=== PATIENT | female | born 1975 | race Caucasian/White ===

== ENCOUNTER → 2017-10-25 11:07 | Outpatient (CLI) | payer MEDICARE, SELFPAY ==
[2017-10-25 13:30] LABS: Basophils % 0.4 % (0.1-2.0); Eosinophils # 0.3 K/mm3 (0.0-0.4); Eosinophils % 2.8 % (0.1-12.0); Hematocrit 44.6 % (37.0-47.0); Hemoglobin 14.8 g/dL (12.2-16.2); Lymphocytes # 4.4 K/mm3 (0.7-4.5); Lymphocytes % 40.2 K/mm3 (10-50); Mean Corpuscular HGB Conc 33.2 g/dL (31.8-35.4); Mean Corpuscular Volume 93.6 fl (81-99); Mean Platelet Volume 7.6 fl (7.4-10.4); Monocytes # 0.5 K/mm3 (0.1-1.0); Neutrophils # 5.7 K/mm3 (1.8-7.8); Neutrophils % 51.8 % (37.0-80.0); Platelet Count 322 K/mm3 (142-424); Red Blood Count 4.77 M/mm3 (4.20-5.40); Red Cell Distribution Width 13.4 % (11.5-17.5)
== END ==
PROVIDERS: PCP Physician Assistant
DX: H46.8 Other optic neuritis (principal)
CPT/HCPCS: 36415; 85025

== ENCOUNTER 2017-11-04 00:43 | Emergency (ER) | payer MEDICARE, SELFPAY ==
[2017-11-04 00:45] VITALS: BP 142/94; PULSE 100; RESP 20; TEMP 36.3; O2SAT 98; BMI 29.4
--- NOTE | 2017-11-04 00:56 | XR_ITS ---
XR chest portable HISTORY: ITS.REASON: CHEST PAIN ORDERING PHYSICIAN: Eric Riley MD PATIENT AGE: 42 years COMPARISON: 07/18/2016 FINDINGS: The cardiomediastinal silhouette and pulmonary vascularity are within normal limits. The lungs are clear without infiltrates, suspicious nodules, or pleural effusions. Minimal atelectatic change noted in the left lung base. Old Granulomatous disease No acute bony abnormalities. IMPRESSION: Minimal left basilar atelectasis otherwise negative
--- NOTE | 2017-11-04 01:25 | HMH.EDCP ---
ED Disposition Clinical Impression: PSVT (paroxysmal supraventricular tachycardia), Hypokalemia Disposition: Home, Self-Care Condition on Discharge: Good Instructions: Paroxysmal Supraventricular Tachycardia, Hypokalemia Additional Instructions: Please follow up with your fitting room maintenance mechanic within the next 3-5 days. Referrals: Yolanda Christensen PA [Primary Care Provider] - Time of Disposition: 02:29 - Critical Care Critical Care Time: No Attestation: On , the high probability of a clinically significant, sudden or life threatening deterioration of the following system(s) required my full and direct attention, intervention and personal management. The time I documented below is in addition to time spent performing reported procedures but includes the following listed in this critical care notation. Medical Decision Making - Medical Records Medical records reviewed: Yes: I reviewed the patient's medical records. Vital Signs: 11/04/17 00:45 11/04/17 03:37 Temperature 97.4 F L 98.6 F Temperature Source Temporal Artery Scan Pulse Rate 119 H Pulse Rate [Right Brachial] 100 H Respiratory Rate 20 18 Blood Pressure 133/89 Blood Pressure [Right Arm] 142/94 Blood Pressure Mean [Right Arm] 110 Blood Pressure Source Automatic Cuff Blood Pressure Source [Right Arm] Automatic Cuff Blood Pressure Position Supine Blood Pressure Position [Right Arm] Supine 02 Sat by Pulse Oximetry 98 Oxygen Delivery Method Nasal Cannula Room Air Oxygen Flow Rate (LPM) 2 - Lab Data Lab results reviewed: Yes: I reviewed the patient's lab results. Lab Results 11/04/17 01:06: Urine Color Yellow, Urine Appearance Clear, Urine pH 7.0, Ur Specific [place] 1.010, Urine Protein Negative, Urine Glucose (UA) Negative, Urine Ketones Negative, Urine Blood Negative, Urine Nitrate Negative, Urine Bilirubin Negative, Urine Urobilinogen 0.2, Ur Leukocyte Esterase Negative, Urine WBC 3-5, Ur Squamous Epith Cells 3-5, Urine Bacteria 1+ 11/04/17 01:06: WBC 13.3 H, RBC 4.40, Hgb 13.8, Hct 41.2, MCV 93.7, MCH 31.4 H, MCHC 33.5, RDW 14.3, Plt Count 335, MPV 7.3 L, Neut % (Auto) 68.5, Lymph % (Auto) 27.1, Marion % (Auto) 3.1, Eos % (Auto) 1.0, Baso % (Auto) 0.2, Neut # (Auto) 9.1 H, Lymph # (Auto) 3.6, Marion # (Auto) 0.4, Eos # (Auto) 0.1, Baso # (Auto) 0.0 11/04/17 01:06: Urine HCG, Qual Negative 11/04/17 01:06: Sodium 139, Potassium 3.3 L, Chloride 102, Carbon Dioxide 29, Anion Gap 11.3, BUN 13, Creatinine 0.90, Estimated Creat Clear 97, Estimated GFR 69, Est GFR ( Amer) 83, Glucose 93, Calcium 8.3 L, Total Bilirubin 0.3, AST 10 L, ALT 24, Alkaline Phosphatase 77, Total Creatine Kinase 37, CK-MB (CK-2) 0.8, CK-MB (CK-2) Rel Index 2.2, Troponin I < 0.02, Total Protein 6.5, Albumin 3.3 L, Globulin 3.2, Albumin/Globulin Ratio 1.0 L Result diagrams: 11/04/17 01:06 11/04/17 01:06 Orders (Tests/Meds): ED MEDICATIONS Discontinued Medications Generic Name Dose Route Start Last Admin Trade Name Freq PRN Reason Stop Dose Admin Acetaminophen 650 mg 11/04/17 00:57 11/04/17 01:23 Acetaminophen 325mg Tab PO 11/04/17 00:58 650 mg ONCE ONE Administration Potassium Chloride 40 meq 11/04/17 02:29 11/04/17 02:46 Klor-Con 20meq Tablet PO 11/04/17 02:30 40 meq ONCE ONE Administration - Radiology Data #1 Image(s): Chest Image Reviewed: Yes I reviewed the patient's radiology results, Yes I reviewed the patient's radiology image, Yes I discussed the image results w/the radiologist Preliminary Findings: Normal/NAD - ECG Data Tracing #1 I reviewed this ECG and interpreted as documented below: ECG normal with no acute: arrhythmias, ischemia, conduction abnormalities, chamber hypertrophy Normal Sinus Rhythm: Yes - Ezequiel Inquiry Pt receiving controlled substance: No - Reevaluation(s) Time: 02:15 Reevaluation #1: Medically stable, advised to follow up with cardiology per discharge instructions. Chest Maximino
[2017-11-04 01:33] LABS: Urine Pregnancy, HCG Qual. Negative (Negative)
[2017-11-04 01:39] LABS: Basophils % 0.2 % (0.1-2.0); Eosinophils # 0.1 K/mm3 (0.0-0.4); Hematocrit 41.2 % (37.0-47.0); Hemoglobin 13.8 g/dL (12.2-16.2); Lymphocytes # 3.6 K/mm3 (0.7-4.5); Lymphocytes % 27.1 K/mm3 (10-50); Mean Corpuscular HGB Conc 33.5 g/dL (31.8-35.4); Mean Corpuscular Hemoglobin 31.4 pg (27.0-31.2); Mean Corpuscular Volume 93.7 fl (81-99); Mean Platelet Volume 7.3 fl (7.4-10.4); Monocytes # 0.4 K/mm3 (0.1-1.0); Monocytes % 3.1 % (1.7-9.3); Neutrophils # 9.1 K/mm3 (1.8-7.8); Neutrophils % 68.5 % (37.0-80.0); Platelet Count 335 K/mm3 (142-424); Red Cell Distribution Width 14.3 % (11.5-17.5); White Blood Count 13.3 K/mm3 (4.8-10.8)
[2017-11-04 01:59] LABS: Alanine Aminotransferase 24 U/L (12-78); Albumin Level 3.3 gm/dL (3.4-5.0); Alkaline Phosphatase 77 U/L (46-116); Anion Gap 11.3 mEq/L (5-15); Aspartate Amino Transferase 10 U/L (15-37); Bilirubin,Total 0.3 mg/dL (0.2-1.0); Blood Urea Nitrogen 13 mg/dL (7-18); CKMB Relative Index 2.2 U/L (0-4.0); Calcium 8.3 mg/dL (8.5-10.1); Carbon Dioxide 29 mmol/L (21.0-32.0); Chloride 102 mmol/L (98-107); Creatine Kinase 37 U/L (26-192); Creatine Kinase MB 0.8 mg/ml (0.0-3.6); Creatinine Clearance Estimated 97 mL/min (0-300); Estimated Glomerular Filt Rate 69 ml/min (>60); GFR (African American) 83 ML/MIN (>60); Globulin 3.2 gm/dl (1.3-3.2); Glucose 93 mg/dL (74-106); Potassium 3.3 mmoL/L (3.5-5.1); Sodium 139 mmol/L (136-145); Total Protein,Serum 6.5 gm/dL (6.4-8.2); Troponin I < 0.02 ng/ml (0.00-0.06)
[2017-11-04 02:12] LABS: Appearance,Urine CLEAR (Clear); Bilirubin,Urine Negative (Negative); Blood, Urine Negative (Negative); Color,Urine YELLOW (Yellow); Glucose,Urine (UA) Negative (Negative); Ketones,Urine Negative (Negative); Leukocyte Esterase,Urine Negative (Negative); Microscopic, Urine URINE MICROSCOPIC (MICROSCOPIC); Nitrate,Urine Negative (Negative); Protein,Urine Negative (Negative); Urobilinogen,Urine 0.2 EU/dl (0.2)
[2017-11-04 02:22] LABS: Bacteria,Urine 1+ /lpf
[2017-11-04 03:37] VITALS: BP 133/89; PULSE 119; RESP 18; TEMP 37; O2SAT 99
== END 2017-11-04 03:41 | disposition home or self-care (01) ==
PROVIDERS: Emergency Provider Emergency Medicine; Family Provider Physician Assistant; PCP Physician Assistant
DX: I47.1 Supraventricular tachycardia (principal); E87.6 Hypokalemia; I10 Essential (primary) hypertension; E55.9 Vitamin D deficiency, unspecified; J45.909 Unspecified asthma, uncomplicated; G25.81 Restless legs syndrome; Z79.899 Other long term (current) drug therapy
CPT/HCPCS: 71045; 80053; 81001; 81025; 82550; 82553; 84484; 85025; 93005; 93041; 96365; 99282

== ENCOUNTER → 2017-11-24 09:00 | Outpatient (REF) | payer MEDICARE, SELFPAY ==
[2017-11-24 13:40] LABS: Basophils % 0.3 % (0.1-2.0); Eosinophils # 0.2 K/mm3 (0.0-0.4); Eosinophils % 2.1 % (0.1-12.0); Hematocrit 44.7 % (37.0-47.0); Hemoglobin 15.1 g/dL (12.2-16.2); Lymphocytes # 2.3 K/mm3 (0.7-4.5); Lymphocytes % 20.9 K/mm3 (10-50); Mean Corpuscular HGB Conc 33.8 g/dL (31.8-35.4); Mean Corpuscular Hemoglobin 31.2 pg (27.0-31.2); Mean Corpuscular Volume 92.2 fl (81-99); Mean Platelet Volume 8.5 fl (7.4-10.4); Monocytes # 0.5 K/mm3 (0.1-1.0); Monocytes % 4.9 % (1.7-9.3); Neutrophils # 7.7 K/mm3 (1.8-7.8); Neutrophils % 71.8 % (37.0-80.0); Platelet Count 419 K/mm3 (142-424); Red Blood Count 4.84 M/mm3 (4.20-5.40); Red Cell Distribution Width 13.6 % (11.5-17.5); White Blood Count 10.8 K/mm3 (4.8-10.8)
[2017-11-24 13:58] LABS: Alanine Aminotransferase 26 U/L (12-78); Albumin Level 3.7 gm/dL (3.4-5.0); Albumin/Globulin Ratio 1.1 (1.1-1.8); Alkaline Phosphatase 86 U/L (46-116); Anion Gap 14.4 mEq/L (5-15); Aspartate Amino Transferase 8 U/L (15-37); Bilirubin,Total 0.8 mg/dL (0.2-1.0); Blood Urea Nitrogen 10 mg/dL (7-18); Carbon Dioxide 26 mmol/L (21.0-32.0); Chloride 105 mmol/L (98-107); Chol/HDL Ratio 5.1 (1-3.5); Cholesterol 236 mg/dL (140-200); Creatinine,Serum 0.78 mg/dL (0.55-1.02); Estimated Glomerular Filt Rate 81 ml/min (>60); Free T4 (Free Thyroxine) 0.96 ng/dl (0.76-1.46); GFR (African American) 98 ML/MIN (>60); Globulin 3.4 gm/dl (1.3-3.2); Glucose 72 mg/dL (74-106); HDL Cholesterol 46 mg/dL (29-89); LDL Cholesterol 159 mg/dL (0-130); Potassium 4.4 mmoL/L (3.5-5.1); Sodium 141 mmol/L (136-145); T4 (Thyroxine) 9.8 ug/dl (4.7-13.3); Thyroid Stimulating Hormone 2.04 uIU/ml (0.358-3.740); Total Protein,Serum 7.1 gm/dL (6.4-8.2); Triglycerides 155 mg/dL (30-200); VLDL Cholesterol 31 mg/dL (0-40)
[2017-11-25 08:28] LABS: Hep A Ab, IgM Negative (Negative); Hepatitis B Core Antibody IgM Negative (Negative); Hepatitis B Surface Antigen Negative (Negative); Thyroid Peroxidase Antibodies 16 IU/mL (0-34)
[2017-11-25 11:40] LABS: Hepatitis C Antibody <0.1 s/co ratio (0.0-0.9); Triiodothyronine (T3) Free 3.8 pg/mL (2.0-4.4)
[2017-12-22 13:15] LABS: Thyroid Stimulating Immunoglob < 0.10
== END ==
LOC: LAB 09:00
PROVIDERS: Visit Provider Physician Assistant
DX: M54.2 Cervicalgia (principal); I47.1 Supraventricular tachycardia; I10 Essential (primary) hypertension; R53.83 Other fatigue; Z20.5 Contact with and (suspected) exposure to viral hepatitis; E04.1 Nontoxic single thyroid nodule
CPT/HCPCS: 80053; 80061; 80074; 83520; 84436; 84439; 84443; 84481; 85025; 86376

== ENCOUNTER → 2017-12-09 10:57 | Outpatient (CLI) | payer MEDICARE, MEDICAID, SELFPAY ==
--- NOTE | 2017-12-09 11:00 | US_ITS ---
US thyroid COMPARISON: None HISTORY: Possible not felt on left side of neck TECHNIQUE: Targeted ultrasound the thyroid FINDINGS: The isthmus of the gland appears normal. The right lobe measures 1.3 x 1.6 x 4.2 cm. There is homogeneous echogenicity with no suspicious cystic or solid lesions identified. The left lobe measures 1.0 x 1.5 x 4.1 cm. Is a tiny hypoechoic nodule lower pole measuring 0.3 x 0.2 x 0.3 cm. There is a similar hypoechoic nodule upper mid pole measuring 0.3 x 0.1 cm. There is decreased vascularity to each lobe. IMPRESSION: Normal size gland with tiny hypoechoic nodules left lobe 2. Small to definitely characterize but possibly representing small cyst with internal debris
== END ==
PROVIDERS: Family Provider Physician Assistant; PCP Physician Assistant; Visit Provider Physician Assistant
DX: E04.1 Nontoxic single thyroid nodule (principal)
CPT/HCPCS: 76536

== ENCOUNTER → 2018-01-05 10:18 | Outpatient (CLI) | payer MEDICARE, MEDICAID, SELFPAY ==
--- NOTE | 2018-01-05 10:19 | CT_ITS ---
CT chest w con HISTORY: ITS.REASON: CHEST PAIN PSVT ORDERING PHYSICIAN: Gabriel Vernon MD PATIENT AGE: 42 years TECHNIQUE: Axial images obtained following the administration of 75 mL of Isovue 370 . Sagittal, and coronal reformatted images are also generated and reviewed. All CT scans at the facility use one or more dose reduction, viz: automated exposure control; ma/kV adjustment per patient size (including targeted exams where dose is matched to indication; i.e. head); or iterative reconstruction technique. COMPARISON: FINDINGS: No mediastinal or hilar mass or adenopathy is evident. PULMONARY ARTERIES:No central pulmonary embolus evident. AORTA:No acute finding. No thoracic aortic aneurysm or dissection evident LUNGS:There is calcified granuloma in the left upper lobe medially. PLEURAL SPACES:No significant effusion. No evidence of pneumothorax. HEART:Unremarkable. Normal heart size. No significant pericardial effusion. MEDIASTINAL AND HILAR STRUCTURES:No mediastinal or hilar mass evident. No dominant adenopathy. BONY STRUCTURES:No acute bony abnormalities apparent LYMPH NODES:No enlarged lymph nodes evident UPPER ABDOMEN:Unremarkable IMPRESSION: Negative CT scan chest with contrast.
== END ==
PROVIDERS: Family Provider Physician Assistant; PCP Physician Assistant; Visit Provider Internal Medicine Cardiovascular Disease
DX: R07.9 Chest pain, unspecified (principal); R06.00 Dyspnea, unspecified; I47.1 Supraventricular tachycardia; R00.2 Palpitations; E78.5 Hyperlipidemia, unspecified; R94.31 Abnormal electrocardiogram [ECG] [EKG]
CPT/HCPCS: 71260; Q9967

== ENCOUNTER → 2018-01-16 06:32 | Outpatient (CLI) | payer MEDICARE, MEDICAID, SELFPAY ==
--- NOTE | 2018-01-16 06:34 | NM_ITS ---
CARDIOLITE SPECT MYOCARDIAL PERFUSION SCAN, REST AND STRESS: EXERCISE STRESS [facility] REVIEW QGS EF AND WALL MOTION EVALUATION: QPS - PERFUSION EVALUATION HISTORY: ABNORMAL EKG, SOA, C.P. DOSE: 10.14 mCi technetium 99m mibi intravenously at rest followed by 31.7 mCi technetium 99m mibi following the intravenous ministration of 0.4 mg of Lexiscan. Resting blood pressure is 137/88. Stress blood pressure 157/85. FINDINGS: Ejection fraction is calculated to be 76. Uniform myocardial activity through stress and rest IMPRESSION: No scintigraphic evidence of Lexiscan-induced myocardial ischemia normal ejection fraction normal wall motion
--- NOTE | 2018-01-16 06:34 | CA_ITS ---
PROCEDURE: 2-D M-mode and color Doppler study INDICATIONS FOR THE TEST: Chest pain+ COPD Heart Murmur Tobacco Smoking+ Palpitations+ Fatigue Syncope Edema Hypertension Diabetes Mellitus Rheumatic Fever SOB+MONTEJO Obesity Hyperlipidemia+ Family History HD Additional History ABN EKG PATIENT INFORMATION HEIGHT: 63 WEIGHT:177 GENDER: Female B/P:131/81 2-D/M-MODE INTERPRETATION: 2-D MEASUREMENTS OBSERVED VALUES IN CMS Right Ventricular Dimension (RVDd) 1.9 Interventricular Septum (Thickness)(IVsd) 1.4 Left Ventricular Internal Dimensions(LVIDd) 4.5 Left Ventricular Posterior Wall (Thickness)(LVPWd) 0.6 Aortic Root 2.9 Aortic Cusp Separation 1.8 Left Atrial Dimensions (LAD) 3.5 2D 1. Technically difficult study because of the patient's factor and poor acoustic windows 2. Left atrium is normal size, left ventricle is normal size, visually estimated ejection fraction 55% with no obvious regional wall motion abnormality. 3. The right atrium and right ventricle are normal size and contractility. 4. The aortic, mitral and tricuspid valve are grossly normal. 5. The pulmonic valve is poorly visualized. 6. No significant pericardial effusion noted. DOPPLER INTERROGATION: Doppler interrogation of the aortic, mitral and tricuspid valvular presence of mild mitral and tricuspid regurgitation, tricuspid and enteric velocity insufficient for calculation of the right ventricular systolic pressure, diastolic parameters are within normal range. CONCLUSION: 1. Normal left ventricular size, preserved left ventricular systolic function, visually estimated ejection fraction 55% with no obvious regional wall motion abnormality, diastolic parameters are within normal range. 2. Mild mitral and tricuspid regurgitation 3. No significant pericardial effusion noted.
--- NOTE | 2018-01-16 08:36 | HMH.ITSHM ---
albuterol venlafaxine valacylovir ropinirole omeprazole metoprolol atorvastatin
== END ==
PROVIDERS: Family Provider Physician Assistant; PCP Physician Assistant; Visit Provider Internal Medicine Cardiovascular Disease
DX: I47.1 Supraventricular tachycardia (principal); R06.00 Dyspnea, unspecified; R00.2 Palpitations; R94.31 Abnormal electrocardiogram [ECG] [EKG]; E78.5 Hyperlipidemia, unspecified
CPT/HCPCS: 71045; 78452; 80053; 82150; 82550; 82553; 83690; 84484; 85025; 93005; 93017; 93306; 96365; 99284; A9502; J2785

== ENCOUNTER → 2019-03-21 13:28 | Outpatient (CLI) | payer MEDICARE, SELFPAY ==
--- NOTE | 2019-03-21 13:32 | US_ITS ---
US thyroid HISTORY: ITS.REASON: BENIGN NEOPLASM OF THYROID GLAND ORDERING PHYSICIAN: Irma Meade APRN PATIENT AGE: 43 years Comparison: None FINDINGS: Right thyroid lobe is 1.3 x 4.1 x 1.3 cm. Left thyroid lobe is 1.1 x 4.4 x 1.4 cm. The echogenicity of the thyroid gland appears normal. The isthmus is 3.5 mm in AP diameter. The previously described punctate left thyroid lobe hypoechoic nodules are stable. There is no change in the nodules and there are no new nodules. The right lobe shows no nodularity. IMPRESSION: No change in the small left lower lobe nodules. No suspicious nodule in this exam.
== END ==
PROVIDERS: PCP Nurse Practitioner Family; Visit Provider Nurse Practitioner Family
DX: D34 Benign neoplasm of thyroid gland (principal)
CPT/HCPCS: 76536

== ENCOUNTER → 2019-06-27 14:03 | Outpatient (CLI) | payer MEDICARE, SELFPAY ==
--- NOTE | 2019-06-27 14:10 | XR_ITS ---
PROCEDURE: XR FOOT LT MIN 3V CLINICAL INDICATION: Left foot injury COMPARISON: No exams were available for comparison FINDINGS: No fracture or dislocation. No lytic or blastic change. There is normal mineralization. The joint spaces are well-preserved. No significant degenerative/arthritic changes. No erosive changes evident. Other findings:None. IMPRESSION: No acute findings. Dictated by: Jitendra Armendariz 06/27/2019 14:28 Electronically signed by Jitendra Armendariz in [place] 06/27/2019 14:28
--- NOTE | 2019-06-27 14:10 | XR_ITS ---
PROCEDURE: XR ANKLE LT MIN 3V CLINICAL INDICATION: Left foot pain COMPARISON: No exams were available for comparison FINDINGS: Bone density, joint spaces and alignment are normal. There is no acute fracture. Soft tissues are unremarkable. There is a 2 millimeter plantar calcaneal spur. IMPRESSION: No acute process. Dictated by: Jitendra Armendariz 06/27/2019 14:29 Electronically signed by Jitendra Armendariz in [place] 06/27/2019 14:29
[2019-06-27 14:49] LABS: Basophils % 0.4 % (0.1-2.0); Eosinophils # 0.1 K/mm3 (0.0-0.4); Eosinophils % 1.3 % (0.1-12.0); Hematocrit 37.4 % (37.0-47.0); Hemoglobin 11.6 g/dL (12.2-16.2); Lymphocytes # 2.1 K/mm3 (0.7-4.5); Lymphocytes % 18.5 % (10-50); Mean Corpuscular HGB Conc 31.1 g/dL (31.8-35.4); Mean Corpuscular Hemoglobin 26.7 pg (27.0-31.2); Mean Platelet Volume 7.8 fl (7.4-10.4); Monocytes # 0.6 K/mm3 (0.1-1.0); Monocytes % 5.4 % (1.7-9.3); Neutrophils # 8.2 K/mm3 (1.8-7.8); Neutrophils % 74.4 % (37.0-80.0); Platelet Count 408 K/mm3 (142-424); Red Blood Count 4.35 M/mm3 (4.20-5.40); Red Cell Distribution Width 15.9 % (11.5-17.5)
[2019-06-27 16:54] LABS: Alanine Aminotransferase 20 U/L (12-78); Albumin Level 3.7 gm/dL (3.4-5.0); Albumin/Globulin Ratio 1.2 (1.1-1.8); Alkaline Phosphatase 83 U/L (46-116); Anion Gap 15.9 mEq/L (5-15); Aspartate Amino Transferase 15 U/L (15-37); Bilirubin,Total 0.4 mg/dL (0.2-1.0); Blood Urea Nitrogen 7 mg/dL (7-18); Calcium 8.5 mg/dL (8.5-10.1); Carbon Dioxide 25 mmol/L (21.0-32.0); Chloride 104 mmol/L (98-107); Cholesterol 184 mg/dL (140-200); Creatinine,Serum 0.74 mg/dL (0.55-1.02); Estimated Glomerular Filt Rate 86 ml/min (>60); GFR (African American) 104 ML/MIN (>60); Globulin 3.1 gm/dl (1.3-3.2); Glucose 75 mg/dL (74-106); HDL Cholesterol 37 mg/dL (29-89); LDL Cholesterol 105 mg/dL (0-130); Potassium 3.9 mmoL/L (3.5-5.1); Sodium 141 mmol/L (136-145); Thyroid Stimulating Hormone 2.32 uIU/ml (0.358-3.740); Total Protein,Serum 6.8 gm/dL (6.4-8.2); Triglycerides 208 mg/dL (30-200); VLDL Cholesterol 42 mg/dL (0-40)
[2019-06-29 17:11] LABS: Vitamin D 25 Hydroxy 25.7 ng/mL (30.0-100.0)
== END ==
PROVIDERS: PCP Physician Assistant; Visit Provider Physician Assistant
DX: S99.922A Unspecified injury of left foot, initial encounter (principal); I47.1 Supraventricular tachycardia; R07.9 Chest pain, unspecified
CPT/HCPCS: 36415; 73610; 73630; 80053; 80061; 82652; 84443; 85025

== ENCOUNTER → 2019-08-29 15:09 | Outpatient (CLI) | payer MEDICARE, SELFPAY ==
--- NOTE | 2019-08-29 15:37 | MM_ITS ---
PROCEDURE: MM DIG SCREENING MAMM BI W/CAD CLINICAL INDICATION: SCREENING There is a history of breast cancer patient's paternal aunt. COMPARISON: None, this is baseline screening exam TECHNIQUE: Standard CC and MLO images were obtained. R2 CAD reviewed. FINDINGS: Moderate diffuse fibroglandular densities are seen throughout both breasts. There are few scattered benign-appearing microcalcifications in each breast more numerous right side than left. There is a possible asymmetric density upper-outer quadrant right breast highlighted by CAD. This likely is a summation shadow but recommend patient return for spot compression views in the MLO and CC projection, ultrasound may be necessary as well depending on the mammogram findings. There are no suspicious microcalcifications. There are fatty replaced nodes in both axilla. IMPRESSION: Fibrofatty parenchyma with possible asymmetric density right breast BI-RAD Category: 0 Need Additional Imaging Evaluation FOLLOW-UP: IMM Immediate Follow-up Recommended (A letter has been sent to the patient regarding results of the study.) Dictated by: Dr. Eric Jesus MD 08/31/2019 12:[address] Eric Jesus MD in [place] 08/31/2019 12:47
== END ==
PROVIDERS: PCP Physician Assistant; Visit Provider Nurse Practitioner Family
DX: Z12.31 Encounter for screening mammogram for malignant neoplasm of breast (principal)
CPT/HCPCS: 77067

== ENCOUNTER → 2019-09-21 13:18 | Outpatient (CLI) | payer MEDICARE, SELFPAY ==
--- NOTE | 2019-09-21 13:22 | MM_ITS ---
PROCEDURE: MM DIG MAMM DX UNILAT RT CAD CLINICAL INDICATION: ABNORMAL MAMM The follow-up abnormal mammogram, asymmetric density COMPARISON: MM DIG SCREENING MAMM BI W/CAD from 08/29/2019 US BREAST LT COMPLETE from 09/21/2019 TECHNIQUE: Problem solving views performed along with right breast ultrasound FINDINGS: Average fibroglandular tissue. Asymmetric area of increased density in the superior right breast does appear to somewhat compress out on focal spot compression view. This also somewhat effaces on the mL view. There is some persistent asymmetry in the lateral right breast the which appears to press out on the focal: Spot compression view. Right breast ultrasound: There are 2 small cyst at 9 o'clock near the nipple at 6 mm each. No suspicious breast nodules apparent IMPRESSION: Probably benign findings right breast. No convincing evidence of malignancy regarding areas of asymmetry. Recommend six-month mammographic and sonographic follow-up BI-RAD Category: 3 Probably Benign Finding Short Term Follow-up FOLLOW-UP: 6M 6Month Follow-up (A letter has been sent to the patient regarding results of the study.) Dictated by: Jasvir Ayala MD 09/29/2019 09:35 Electronically signed by Jasvir Ayala MD in [place] 09/29/2019 09:35
== END ==
PROVIDERS: PCP Physician Assistant; Visit Provider Nurse Practitioner Family
DX: R92.2 Inconclusive mammogram (principal)
CPT/HCPCS: 76641; 77065

== ENCOUNTER → 2020-05-06 14:50 | Outpatient (CLI) | payer MEDICARE, MEDICAID, SELFPAY ==
--- NOTE | 2020-05-06 14:50 | MR_ITS ---
PROCEDURE: MR LUMBAR SPINE WO CON CLINICAL INDICATION: LBP, LLE numbness LBP. Bilateral leg pain, numbness and tingling. X2-3yrs. No injury. X-ray 10/22/2016 COMPARISON: CR [id number] LUMBAR SPINE-2 TO 3 VIEWS from 10/22/[address] chest w con from 01/05/2018 TECHNIQUE: Standard multiplanar multiecho sequences are performed without contrast. 3-D MIP and myelographic images are also rendered and reviewed FINDINGS: The spinal cord ends at the T12-L1 level. 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 A transitional segment is present at the lumbosacral junction and is labeled as L5. Please correlate with appropriate imaging if there is any intervention contemplated. T12-L1: Unremarkable. L1-L2: Unremarkable. L2-L3: Unremarkable. L3-L4: There is mild degenerative disc disease. There is prominent facet and ligamentum hypertrophy with bilateral lateral recess and foraminal narrowing. The facet and ligamentum hypertrophy is causing canal stenosis at this level with the canal measuring approximately 10 mm. L4-5: Degenerative disc disease. There is 3-4 mm anterolisthesis of L4. There is facet and ligamentum hypertrophy with mild bilateral foraminal narrowing. L5-S1: Unremarkable. IMPRESSION: 1. L3-L4: There is mild degenerative disc disease. There is prominent facet and ligamentum hypertrophy with bilateral lateral recess and foraminal narrowing. The facet and ligamentum hypertrophy is causing canal stenosis at this level with the canal measuring approximately 10 mm. 2. L4-5: Degenerative disc disease. There is 3-4 mm anterolisthesis of L4. There is facet and ligamentum hypertrophy with mild bilateral foraminal narrowing. 3. No extruded herniated disc evident Dictated b Jasvir Ayala MD 05/07/2020 11:49 Jasvir Ayala MD in [place] 05/07/2020 11:49
== END ==
PROVIDERS: PCP Physician Assistant; Visit Provider Physician Assistant
DX: M54.5 Low back pain (principal); M79.605 Pain in left leg
CPT/HCPCS: 72148; 76376

== ENCOUNTER → 2020-07-14 14:42 | Outpatient (POV) | payer MEDICARE, MEDICAID, SELFPAY ==
[2020-07-14 14:53] VITALS: BP 152/92; PULSE 94; RESP 18; TEMP 36.3; O2SAT 98; BMI 32.9
--- NOTE | 2020-07-14 15:30 | HMH.PMCON ---
Assessment and Plan (1) Degenerative joint disease (DJD) of lumbar spine Status: Chronic Qualifiers: Spinal osteoarthritis complication: with radiculopathy Qualified Code(s): M47.26 - Other spondylosis with radiculopathy, lumbar region Category: Medical Code(s): M47.816 - Spondylosis without myelopathy or radiculopathy, lumbar region (2) Lumbar radiculopathy Status: Chronic Category: Medical Code(s): M54.16 - Radiculopathy, lumbar region - Assessment and plan all Dx Assessment and Plan for all problems:: We will schedule the patient for an L4-L5 lumbar epidural steroid injection. Patient's been instructed to call the office if she has any issues prior to her next appointment. She is not on any anticoagulation therapy. I will follow-up with her after this reassess her symptoms at that time she has been instructed to call the office if she has any issues prior to her next appointment. Dr. Escobar has reviewed this note and agrees with this plan of care. This note was dictated using voice recognition software and may contain errors or omissions HPI - Data of Consult Patient: new to practice Consult date: 07/14/20 Requesting Physician: Vi Bruner APRN Primary Care Provider: FLORENTINO Whitman - Consult Narrative Reason for consult: Back pain History of present illness: Ms. Sanchez is a 45 year old female who presents today for consultation regards her low back and leg pain. Patient has had back pain for several years. It is worsening. Is in her low back radiating down her right leg to her toes. Patient does have an MRI showing mild degenerative disc disease, facet and ligamentum flavum hypertrophy, stenosis. Patient states that she was diagnosed with an extra vertebrae by her chiropractor. This is not noted on the MRI. Patient is going to a chiropractor often with no long-term relief. She is tried and failed anti-inflammatories and medication for over 6 months. She rates her pain today a 6 out of 10. She is not on any anticoagulation therapy. CC: Vi Bruner APRN [facility] History I have reviewed the patient's past medical history: Yes 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: Reports:: Asthma, Hyperlipidemia, Hypertension, Migraine Denies:: Cancer, Diabetes Mellitus Type 1, Diabetes Mellitus Type 2, Internal Pacemaker, MRSA *Have you ever received a pneumonia vaccine?: No *Have you received a flu vaccine this season?: No Laterality Cases: Left: Other, Bilateral: Tonsillectomy Other Surgeries: Yes: , Diagnostic Lap, Tubal Ligation, Other (ablation). No: Pacemaker Amputation: No Fractures: No - *Social History Smoking Status: Current every day smoker Tobacco Type: cigarettes # Packs/Day (cigarettes): 1 Alcohol Intake: never Alcohol Intake Frequency:: holidays/special occasions only Substance Use Type: denies use *Occupational Status:: unemployed Housing: apartment *Travel in the last 8 weeks: None Family Hx:: Diabetes, Heart Attack Review of Systems - Review of Systems ROS General: no recent weight change, no fever, no sleep disturbances Respiratory: no cough, no shortness of air, no recurring pulmonary infections Cardiovascular/Peripheral Vascular: No chest pain, No palpitations, no edema, no shortness of breath. Gastrointestinal: no new onset incontinence, normal bowel movements reported Genitourinary: no new onset incontinence Musculoskeletal: Back pain, leg pain Psychiatric: normal mood/ affect Neurological: [denies new onset weakness in extremities], [denies new onset balance issues] Meds Home Medications Medication Instructions Recorded Confirmed Type albuterol 90 mcg/actuation aerosol See Rx Instructions INHALATION 10/14/17 04/14/20 History inhaler Q6HP PRN atorvastatin 10 mg tablet 10 mg PO QHS #90 tab 04/14/20 04/14/20 Rx ibuprofen 800 mg tablet 800 mg PO Q8HP PRN #15 tab 04/14/20 04/14/20 Rx metoprolol succinate 50 mg 50 mg PO DAILY #90 tab 04/14/20 07
== END ==
PROVIDERS: PCP Physician Assistant; Visit Provider Clinical Nurse Specialist Family Health
DX: M47.26 Other spondylosis with radiculopathy, lumbar region (principal)
CPT/HCPCS: 99202

== ENCOUNTER 2020-07-18 11:53 | Day surgery (SDC) | payer MEDICARE, MEDICAID, SELFPAY ==
[2020-07-18 12:59] VITALS: BP 146/81; PULSE 88; RESP 18; TEMP 36.4; O2SAT 97; BMI 33.1
[2020-07-18 13:56] VITALS: BP 135/85; PULSE 85; RESP 18
[2020-07-18 13:57] VITALS: BP 138/89; PULSE 85; RESP 18; O2SAT 98
--- NOTE | 2020-07-18 14:05 | HMH.PMPROC ---
- Procedure Date: 07/18/20 Time: 14:05 Anesthesiologist:: Javier Escobar MD Complications:: None Pre-procedure Diagnosis:: Degenerative disc disease of lumbar spine with lumbar radiculopathy symptoms Post-procedure Diagnosis:: Same Indications for Procedure:: This patient is a pleasant 45-year-old white female who we are treating for low back pain with lumbar radiculopathy symptoms. Most of her pain is in her low back rating down the right leg. We will do a lumbar epidural steroid injection today to help her with her pain symptoms. Procedure Details:: Lumbar epidural steroid injection under fluoroscopy Informed consent was obtained and the risk and benefits of the procedure was explained to the patient. The patient was taken to the procedure room. The patient was placed prone on the procedure table. The patient was prepped and draped in sterile fashion. C-arm fluoroscopy was used to view the lumbar spine. Skin and subcutaneous tissues were anesthetized using lidocaine. I placed an 18-gauge epidural needle and advanced into the L4-L5 interspace using fluoroscopic guidance and [id number] to air. After confirmation of needle placement in the epidural space with dye I injected 2 mL of lidocaine 1.5% with Depo-Medrol 80 mg. Patient tolerated the procedure well with no complications. Plan and Disposition:: We will follow-up with her in 1 week. Will reevaluate symptoms at that time.
[2020-07-18 14:08] VITALS: BP 156/87; PULSE 83; RESP 20; O2SAT 99
== END 2020-07-18 14:09 | disposition home or self-care (01) ==
LOC: SC.PAINP 11:54
PROVIDERS: PCP Physician Assistant; Visit Provider Anesthesiology
DX: M51.16 Intervertebral disc disorders with radiculopathy, lumbar region (principal); I10 Essential (primary) hypertension; F32.9 Major depressive disorder, single episode, unspecified; K21.9 Gastro-esophageal reflux disease without esophagitis; Z72.0 Tobacco use; E78.5 Hyperlipidemia, unspecified; R00.2 Palpitations; F41.9 Anxiety disorder, unspecified; Z87.39 Personal history of other diseases of the musculoskeletal system and connective tissue; Z90.89 Acquired absence of other organs; Z79.899 Other long term (current) drug therapy
CPT/HCPCS: 62323; J1040; Q9966

== ENCOUNTER → 2020-09-23 14:42 | Outpatient (CLI) | payer MEDICARE, MEDICAID, SELFPAY ==
[2020-09-23 15:53] LABS: Anion Gap 12.2 mEq/L (5-15); Blood Urea Nitrogen 10 mg/dl (7-17); Calcium 10.1 mg/dl (8.4-10.2); Carbon Dioxide 25 mmol/L (22.0-30.0); Chloride 104 mmol/L (98-107); Estimated Glomerular Filt Rate 78 ml/min (>60); GFR (African American) 94 ML/MIN (>60); Glucose 98 mg/dl (74-100); Potassium 4.2 mmoL/L (3.5-5.1); Sodium 137 mmol/L (136-145)
[2020-09-23 16:09] LABS: Free T4 (Free Thyroxine) 1.05 ng/dl (0.78-2.19)
[2020-09-23 16:23] LABS: Thyroid Stimulating Hormone 3.74 uIU/mL (0.465-4.68)
== END ==
PROVIDERS: PCP Physician Assistant; Visit Provider Urology
DX: R00.2 Palpitations; R06.00 Dyspnea, unspecified; R07.2 Precordial pain; E78.49 Other hyperlipidemia; Z79.899 Other long term (current) drug therapy
CPT/HCPCS: 36415; 80048; 84439; 84443; 93270

== ENCOUNTER → 2020-09-29 12:53 | Outpatient (CLI) | payer MEDICARE, MEDICAID, SELFPAY ==
--- NOTE | 2020-09-29 12:54 | CA_ITS ---
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 Engine Mechanic: Santa Ellison CRT Ht: 5 ft 3 in Wt: 177lbs BSA: 1.84 BP: 141/84 mmHg Indications: Chest Pain, Shortness of Breath, Palpitations, Hyperlipidemia, Hypertension/HDD, asthma, SVT 2D Dimensions LVOT 1.72 cm (M/F) 1.5-2.5 M-Mode Dimensions RVDd 2.21 cm (0.9-2.6) LA Diam 3.50 cm (1.9-4.0) LVDd 4.48 cm (3.5-5.7) Ao Diam 3.08 cm (2.0-3.7) LVDs 2.93 cm (3.5-5.7) IVSd 1.12 cm (0.6-1.1) PWd 0.53 cm (0.6-1.1) EF (Teich) 63.90% FS 34.60% EDV (Teich) 91.50 mL ESV (Teich) 33.00 mL LV Diastology E Decel Time 207.00 (160-240 msec) E/A Ratio 0.93 MED E' 7.50 (< 7 cm/sec) E'/MED E' Ratio 11.03 (>14) LAT E' 8.90 (<10 cm/sec) E/LAT E' Ratio 9.29 (>14) Aortic Valve AO Peak GR. 5.90 mmHg Mitral Valve MV A Velocity 89.00 (40-130 cm/s) E/A Ratio 0.93 MV Decel. Time 207.00 (160-240 ms) Pulmonary Valve PV Peak Velocity 49.00 (50-150 cm/s) Tricuspid Valve TR P. Velocity 252.00 cm/s RAP Estimate 10.00 mmHg RVSP 35.40 mmHg Left Ventricle Left atrium is mildly enlarged, left ventricle is normal size, mild concentric left ventricular hypertrophy, visually estimated ejection fraction 55% with no regional wall motion abnormality, grade 1 diastolic dysfunction seen without tissue Doppler evidence of raise left atrial pressure. Right Ventricle Right atrium and right ventricle are normal size and contractility. Aortic Valve Aortic valve is grossly normal, there is no aortic stenosis or aortic insufficiency. Mitral Valve Mitral valve is grossly normal, there is trace mitral regurgitation. Tricuspid Valve Tricuspid valve grossly normal, there is trace tricuspid regurgitation, tricuspid regurgitation jet velocity is inadequate for calculation of the right ventricular systolic pressure. Pulmonic Valve Pulmonic valve is poorly visualized. Great Vessels Aortic root is normal size. Pericardium No significant pericardial effusion noted. Conclusion 1. Normal left ventricular size, preserved left ventricular systolic function, visually estimated ejection fraction 55% with no regional wall motion abnormality, grade 1 diastolic dysfunction seen without tissue Doppler evidence of raise left atrial pressure. 2. Trace mitral and tricuspid regurgitation. 3. No significant pericardial effusion noted. Electronically signed by : Gabriel Vernon, 09/30/2020 06:26:28
== END ==
PROVIDERS: PCP Physician Assistant; Visit Provider Urology
DX: E78.5 Hyperlipidemia, unspecified (principal); R00.2 Palpitations; R06.00 Dyspnea, unspecified; R07.9 Chest pain, unspecified
CPT/HCPCS: 93306

== ENCOUNTER → 2020-12-17 13:43 | Outpatient (CLI) | payer MEDICARE, MEDICAID, SELFPAY ==
[2020-12-17 13:55] LABS: Basophils # 0.1 K/mm3 (0-0.2); Basophils % 0.8 % (0.1-2.0); Eosinophils # 0.2 K/mm3 (0.0-0.4); Eosinophils % 1.9 % (0.1-12.0); Hematocrit 44.1 % (37.0-47.0); Hemoglobin 14.7 g/dL (12.2-16.2); Lymphocytes # 1.9 K/mm3 (0.7-4.5); Lymphocytes % 22.4 % (10-50); Mean Corpuscular HGB Conc 33.4 g/dL (31.8-35.4); Mean Corpuscular Hemoglobin 27.5 pg (27.0-31.2); Mean Corpuscular Volume 82.4 fl (81-99); Mean Platelet Volume 8.2 fl (7.4-10.4); Monocytes # 0.6 K/mm3 (0.1-1.0); Monocytes % 7.1 % (1.7-9.3); Neutrophils # 5.6 K/mm3 (1.8-7.8); Neutrophils % 67.9 % (37.0-80.0); Platelet Count 421 K/mm3 (142-424); Red Blood Count 5.35 M/mm3 (4.20-5.40); Red Cell Distribution Width 15.8 % (11.5-17.5); White Blood Count 8.3 K/mm3 (4.8-10.8)
[2020-12-17 14:07] LABS: Chloride 103 mmol/L (98-107); Potassium 5.4 mmoL/L (3.5-5.1); Sodium 139 mmol/L (136-145)
[2020-12-17 14:09] LABS: Alanine Aminotransferase 18 U/L (12-78); Aspartate Amino Transferase 23 U/L (14-36); Blood Urea Nitrogen 10 mg/dl (7-17); Estimated Glomerular Filt Rate 78 ml/min (>60); GFR (African American) 94 ML/MIN (>60)
[2020-12-17 14:10] LABS: Albumin Level 4.8 g/dl (3.5-5.0); Albumin/Globulin Ratio 1.5 (1.1-1.8); Alkaline Phosphatase 97 U/L (38-126); Anion Gap 15.4 mEq/L (5-15); Bilirubin,Total 0.9 mg/dl (0.2-1.3); Carbon Dioxide 26 mmol/L (22.0-30.0); Cholesterol 230 mg/dl (140-200); Globulin 3.1 g/dL (1.3-3.2); Glucose 91 mg/dl (74-100); HDL Cholesterol 46 mg/dl (40-60); Total Protein,Serum 7.9 g/dl (6.3-8.2); Triglycerides 131 mg/dl (30-150); VLDL Cholesterol 26 mg/dL (0-40)
[2020-12-17 14:23] LABS: Direct LDL Cholesterol 161.57 mg/dL (100-129)
== END ==
PROVIDERS: Visit Provider Emergency Medicine
DX: R10.9 Unspecified abdominal pain (principal); R53.83 Other fatigue; R07.9 Chest pain, unspecified
CPT/HCPCS: 80053; 80061; 85025

== ENCOUNTER → 2020-12-24 08:57 | Outpatient (CLI) | payer MEDICARE, MEDICAID, SELFPAY ==
--- NOTE | 2020-12-24 09:06 | NM_ITS ---
PROCEDURE: NM GASTRIC EMPTYING STUDY CLINICAL INDICATION: abdmonial pain COMPARISON: No exams were available for comparison TECHNIQUE: Dose 0.56 mCi of technetium sulfur colloid radiolabeled meal. FINDINGS: The T half of gastric emptying is 53 minutes, within normal limits. The 19 percent gastric emptying is noted at 200 and 67 minutes. IMPRESSION: Normal gastric empty study. Dictated by: Lucy Sandoval 12/25/2020 10:33 Lucy Sandoval in [place] 12/25/2020 10:33
--- NOTE | 2020-12-24 09:06 | US_ITS ---
PROCEDURE: US GALLBLADDER CLINICAL INDICATION: abdominal pain COMPARISON: No exams were available for comparison FINDINGS: Pancreas: The visualized pancreas is unremarkable. The tail is partially obscured. Liver: Unremarkable. There is appropriate direction of blood flow within a non dilated portal vein. Right kidney: Unremarkable appearing. No hydronephrosis. Gallbladder: No stones are evident. There is no gallbladder wall thickening. Common duct is normal in diameter. IMPRESSION: Negative gallbladder ultrasound. No stones evident. Dictated by: Lucy Sandoval 12/24/2020 11:45 Lucy Sandoval in [facility] 12/24/2020 11:45
== END ==
PROVIDERS: PCP Emergency Medicine; Visit Provider Emergency Medicine
DX: R10.9 Unspecified abdominal pain (principal)
CPT/HCPCS: 76705; 78264; A9541

== ENCOUNTER → 2020-12-30 15:17 | Outpatient (CLI) | payer MEDICARE, MEDICAID, SELFPAY | PROVIDERS: PCP Emergency Medicine; Visit Provider Urology | DX: R00.2 Palpitations; R06.00 Dyspnea, unspecified; R07.2 Precordial pain; Z01.818 Encounter for other preprocedural examination; Z20.822 Contact with and (suspected) exposure to COVID-19; E78.49 Other hyperlipidemia | CPT/HCPCS: U0003 ==

== ENCOUNTER 2021-01-01 11:27 | Day surgery (SDC) | payer MEDICARE, MEDICAID, SELFPAY ==
[2021-01-01 11:36] VITALS: BMI 32.1
[2021-01-01 12:05] VITALS: BP 161/98; PULSE 82; RESP 16; TEMP 36.8; O2SAT 96
[2021-01-01 12:12] VITALS: PULSE 82
[2021-01-01 12:55] VITALS: BP 156/90; PULSE 70; RESP 20; O2SAT 95
--- NOTE | 2021-01-01 12:59 | HMH.LOOP ---
[facility] Loop Recorder Date: 01/01/21 Time: 12:59 Procedure Performed:: Implantation of loop recorder Indication:: History of SVT Palpitations Technique:: Patient was brought to the cardiac Mechanic. After informed consent obtained, 1% lidocaine with epinephrine was used to anesthetize the site along the left anterior aspect of the chest near the sternal border. Using the preformed scalpel, an incision was made and using the supplied preloaded apparatus, the loop recorder was placed subcutaneously without difficulty. Following the deployment of the loop recorder interrogation of the device was performed to ensure appropriate voltage was being detected (0.21 mV). Once this was verified, Steri-Strips were placed over the incision and the patient was prepped to discharge home. Patient tolerated the procedure well with minimal discomfort. Impression:: Successful implantation of loop recorder Serial Number:: Zuse Lux DX Serial #[id number] Plan:: Routine postop care
== END 2021-01-01 13:11 | disposition home or self-care (01) ==
LOC: CATHLAB 11:27
PROVIDERS: PCP Emergency Medicine; Visit Provider Internal Medicine
DX: R07.2 Precordial pain (principal); E78.5 Hyperlipidemia, unspecified; R06.00 Dyspnea, unspecified; I10 Essential (primary) hypertension; Z72.0 Tobacco use; Z79.899 Other long term (current) drug therapy
CPT/HCPCS: 33285

== ENCOUNTER → 2021-01-20 13:55 | Outpatient (CLI) | payer MEDICARE, MEDICAID, SELFPAY ==
[2021-01-20 14:28] LABS: 25-OH Vitamin D, Total 17.5 ng/mL (30-100); Free T4 (Free Thyroxine) 1.24 ng/dl (0.78-2.19)
[2021-01-20 14:42] LABS: Thyroid Stimulating Hormone 4.42 uIU/mL (0.465-4.68)
[2021-01-20 15:01] LABS: Vitamin B12 483 pg/mL (239-931)
== END ==
PROVIDERS: Visit Provider Emergency Medicine
DX: R53.83 Other fatigue (principal); E55.9 Vitamin D deficiency, unspecified; Z79.899 Other long term (current) drug therapy
CPT/HCPCS: 82306; 82607; 84439; 84443

== ENCOUNTER → 2021-02-06 10:31 | Outpatient (CLI) | payer MEDICARE, MEDICAID, SELFPAY ==
--- NOTE | 2021-02-06 10:32 | NM_ITS ---
PROCEDURE: NM HEPATOBILIARY W PHARM CLINICAL INDICATION: Right upper quad pain COMPARISON: No exams were available for comparison TECHNIQUE: Dose 7.97 mCi of Choletec. Ensure was given. FINDINGS: The radioisotope passes into the common bile duct and small bowel without evidence of obstruction. The gallbladder activity is noted at 30 minutes. Gallbladder ejection fraction measures 33 percent. IMPRESSION: No evidence of cholecystitis or biliary obstruction. Normal gallbladder activity with ejection fraction of 33 percent. Dictated by: Lucy Sandoval 02/06/2021 14:01 Lucy Sandoval in OV 02/06/2021 14:01
== END ==
PROVIDERS: PCP Emergency Medicine; Visit Provider Emergency Medicine
DX: R10.11 Right upper quadrant pain (principal)
CPT/HCPCS: 78227; A9537

== ENCOUNTER → 2021-03-03 08:35 | Outpatient (CLI) | payer MEDICARE, MEDICAID, SELFPAY | PROVIDERS: PCP Emergency Medicine; Visit Provider Emergency Medicine | DX: Z01.812 Encounter for preprocedural laboratory examination (principal); Z11.52 Encounter for screening for COVID-19; G47.10 Hypersomnia, unspecified; R06.83 Snoring; I10 Essential (primary) hypertension; R40.0 Somnolence | CPT/HCPCS: 95810; U0003 ==

== ENCOUNTER 2021-04-06 00:58 | Emergency (ER) | payer MEDICARE, MEDICAID, SELFPAY ==
[2021-04-06 01:00] VITALS: BP 129/95; PULSE 104; RESP 18; TEMP 37.1; O2SAT 97; BMI 30.4
--- NOTE | 2021-04-06 01:16 | XR_ITS ---
PROCEDURE INFORMATION: Exam: XR Chest Exam date and time: 04/06/2021 1:16 AM Age: 45 years old Clinical indication: Other: Arrythmias; Prior surgery; Surgery date: 6+ months; Surgery type: Loop recorder; Additional info: Arrhythmias TECHNIQUE: Imaging protocol: XR of the chest. Views: 2 views. COMPARISON: CR XR CHEST AP 11/11/2019 1:22 PM FINDINGS: Tubes, catheters and devices: Implantable loop recorder in the anterior left chest wall. Lungs: Unremarkable. No consolidation. Pleural spaces: No pleural effusion. No pneumothorax. Heart/Mediastinum: Normal heart size. Mild aortic atherosclerosis. Calcified left hilar lymph nodes. Bones/joints: Unremarkable. IMPRESSION: No acute cardiopulmonary finding.
[2021-04-06 01:39] LABS: Basophils # 0.1 K/mm3 (0-0.2); Basophils % 0.5 % (0.1-2.0); Eosinophils # 0.2 K/mm3 (0.0-0.4); Eosinophils % 2.3 % (0.1-12.0); Hematocrit 37.5 % (37.0-47.0); Hemoglobin 12.6 g/dL (12.2-16.2); Lymphocytes # 2.4 K/mm3 (0.7-4.5); Lymphocytes % 24.8 % (10-50); Mean Corpuscular HGB Conc 33.7 g/dL (31.8-35.4); Mean Corpuscular Hemoglobin 27.8 pg (27.0-31.2); Mean Corpuscular Volume 82.6 fl (81-99); Mean Platelet Volume 8.3 fl (7.4-10.4); Monocytes # 0.6 K/mm3 (0.1-1.0); Monocytes % 5.9 % (1.7-9.3); Neutrophils # 6.4 K/mm3 (1.8-7.8); Neutrophils % 66.4 % (37.0-80.0); Platelet Count 303 K/mm3 (142-424); Red Blood Count 4.54 M/mm3 (4.20-5.40); Red Cell Distribution Width 15.3 % (11.5-17.5); White Blood Count 9.6 K/mm3 (4.8-10.8)
[2021-04-06 01:46] LABS: Alanine Aminotransferase 20 U/L (12-78); Albumin Level 4.1 g/dl (3.5-5.0); Alkaline Phosphatase 85 U/L (38-126); Anion Gap 11.6 mEq/L (5-15); Aspartate Amino Transferase 26 U/L (14-36); Bilirubin,Direct 0.4 mg/dl (0.0-0.4); Bilirubin,Indirect 0.5 mg/dL (0.0-0.9); Bilirubin,Total 0.9 mg/dl (0.2-1.3); Bilirubin,Unconjugated 0.4 mg/dL (0.0-1.1); Blood Urea Nitrogen 13 mg/dl (7-17); Calcium 8.9 mg/dl (8.4-10.2); Carbon Dioxide 23 mmol/L (22.0-30.0); Chloride 105 mmol/L (98-107); Creatinine Clearance Estimated 109 mL/min (50-200); Estimated Glomerular Filt Rate 78 ml/min (>60); GFR (African American) 94 ML/MIN (>60); Glucose 90 mg/dl (74-100); Potassium 3.6 mmoL/L (3.5-5.1); Sodium 136 mmol/L (136-145); Total Protein,Serum 6.9 g/dl (6.3-8.2)
[2021-04-06 01:51] LABS: C-Reactive Protein 8.9 mg/L (0-4)
[2021-04-06 02:01] LABS: Troponin I < 0.01 ng/ml (0.00-0.034)
[2021-04-06 02:02] LABS: Erythrocyte Sedimentation Rate 23 mm/hr (0-20)
[2021-04-06 02:03] LABS: Procalcitonin 0.039 ng/mL (0.0-2.0); T4 (Thyroxine) 11.5 ug/dl (5.53-11.0)
[2021-04-06 02:17] LABS: Thyroid Stimulating Hormone 2.06 uIU/mL (0.465-4.68)
--- NOTE | 2021-04-06 02:34 | HMH.EDARPALP ---
ED Disposition Clinical Impression: SVT (supraventricular tachycardia) Disposition: Home, Self-Care Condition on Discharge: Good Instructions: Paroxysmal Supraventricular Tachycardia Additional Instructions: call card this am Referrals: Selvin Hinton MD [Primary Care Provider] - - Critical Care Critical Care Time: No Attestation: On 04/06/21, the high probability of a clinically significant, sudden or life threatening deterioration of the following system(s) required my full and direct attention, intervention and personal management. The time I documented below is in addition to time spent performing reported procedures but includes the following listed in this critical care notation. Medical Decision Making - Medical Records Medical records reviewed: Yes: I reviewed the patient's medical records. - Ezequiel Inquiry Pt receiving controlled substance: No Vital Signs: 04/06/21 01:00 Temperature 98.8 F Temperature Source Oral Pulse Rate [Right] 104 H Respiratory Rate 18 Blood Pressure [Right Arm] 129/95 H Blood Pressure Mean [Right Arm] 106 Blood Pressure Source [Right Arm] Automatic Cuff Blood Pressure Position [Right Arm] Sitting 02 Sat by Pulse Oximetry 97 Oxygen Delivery Method Room Air - Lab Data Lab results reviewed: Yes: I reviewed the patient's lab results. Lab Results 04/06/21 01:10: WBC 9.6, RBC 4.54, Hgb 12.6, Hct 37.5, MCV 82.6, MCH 27.8, MCHC 33.7, RDW 15.3, Plt Count 303, MPV 8.3, Neut % (Auto) 66.4, Lymph % (Auto) 24.8, [place] % (Auto) 5.9, Eos % (Auto) 2.3, Baso % (Auto) 0.5, Neut # (Auto) 6.4, Lymph # (Auto) 2.4, [place] # (Auto) 0.6, Eos # (Auto) 0.2, Baso # (Auto) 0.1, ESR 23 H 04/06/21 01:10: Sodium 136, Potassium 3.6, Chloride 105, Carbon Dioxide 23, Anion Gap 11.6, BUN 13, Creatinine 0.80, Estimated Creat Clear 109, Estimated GFR 78, Est GFR ( Amer) 94, Glucose 90, Calcium 8.9, Total Bilirubin 0.9, Direct Bilirubin 0.4, Conjugated Bilirubin 0.0, Indirect Bilirubin 0.5, Unconjugated Bilirubin 0.4, AST 26, ALT 20, Alkaline Phosphatase 85, Troponin I < 0.01, C-Reactive Protein 8.9 H, Total Protein 6.9, Albumin 4.1, Procalcitonin 0.039, TSH 2.06, Thyroxine (T4) 11.5 H Result diagrams: 04/06/21 01:10 04/06/21 01:10 Orders (Tests/Meds): ED MEDICATIONS Generic Name Dose Route Start Last Admin Trade Name Lluvia PRN Reason Stop Dose Admin Sodium Chloride 1,000 mls @ 999 mls/hr 04/06/21 01:30 04/06/21 01:31 Sod Chlor 0.9% 1000ml Bag IV 04/06/21 02:30 999 mls/hr .Q1H1M SANDY Administration ORDERS Category Date Time Status XR chest 2V Stat Exams 04/06/21 01:16 Taken Troponin I Q3H Lab 04/06/21 04:30 Ordered Troponin I Q3H Lab 04/06/21 07:30 Ordered - Radiology Data #1 Image(s): Chest Image Reviewed: Yes I reviewed the patient's radiology image Preliminary Findings: Normal/NAD - ECG Data Tracing #1 Arrhythmias present: sinus tach Ischemic changes: non-specific ST-T wave changes - JACKSON Score for Non-Stemi Age of Patient: 40-49 years old Heart Rate: 90-109 bpm Systolic Blood Pressure: 120-139 mmhg Serum Creatinine: 0.80-1.19 mg/dl CHF Killip Class: I-No CHF Other Risk Factors: None Non-Stemi Risk Score: 81 Arrhythmia/Palpitations HPI - General Chief Complaint: Arrhythmia/Palpitations Stated Complaint: SVT Time Seen by Provider: 04/06/21 02:00 Mode of Arrival: EMS Source of Information: Patient, EMS, Medical Record Limitations: No Limitations - History of Present Illness HPI narrative: has known svt and has loop recorder and was given 6 mg adenosine by ems and converted pt MD complaint: heart racing Onset (ago): hour(s) Duration: now resolved Severity: moderate Arrhythmia history: SVT Associated symptoms: denies other symptoms Treatments prior to arrival: adenosine - Related Data Home Medications Medication Instructions Recorded Confirmed albuterol 90 mcg/actuation aerosol See Rx Instructions INHALATION
[2021-04-06 02:53] VITALS: BP 124/78; PULSE 101; RESP 18; TEMP 37.1; O2SAT 97
== END 2021-04-06 02:56 | disposition home or self-care (01) ==
PROVIDERS: Emergency Provider Emergency Medicine; PCP Emergency Medicine
DX: I47.1 Supraventricular tachycardia (principal); I10 Essential (primary) hypertension; E78.5 Hyperlipidemia, unspecified; F41.9 Anxiety disorder, unspecified; F17.210 Nicotine dependence, cigarettes, uncomplicated; Z79.899 Other long term (current) drug therapy
CPT/HCPCS: 71046; 80048; 80076; 84145; 84436; 84443; 84484; 85025; 85651; 86140; 93005; 96365; 99282; 99283

== ENCOUNTER 2021-04-29 09:53 | Emergency (ER) | payer MEDICARE, MEDICAID, SELFPAY ==
--- NOTE | 2021-04-29 09:53 | ECG_ITS ---
APPROVED REPORT Exam: Resting ECG HR:106 bpm ECG Measurements Heart Rate 106 AXES NM 138 P 55 QRSd 84 QRS 57 QT 372 T 71 QTc 494 Conclusion Sinus tachycardia Possible Left atrial enlargement Borderline ECG Electronically signed by : Chance Hardwick MD 05/01/2021 11:40:21
[2021-04-29 09:58] VITALS: BP 149/93; PULSE 102; RESP 16; TEMP 37; O2SAT 98; BMI 30.9
--- NOTE | 2021-04-29 09:58 | HMH.EDGENADL ---
ED Disposition Clinical Impression: Hypertensive urgency, Tachycardia Disposition: Home, Self-Care Condition on Discharge: Good Referrals: Provider,Referral, [Referring] - 3 days Time of Disposition: 12:27 - Critical Care Critical Care Time: No Attestation: On , the high probability of a clinically significant, sudden or life threatening deterioration of the following system(s) required my full and direct attention, intervention and personal management. The time I documented below is in addition to time spent performing reported procedures but includes the following listed in this critical care notation. Medical Decision Making - Ezequiel Inquiry Pt receiving controlled substance: No Vital Signs: 04/29/21 09:58 04/29/21 10:30 04/29/21 11:40 Temperature 98.6 F Temperature Source Oral Pulse Rate 101 H 95 H Pulse Rate [Right Radial] 102 H Respiratory Rate 16 22 18 Blood Pressure 139/97 H 160/113 H Blood Pressure [Right Arm] 149/93 H Blood Pressure Mean 109 127 Blood Pressure Mean [Right Arm] 111 Blood Pressure Source [Right Arm] Automatic Cuff Blood Pressure Position [Right Arm] Sitting 02 Sat by Pulse Oximetry 98 97 Oxygen Delivery Method Room Air 04/29/21 12:00 Temperature Temperature Source Pulse Rate 98 H Pulse Rate [Right Radial] Respiratory Rate 16 Blood Pressure 135/117 H Blood Pressure [Right Arm] Blood Pressure Mean 122 Blood Pressure Mean [Right Arm] Blood Pressure Source [Right Arm] Blood Pressure Position [Right Arm] 02 Sat by Pulse Oximetry Oxygen Delivery Method - Lab Data Lab Results 04/29/21 10:13: WBC 22.8 H*, RBC 4.87, Hgb 13.7, Hct 40.8, MCV 83.8, MCH 28.2, MCHC 33.6, RDW 15.8, Plt Count 452 H, MPV 7.4, Neut % (Auto) 89.2 H, Lymph % (Auto) 7.1 L, Hitchcock % (Auto) 3.3, Eos % (Auto) 0.1, Baso % (Auto) 0.2, Neut # (Auto) 20.4 H, Lymph # (Auto) 1.6, [place] # (Auto) 0.8, Eos # (Auto) 0.0, Baso # (Auto) 0.0, Total Counted 100, Neutrophils % (Manual) 84 H, Band Neutrophils % 1.0, Lymphocytes % (Manual) 11, Monocytes % (Manual) 3, Metamyelocytes % 1.0, Platelet Estimate Normal, RBC Morphology Normal 04/29/21 10:13: Sodium 138, Potassium 3.6, Chloride 103, Carbon Dioxide 24, Anion Gap 14.6, BUN 8, Creatinine 0.70, Estimated Creat Clear 127, Estimated GFR 90, Est GFR ( Amer) 109, Glucose 80, Calcium 9.8, Total Bilirubin 0.7, AST 26, ALT 20, Alkaline Phosphatase 104, Troponin I < 0.01, Total Protein 8.3 H, Albumin 4.9, Globulin 3.4 H, Albumin/Globulin Ratio 1.4 Result diagrams: 04/29/21 10:13 04/29/21 10:13 Orders (Tests/Meds): ED MEDICATIONS Discontinued Medications Generic Name Dose Route Start Last Admin Trade Name Freq PRN Reason Stop Dose Admin Ibuprofen 600 mg 04/29/21 12:02 04/29/21 12:02 Ibuprofen 600 Mg Tablet PO 04/29/21 12:03 600 mg ONCE ONE Administration Metoprolol Tartrate 50 mg 04/29/21 11:56 04/29/21 11:58 Metoprolol Tartrate 50mg Tablet PO 04/29/21 11:57 50 mg ONCE ONE Administration ORDERS Category Date Time Status Troponin I Q3H Lab 04/29/21 13:00 Ordered Troponin I Q3H Lab 04/29/21 16:00 Ordered UA [Urinalysis and Microscopic] Stat Lab 04/29/21 10:47 Ordered - ECG Data Tracing #1 I reviewed this ECG and interpreted as documented below: Sinus tachycardia, 106 bpm, no ST elevation or depression, normal intervals, no ectopy. ECG initial impression date: 04/29/21 ECG initial impression time: 09:57 - JACKSON Score for Non-Stemi Age of Patient: 40-49 years old Heart Rate: 90-109 bpm Systolic Blood Pressure: 140-159 mmHg Serum Creatinine: 0.40-0.79 mg/dl CHF Killip Class: I-No CHF Other Risk Factors: None Non-Stemi Risk Score: 68 Medical Decision Narrative: 45yo F evaluated for tachycardia. Patient is in no acute distress on initial evaluation. She ambulates through the emergency department without difficulty. EKG is obtained on arrival demonstrates sinus tachycardia. Patient is
[2021-04-29 10:24] LABS: Basophils % 0.2 % (0.1-2.0); Eosinophils % 0.1 % (0.1-12.0); Hematocrit 40.8 % (37.0-47.0); Hemoglobin 13.7 g/dL (12.2-16.2); Lymphocytes # 1.6 K/mm3 (0.7-4.5); Lymphocytes % 7.1 % (10-50); Mean Corpuscular HGB Conc 33.6 g/dL (31.8-35.4); Mean Corpuscular Hemoglobin 28.2 pg (27.0-31.2); Mean Corpuscular Volume 83.8 fl (81-99); Mean Platelet Volume 7.4 fl (7.4-10.4); Monocytes # 0.8 K/mm3 (0.1-1.0); Monocytes % 3.3 % (1.7-9.3); Neutrophils # 20.4 K/mm3 (1.8-7.8); Neutrophils % 89.2 % (37.0-80.0); Platelet Count 452 K/mm3 (142-424); Red Blood Count 4.87 M/mm3 (4.20-5.40); Red Cell Distribution Width 15.8 % (11.5-17.5); White Blood Count 22.8 K/mm3 (4.8-10.8)
[2021-04-29 10:26] LABS: Chloride 103 mmol/L (98-107); Potassium 3.6 mmoL/L (3.5-5.1); Sodium 138 mmol/L (136-145)
[2021-04-29 10:28] LABS: Blood Urea Nitrogen 8 mg/dl (7-17); Creatinine Clearance Estimated 127 mL/min (50-200); Estimated Glomerular Filt Rate 90 ml/min (>60); GFR (African American) 109 ML/MIN (>60); MANUAL DIFFERENTIAL MANUAL DIFFERENTIAL (MANUAL DIFF)
[2021-04-29 10:29] LABS: Alanine Aminotransferase 20 U/L (12-78); Albumin Level 4.9 g/dl (3.5-5.0); Albumin/Globulin Ratio 1.4 (1.1-1.8); Alkaline Phosphatase 104 U/L (38-126); Anion Gap 14.6 mEq/L (5-15); Aspartate Amino Transferase 26 U/L (14-36); Bilirubin,Total 0.7 mg/dl (0.2-1.3); Calcium 9.8 mg/dl (8.4-10.2); Carbon Dioxide 24 mmol/L (22.0-30.0); Globulin 3.4 g/dL (1.3-3.2); Glucose 80 mg/dl (74-100); Total Protein,Serum 8.3 g/dl (6.3-8.2)
[2021-04-29 10:30] VITALS: BP 139/97; PULSE 101; RESP 22; O2SAT 97
--- NOTE | 2021-04-29 10:34 | XR_ITS ---
PROCEDURE: XR CHEST 2V CLINICAL HISTORY: cp Chest pain COMPARISON: CT CHESTW CT chest w con from 01/05/2018 CR CXR1VP XR chest portable from 05/21/2018 CR XR CHEST AP from 11/11/2019 CR XR CHEST 2V from 04/06/2021 FINDINGS: The cardiomediastinal silhouette and pulmonary vascularity are within normal limits. Loop recorder device is present along the left chest medially anteriorly Lungs are clear. No acute bony findings. Monitor lead artifact noted. IMPRESSION: No acute findings. Dictated by: Jasvir Ayala MD 04/29/2021 11:12 Jasvir Ayala MD in [place] 04/29/2021 11:12
[2021-04-29 10:41] LABS: Troponin I < 0.01 ng/ml (0.00-0.034)
[2021-04-29 10:42] LABS: Lymphocytes % 11 % (10-50); Monocytes % 3 % (2-9); Neutrophils % 84 % (42-76); Platelet Estimate Normal; RBC Morphology Normal; Total Cells Counted 100
--- NOTE | 2021-04-29 10:50 | PC.NURSE ---
THEO MARTINEZ spoke with jesse archer for consult on pt
--- NOTE | 2021-04-29 10:56 | PC.NURSE ---
pt to radiology
--- NOTE | 2021-04-29 11:29 | PC.NURSE ---
WHIT FROM CARDIOLOGY HERE TO SEE PT
[2021-04-29 11:40] VITALS: BP 160/113; PULSE 95; RESP 18
--- NOTE | 2021-04-29 11:45 | PC.NURSE ---
WHIT WANTS PT TO HAVE METOPROLOL 50MG IF B/P COMES DOWN SHE IS GOOD TO BE D/C
--- NOTE | 2021-04-29 11:54 | HMH.CNCARD ---
History of Present Illness Consult date: 04/29/21 Requesting physician: Selvin Hinton Chief complaint: Tachycardia Additional 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:: 1. History of SVT, on beta-jose f therapy A. Workup 2018 Chest X-ray no acute finding. CT of chest was negative. Stress test: IMPRESSION: No scintigraphic evidence of Lexiscan-induced myocardial ischemia normal ejection fraction normal wall motion ECHO: CONCLUSION: 1. Normal left ventricular size, preserved left ventricular systolic function, visually estimated ejection fraction 55% with no obvious regional wall motion abnormality, diastolic parameters are within normal range. 2. Mild mitral and tricuspid regurgitation 3. No significant pericardial effusion noted 2. Neuroretinitis, per patient, treated by Dr. Osmani Christensen in [place], [place]. 3. Tobacco use History of present illness: 45yo F presents the emergency department secondary to rapid heart rate. Patient reports a history of SVT and she believes A. fib, though A. fib has never been observed on EKG or telemetry. She states this is been ongoing problem and she was unable to rest last night because her heart was racing. She went to the EMS station near her house and obtained a rhythm strip. She was told she was not in SVT, but directed to the emergency department. She actually refused EMS ride and drove herself. In route, she called her PCP office stating she needed to be admitted for SVT. Her PCP, Dr. Hinton, called the emergency department prior to the patient being registered or placed in a room and requested to have cardiology evaluate the patient in the emergency department. She reports taking her medications as directed. Patient continues to smoke. The above per ER MD Dr. Arauz. Events as noted above are confirmed. Patient was in the emergency department last month for SVT which was documented and treated with adenosine. Her loop recorder did record the onset and offset of the SVT event. Since then there have been no events on her loop recorder interrogation. I discussed this with the patient that she may be having some sinus tachycardia up to 170 bpm that are not recorded by the loop recorder. I have readjusted her parameters to include events of 150 bpm for higher. In the interim we will increase her metoprolol succinate to 50 mg in the morning and metoprolol succinate 100 mg in the evening. Patient has recently been undergoing IV steroid treatment for neuro retinitis (she is followed by Dr. Osmani Christensen in [facility]. This may have instigated her recent increase in palpitations. Patient is now at the point that she wishes to see a EP amr physician for definitive treatment of her SVT. She was previously referred to Dr. Valladares at [facility] in [facility] but did not follow through due to Covid. [facility] History 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: Reports:: Anxiety, Asthma, Hyperlipidemia, Hypertension, Migraine, Palpitations Denies:: Cancer, Diabetes Mellitus Type 1, Diabetes Mellitus Type 2, Internal Pacemaker, MRSA, Seizures *Have you ever received a pneumonia vaccine?: No *Have you received a flu vaccine this season?: No Other 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: Denies: Blood Transfusion Reaction Laterality Cases: Left: ACL Repair, Other, Bilateral: Tonsillectomy Other Surgeries: Yes: , Diagnostic Lap, Tubal Ligation, Other. No: Pacemaker Amputation: No Fractures: No - *Social History Smoking Status: Current every day smoker Tobacco Type: cigarettes # Packs/Day (cigarettes): 1 Alcohol Intake: never Alcohol Intake Frequency:: holidays/special occasions only Substance Use Type: denies use *Occupational Status:: unemployed Housing: house *Travel in the last 8 weeks: Inside the [facility] - Psychiatric History Pschychiatric History:: Reports:: Anxiety Family Hx:: Diabetes, Heart Attack Meds Home Medications Medication Instructions Recorded Confirmed Type albuterol 90 mcg/actuation aerosol See Rx Instructions
[2021-04-29 12:00] VITALS: BP 135/117; PULSE 98; RESP 16
--- NOTE | 2021-04-29 12:05 | PC.NURSE ---
PT REQUESTING AN IBUPROFEN FOR A H/A
--- NOTE | 2021-04-29 12:25 | PC.NURSE ---
PT FEELING BETTER AND READY TO GO HOME
[2021-04-29 12:32] VITALS: BP 142/96; PULSE 84; RESP 16; TEMP 37; O2SAT 98
== END 2021-04-29 12:32 | disposition home or self-care (01) ==
PROVIDERS: Emergency Provider Family Medicine; PCP Emergency Medicine
DX: I16.0 Hypertensive urgency (principal); R00.2 Palpitations; E78.5 Hyperlipidemia, unspecified; F17.210 Nicotine dependence, cigarettes, uncomplicated; Z79.899 Other long term (current) drug therapy
CPT/HCPCS: 71046; 80053; 84484; 85007; 85025; 93005; 99284

== ENCOUNTER → 2021-06-04 17:12 | Outpatient (CLI) | payer MEDICARE, MEDICAID, SELFPAY ==
[2021-06-04 21:27] LABS: Basophils # 0.1 K/mm3 (0-0.2); Basophils % 0.6 % (0.1-2.0); Eosinophils # 0.2 K/mm3 (0.0-0.4); Eosinophils % 1.8 % (0.1-12.0); Hematocrit 44.6 % (37.0-47.0); Lymphocytes # 2.8 K/mm3 (0.7-4.5); Mean Corpuscular HGB Conc 31.4 g/dL (31.8-35.4); Mean Corpuscular Hemoglobin 28.7 pg (27.0-31.2); Mean Corpuscular Volume 91.5 fl (81-99); Mean Platelet Volume 9.8 fl (7.4-10.4); Monocytes # 0.7 K/mm3 (0.1-1.0); Monocytes % 5.7 % (1.7-9.3); Neutrophils % 69.9 % (37.0-80.0); Platelet Count 411 K/mm3 (142-424); Red Blood Count 4.88 M/mm3 (4.20-5.40); Red Cell Distribution Width 15.8 % (11.5-17.5); White Blood Count 12.8 K/mm3 (4.8-10.8)
[2021-06-04 21:41] LABS: Anion Gap 17.5 mEq/L (5-15); Blood Urea Nitrogen 10 mg/dl (7-17); Calcium 9.3 mg/dl (8.4-10.2); Carbon Dioxide 24 mmol/L (22.0-30.0); Chloride 103 mmol/L (98-107); Estimated Glomerular Filt Rate 90 ml/min (>60); GFR (African American) 109 ML/MIN (>60); Glucose 51 mg/dl (74-100); Potassium 4.5 mmoL/L (3.5-5.1); Sodium 140 mmol/L (136-145)
== END ==
PROVIDERS: Visit Provider Internal Medicine Clinical Cardiac Electrophysiology
DX: Z01.818 Encounter for other preprocedural examination (principal); Z11.52 Encounter for screening for COVID-19
CPT/HCPCS: 36415; 80048; 85025; U0003

== ENCOUNTER 2021-08-18 12:51 | Emergency (ER) | payer MEDICARE, MEDICAID, SELFPAY ==
[2021-08-18 14:21] VITALS: BP 138/94; PULSE 87; RESP 19; TEMP 36.9; O2SAT 99; BMI 35.4
--- NOTE | 2021-08-18 14:45 | HMH.EDUTC ---
[facility] Disposition Clinical Impression: Bronchitis Disposition: Home, Self-Care Condition on Discharge: Good Instructions: Acute Bronchitis, DI for Sinusitis Additional Instructions: *Monitor Temp, Over the counter Motrin or Tylenol as directed/as needed Tylenol every 4 hours and Motrin every 6 hours (as long as your family doctor has told you that you can take it) for fever or pain. and straight to ER if unable to lower temp less than 101.0 after medication given *Warm salt water gargles may help to soothe the throat *Throat Lozenges *Warm fluids like tea with honey may help to soothe the throat *Sleep elevated *Humidifier/Vaporizer Follow up IMMEDIATELY for new or worsening symptoms or no Noticeable improvement over the next 48-72 hours. 911 for difficulty breathing or swallowing You were tested for today for COVID19 your test result should be back in the next 24-48 hours, you may Check your results on the [facility] health portal If you have trouble logging on there is number on there for you to call for help You was given a handout with instructions for Self Quarantine and Self isolation for while you wait on test results and what to do if they are positive If you are positive the Health Dept will be contacting you also Make sure to take your Vitamins Vit. C Vit D and Zinc if you can take them Prescriptions: Azithromycin [Z-Paul 250mg Tab] 250 mg PO DIRECTED #6 tab Transmission Status: Pending to [id number] Referrals: Selvin Hinton MD [Primary Care Provider] - As needed Forms: Work/School Release Medical Decision Making - Ezequiel Inquiry Pt receiving controlled substance: No Ezequiel was queried for this patient: No Vital Signs: 08/18/21 14:21 Temperature 98.4 F Temperature Source Oral Pulse Rate [Left] 87 Respiratory Rate 19 Blood Pressure [Right Arm] 138/94 H Blood Pressure Mean [Right Arm] 108 02 Sat by Pulse Oximetry 99 Orders (Tests/Meds): ORDERS Category Date Time Status Covid-19 Nasal PCR ([facility]) Routine Lab 08/18/21 14:06 Received Medical Decision Narrative: Patient state that she has taken azithromycin without complications or reactions [facility] HPI - General Stated complaint: fever, sore throat, cough, soa, congestion Time Seen by Provider: 08/18/21 14:49 Mode of Arrival: Ambulatory Source of Information: Patient Limitations: No Limitations Description of Symptoms (Recalled from Triage Doc. by RN): pt c/o cough, congestion/drainage, chills, LORENZO and chest congestion. ongoing since yesterday. HEENT Symptoms (Recalled from RN notes): Yes (sinus congestion/drainage and LORENZO) Resp Symptoms (Recalled from RN notes): Yes (cough and chest congestion) Skin Symptoms (Recalled from RN notes): No MS Symptoms (Recalled from RN notes): No Functional Status (Recalled from RN notes): wnl - History of Present Illness Provider Complaint: Patient states she has been having sinus congestion, cough, scratchy throat headache, body aches and chills States that she hasnt been exposed to COVID that she is aware of States that today she was feeling worse so she came in to get checked - Related Data Home Medications Medication Instructions Recorded Confirmed albuterol 90 mcg/actuation aerosol See Rx Instructions INHALATION 10/14/17 06/05/21 inhaler Q6HP PRN lisinopriL [Prinivil 10mg Tablet] 10 mg PO DAILY 07/14/20 06/05/21 valacyclovir 1 gram tablet 1,000 mg PO BID PRN tab 12/30/20 06/05/21 venlafaxine 150 mg 150 mg PO DAILY cap 05/05/21 06/05/21 capsule,extended release 24 hr venlafaxine 75 mg capsule,extended 75 mg PO DAILY cap 05/05/21 06/05/21 release 24 hr Previous Rx's Medication Instructions Recorded pantoprazole 40 mg tablet,delayed 40 mg PO DAILY #30 tab 01/20/21 release cholecalciferol (vitamin D3) 1,250 1,250 mcg PO WEEKLY #10 cap 01/23/21 mcg (50,000 unit) capsule cholecalciferol (vitamin D3) 25 25 mcg PO DAILY #90 cap 01/23/21 mcg (1,000 unit) capsule
[2021-08-18 15:00] VITALS: BP 138/94; PULSE 87; RESP 19; TEMP 36.9
== END 2021-08-18 15:07 | disposition home or self-care (01) ==
PROVIDERS: Emergency Provider Nurse Practitioner; PCP Emergency Medicine
DX: J20.9 Acute bronchitis, unspecified (principal); I10 Essential (primary) hypertension; E78.5 Hyperlipidemia, unspecified; Z20.822 Contact with and (suspected) exposure to COVID-19
CPT/HCPCS: G0463; 99202; C9803; U0003; U0005

== ENCOUNTER 2022-02-09 18:45 | Emergency (ER) | payer MEDICARE, MEDICAID, SELFPAY ==
[2022-02-09 19:55] VITALS: BP 129/84; PULSE 86; RESP 19; TEMP 37.1; O2SAT 96; BMI 34.7
[2022-02-09 19:55] LABS: Strep Scrn Group A (Rapid) Negative (Negative)
--- NOTE | 2022-02-09 19:55 | HMH.EDUTC ---
[facility] [place] Clinical Impression: Bronchitis Otitis media Qualifiers: Otitis media type: suppurative Chronicity: acute Laterality: bilateral Recurrence: non-recurrent Spontaneous tympanic membrane rupture: without spontaneous rupture Qualified Code(s): H66.003 - Acute suppurative otitis media without spontaneous rupture of ear drum, bilateral Pharyngitis Qualifiers: Pharyngitis/tonsillitis etiology: unspecified etiology Qualified Code(s): J02.9 - Acute pharyngitis, unspecified Disposition: Home, Self-Care Condition on Discharge: Good Instructions: DI for Pharyngitis/Tonsillopharyngitis -- Adult, DI for Acute Bronchitis Additional Instructions: Drink plenty of fluids. Take tylenol or ibuprofen for pain or fever. Take the medications as directed. Follow up with your regular doctor. GO TO THE ER FOR ANY WORSENING SYMPTOMS Throw your tooth brush away and get a new one. Don't start the oral steroids until tomorrow, since you had the shot here today. The cough medication (promethazine dm) will make you drowsy, so don't drive or operate heavy machinery after taking it. Prescriptions: Promethazine/Dextromethorphan [Promethazine-Dm Syrup] 5 ml PO Q6HP PRN #240 ml PRN Reason: Cough Transmission Status: Received by [address] [facility] Amoxicillin/Potassium Clav [Amox-Clav 875-125 mg Tablet] 1 tab PO BID #20 tab Transmission Status: Received by [facility] methylPREDNISolone [Medrol] 4 mg PO DIRECTED 6 Days #21 packet Transmission Status: Received by [facility] guaiFENesin [Mucinex 600mg tablet] 1 - 2 tab PO BIDP PRN #30 tab PRN Reason: Congestion Transmission Status: Received by [facility] Referrals: Selvin Hinton MD [Primary Care Provider] - Time of Disposition: 20:35 Medical Decision Making - Medical Records Medical records reviewed: No: I reviewed the patient's medical records. - Ezequiel Inquiry Pt receiving controlled substance: No Vital Signs: 02/09/22 19:55 02/09/22 20:36 Temperature 98.8 F 98.8 F Temperature Source Oral Pulse Rate 86 Pulse Rate [Left Radial] 86 Respiratory Rate 19 19 Blood Pressure 129/84 Blood Pressure [Right Arm] 129/84 Blood Pressure Mean [Right Arm] 99 02 Sat by Pulse Oximetry 96 - Lab Data Lab results reviewed: Yes: I reviewed the patient's lab results. Lab Results 02/09/22 19:34: Group A Strep Rapid Negative 02/09/22 20:06: Influenza Type A Ag Negative, Influenza Type B Ag Negative Orders (Tests/Meds): ED MEDICATIONS Discontinued Medications Generic Name Dose Route Start Last Admin Trade Name Lluvia PRN Reason Stop Dose Admin Ceftriaxone Sodium 1 gm 02/09/22 20:11 02/09/22 20:23 Ceftriaxone 1gm Vial IM 02/09/22 20:12 1 gm ONCE ONE Administration Dexamethasone Sodium Phosphate 8 mg 02/09/22 20:11 02/09/22 20:25 Dexamethasone 4mg/Ml 1ml Vial IM 02/09/22 20:12 8 mg ONCE ONE Administration Lidocaine HCl 0 ml 02/09/22 20:11 02/09/22 20:24 Lidocaine 1% 5ml Pf Vial IM 02/09/22 20:12 2 ml ONCE ONE Administration ORDERS Category Date Time Status Covid-19 Nasal PCR ([facility]) Routine Lab 02/09/22 20:35 Ordered Strep Screen Confirmation Stat Micro 02/09/22 19:34 Received [facility] [place] - General Stated complaint: sore throa cough ear Time Seen by Provider: 02/09/22 19:56 - History of Present Illness Provider Complaint: She c/o chest congestion, sinus congestion, nonproductive cough, body aches and chilling for the past 3 days. - Related Data Home Medications Medication Instructions Recorded Confirmed valacyclovir 1 gram tablet 1,000 mg PO BID PRN tab 12/30/20 01/15/22 venlafaxine 150 mg 150 mg PO DAILY cap 05/05/21 01/15/22 capsule,extended release 24 hr Previous Rx's Medication Instructions Recorded cholecalciferol (vitamin D3) 25 25 mcg PO DAILY #90 cap 01/23/21 mcg (1,000 unit) capsule atorvastatin 10 mg tablet See Rx
[2022-02-09 20:17] LABS: UTC Influenza A Antigen Negative (Negative); UTC Influenza B Antigen Negative (Negative)
[2022-02-09 20:36] VITALS: BP 129/84; PULSE 86; RESP 19; TEMP 37.1
== END 2022-02-09 20:38 | disposition home or self-care (01) ==
PROVIDERS: Emergency Provider Nurse Practitioner Family; PCP Emergency Medicine
DX: J40 Bronchitis, not specified as acute or chronic (principal); H66.003 Acute suppurative otitis media without spontaneous rupture of ear drum, bilateral; J02.9 Acute pharyngitis, unspecified
CPT/HCPCS: 87430; 87804; 96372; 99212; G0463; J0696

== ENCOUNTER → 2022-02-25 10:09 | Outpatient (CLI) | payer MEDICARE, MEDICAID, SELFPAY ==
[2022-02-25 10:30] LABS: Basophils # 0.2 K/mm3 (0-0.2); Basophils % 1.7 % (0.1-2.0); Eosinophils # 0.2 K/mm3 (0.0-0.4); Eosinophils % 2.4 % (0.1-12.0); Hematocrit 35.6 % (37.0-47.0); Hemoglobin 11.7 g/dL (12.2-16.2); Lymphocytes # 2.3 K/mm3 (0.7-4.5); Lymphocytes % 25.7 % (10-50); Mean Corpuscular HGB Conc 32.7 g/dL (31.8-35.4); Mean Corpuscular Hemoglobin 26.9 pg (27.0-31.2); Mean Corpuscular Volume 82.1 fl (81-99); Mean Platelet Volume 8.6 fl (7.4-10.4); Monocytes # 0.5 K/mm3 (0.1-1.0); Monocytes % 5.6 % (1.7-9.3); Neutrophils # 5.8 K/mm3 (1.8-7.8); Neutrophils % 64.6 % (37.0-80.0); Platelet Count 456 K/mm3 (142-424); Red Blood Count 4.33 M/mm3 (4.20-5.40); Red Cell Distribution Width 16.1 % (11.5-17.5)
[2022-02-25 10:53] LABS: Alanine Aminotransferase 20 U/L (12-78); Albumin Level 3.7 g/dl (3.5-5.0); Albumin/Globulin Ratio 1.5 (1.1-1.8); Alkaline Phosphatase 79 U/L (38-126); Anion Gap 7.9 mEq/L (5-15); Aspartate Amino Transferase 23 U/L (14-36); Bilirubin,Total 0.9 mg/dl (0.2-1.3); Blood Urea Nitrogen 3 mg/dl (7-17); Calcium 8.8 mg/dl (8.4-10.2); Carbon Dioxide 28 mmol/L (22.0-30.0); Chloride 106 mmol/L (98-107); Chol/HDL Ratio 6.1 (1-3.5); Cholesterol 224 mg/dl (140-200); Estimated Glomerular Filt Rate 90 ml/min (>60); GFR (African American) 109 ML/MIN (>60); Globulin 2.5 g/dL (1.3-3.2); Glucose 70 mg/dl (74-100); HDL Cholesterol 37 mg/dl (40-60); Potassium 3.9 mmoL/L (3.5-5.1); Sodium 138 mmol/L (136-145); Total Protein,Serum 6.2 g/dl (6.3-8.2); Triglycerides 208 mg/dl (30-150); VLDL Cholesterol 42 mg/dL (0-40)
[2022-02-25 11:10] LABS: T4 (Thyroxine) 8.6 ug/dl (5.53-11.0)
[2022-02-25 11:11] LABS: 25-OH Vitamin D, Total 44.8 ng/mL (30-100)
== END ==
PROVIDERS: PCP Emergency Medicine; Visit Provider Emergency Medicine
DX: E66.9 Obesity, unspecified (principal); I16.0 Hypertensive urgency; R07.9 Chest pain, unspecified; E55.9 Vitamin D deficiency, unspecified; Z72.0 Tobacco use; Z68.33 Body mass index [BMI] 33.0-33.9, adult
CPT/HCPCS: 36415; 80053; 80061; 82306; 84436; 84443; 85025

== ENCOUNTER → 2022-04-09 14:29 | Outpatient (CLI) | payer MEDICARE, MEDICAID, SELFPAY ==
[2022-04-09 19:16] LABS: Iron 38 ug/dL (37-170)
[2022-04-10 08:13] LABS: FSH 13.2 mIU/mL (.); LH 5.5 mIU/mL (.)
[2022-04-10 10:46] LABS: Progesterone 0.5 ng/mL (.)
[2022-04-13 14:15] LABS: Estrogen 98 pg/mL (.)
== END ==
PROVIDERS: PCP Emergency Medicine; Visit Provider Emergency Medicine
DX: I47.1 Supraventricular tachycardia (principal); R53.83 Other fatigue
CPT/HCPCS: 82672; 83001; 83002; 83540; 84144

== ENCOUNTER 2022-08-23 15:27 | Emergency (ER) | payer MEDICARE, MEDICAID, SELFPAY ==
--- NOTE | 2022-08-23 15:56 | PC.NURSE ---
Pt LWBS. Was going to Dr. Mendoza office to be seen.
[2022-08-23 15:57] VITALS: BP 0/0; PULSE 84; RESP 16; TEMP 36.8; O2SAT 98
== END 2022-08-23 15:58 | disposition left against medical advice (07) ==
LOC: ER 15:53
PROVIDERS: Emergency Provider Emergency Medicine; PCP Emergency Medicine
DX: Z53.21 Procedure and treatment not carried out due to patient leaving prior to being seen by health care provider (principal)

== ENCOUNTER → 2022-08-27 14:30 | Outpatient (CLI) | payer MEDICARE, MEDICAID, SELFPAY ==
--- NOTE | 2022-08-27 14:39 | XR_ITS ---
FINAL REPORT CLINICAL HISTORY: soft tissue mass FINDINGS: Three weight-bearing views of the left foot were obtained. There is no acute fracture or dislocation. There is a tiny plantar spur. The joint spaces are intact. The soft tissues are unremarkable. IMPRESSION: No acute process. Reviewed, Interpreted and Dictated by Joel Goel MD Transcribed by Mike Ventura Authenticated and [facility]
[2022-08-27 19:20] LABS: Adenovirus,PCR Not Detected (NotDetected); Bordetella Pertussis Not Detected (NotDetected); Chlamydophila Pneumoniae, PCR Not Detected (NotDetected); Coronavirus 229E Not Detected (NotDetected); Coronavirus NL63 Not Detected (NotDetected); Coronavirus OC43 Not Detected (NotDetected); Coronovirus HKU1,PCR Not Detected (NotDetected); Human Metapneumovirus Not Detected (NotDetected); Influenza A, PCR Not Detected (NotDetected); Influenza AH1, 2009 Not Detected (NotDetected); Influenza AH1, PCR Not Detected (NotDetected); Influenza AH3,PCR Not Detected (NotDetected); Influenza B, PCR Not Detected (NotDetected); Mycoplasma Pneumoniae, PCR Not Detected (NotDetected); Parainfluenza 1, PCR Not Detected (NotDetected); Parainfluenza 2, PCR Not Detected (NotDetected); Parainfluenza 3, PCR Not Detected (NotDetected); Parainfluenza 4, PCR Not Detected (NotDetected); Respiratory Syncytial Virus Not Detected (NotDetected); Rhinovirus/Enterovirus Not Detected (NotDetected)
[2022-08-28 18:49] LABS: Coronavirus 19, PCR Detected (NotDetected)
== END ==
PROVIDERS: Student in an Organized Health Care Education/Training Program; PCP Emergency Medicine; Visit Provider Podiatrist
DX: M79.89 Other specified soft tissue disorders (principal); J06.9 Acute upper respiratory infection, unspecified; U07.1 COVID-19
CPT/HCPCS: 73630; 87581; 87632; 87798; C9803; U0003; U0005

== ENCOUNTER → 2022-08-27 16:00 | Outpatient (CLI) | payer MEDICARE, MEDICAID, SELFPAY | PROVIDERS: PCP Student in an Organized Health Care Education/Training Program; Visit Provider Student in an Organized Health Care Education/Training Program | DX: R68.89 Other general symptoms and signs (principal) ==

== ENCOUNTER → 2022-09-10 13:18 | Outpatient (CLI) | payer MEDICARE, MEDICAID, SELFPAY ==
--- NOTE | 2022-09-10 13:21 | XR_ITS ---
FINAL REPORT CLINICAL HISTORY: knee pain, pain for months, pt states patella keeps popping out of place FINDINGS: Three views of the right knee reveal no evidence of fracture or dislocation. There is a small calcification medial to the medial femoral condyle. The bony alignment is normal. The joint spaces are preserved. There is no evidence of joint effusion. No localized soft tissue abnormality is identified. IMPRESSION: No acute abnormality identified. Reviewed, Interpreted and Dictated by Mian Agrawal III, MD Transcribed by Manuela Bush Authenticated and [facility]
== END ==
PROVIDERS: PCP Emergency Medicine; Visit Provider Orthopaedic Surgery
DX: M25.561 Pain in right knee (principal)
CPT/HCPCS: 73562

== ENCOUNTER → 2022-09-22 11:01 | Outpatient (CLI) | payer MEDICARE, MEDICAID, SELFPAY ==
--- NOTE | 2022-09-22 11:03 | MM_ITS ---
PROCEDURE INFORMATION: Exam: MG Bilateral Screening 3D Mammography Exam date and time: 09/22/2022 10:53 AM Age: 47 years old Clinical indication: Screening examination TECHNIQUE: Imaging protocol: Bilateral Screening tomosynthesis and 2D mammography including computer-aided detection (CAD) when performed. COMPARISON: 1. MG MM DIG MAMM DX UNILAT RT CAD 09/21/2019 1:35 PM 2. MG MM DIG SCREENING MAMM BI W/CAD 08/29/2019 3:46 PM FINDINGS: MAMMOGRAPHY: Breast composition: There are scattered areas of fibroglandular density. Mass: None. Architectural distortion: None. Calcifications: No suspicious calcifications. Asymmetric density: None. Skin thickening: None. Axillary adenopathy: None. IMPRESSION: No mammographic evidence of malignancy. Annual screening is recommended unless otherwise clinically indicated. ASSESSMENT: BI-RADS Category 1: Negative
== END ==
PROVIDERS: PCP Emergency Medicine; Visit Provider Emergency Medicine
DX: Z12.31 Encounter for screening mammogram for malignant neoplasm of breast (principal)
CPT/HCPCS: 77063; 77067

== ENCOUNTER → 2022-11-03 13:09 | Outpatient (CLI) | payer MEDICARE, MEDICAID, SELFPAY ==
--- NOTE | 2022-11-03 13:30 | XR_ITS ---
FINAL REPORT CLINICAL HISTORY: knee pain FINDINGS: Left knee Three views were obtained. There is no acute fracture or dislocation. The joint spaces appear normal. There are postoperative changes from prior ACL repair. No soft tissue abnormality is identified. IMPRESSION: No acute process. Reviewed, Interpreted and Dictated by Joel Goel MD Transcribed by Huong Roger Authenticated and [facility]
--- NOTE | 2022-11-03 13:59 | MR_ITS ---
FINAL REPORT TECHNIQUE: Multiplanar MR without contrast CLINICAL HISTORY: knee pain right knee pain patient states knee gives out x 3 years FINDINGS: Articular cartilage: Moderate thinning of the articular cartilage of the medial compartment. Grade 2 chondromalacia patella. Marrow signal: Cystic lesions within the lateral tibial plateau extending beyond the cortex into the tibiofibular joint probably due to complex ganglion cyst with intraosseous components. This extends minimally into the adjacent musculature. Subchondral marrow signal changes of the posteromedial and lateral femoral condyles likely related to arthritic disease the and small bone infarcts medially. Joint fluid: Physiologic Menisci: Normal morphology without tear Ligaments: Collateral and cruciate ligaments intact IMPRESSION: 1. No meniscal tear. 2. Small subchondral bone infarct at the posterior aspect of medial femoral condyle. 3. Complex cystic mass centered at the tibiofibular joint with intra and extraosseous component likely representing ganglion cyst. Reviewed, Interpreted and Dictated by López Sequeira MD Transcribed by Manuela Bush Authenticated and [facility]
== END ==
PROVIDERS: PCP Emergency Medicine; Visit Provider Orthopaedic Surgery
DX: M25.561 Pain in right knee (principal); M25.562 Pain in left knee
CPT/HCPCS: 73562; 73721

== ENCOUNTER 2023-04-16 16:56 | Emergency (ER) | payer MEDICARE, MEDICAID, SELFPAY ==
[2023-04-16 17:15] VITALS: BP 141/85; PULSE 76; RESP 19; TEMP 36.7; O2SAT 98; BMI 34.5
--- NOTE | 2023-04-16 17:39 | EXP.UTC ---
Discharge Plan Disposition Patient Disposition: Home, Self-Care Condition: Good Prescriptions Prescriptions: New sulfamethoxazole-trimethoprim [Bactrim DS] 800-160 mg tablet 1 tab PO Q12H Qty: 20 0RF No Action venlafaxine 150 mg capsule,extended release 24hr 150 mg PO DAILY metoprolol succinate [Toprol XL] 100 mg tablet extended release 24 hr 100 mg PO BID Qty: 60 5RF loratadine [Claritin] 10 mg tablet 10 mg PO DAILY Qty: 90 0RF bupropion HCl 150 mg tablet sustained-release 12 hr 150 mg PO BID Qty: 60 2RF Rx Instructions: step two bupropion HCl 75 mg tablet 75 mg PO BID Qty: 60 1RF Rx Instructions: step one fill first clonazepam [Klonopin] 0.5 mg tablet 0.5 mg PO BID Qty: 60 2RF tramadol 50 mg tablet 50 mg PO BID Qty: 60 2RF promethazine-DM 6.25-15 mg/5 mL syrup 5 ml PO Q4-6H PRN (Reason: cough) Qty: 118 0RF cholecalciferol (vitamin D3) 25 mcg (1,000 unit) capsule 25 mcg PO DAILY Qty: 90 2RF albuterol sulfate 90 mcg/actuation HFA aerosol inhaler 2 puff INHALATION Q6H PRN (Reason: shortness of breath or wheezing) Qty: 8.5 2RF cholecalciferol (vitamin D3) 1,250 mcg (50,000 unit) capsule See Rx Instructions .ROUTE .COMPLEX Qty: 10 0RF Dose Instruction: Take 1 capsule by mouth once a week Rx Instructions: Take 1 capsule by mouth once a week atorvastatin 10 mg tablet See Rx Instructions .ROUTE .COMPLEX Qty: 90 0RF Dose Instruction: TAKE 1 TABLET BY MOUTH AT BEDTIME FOR HIGH CHOLESTEROL Rx Instructions: TAKE 1 TABLET BY MOUTH AT BEDTIME FOR HIGH CHOLESTEROL lisinopril 10 mg tablet See Rx Instructions .ROUTE .COMPLEX Qty: 90 0RF Dose Instruction: TAKE 1 TABLET BY MOUTH ONCE DAILY FOR HYPERTENSION Rx Instructions: TAKE 1 TABLET BY MOUTH ONCE DAILY FOR HYPERTENSION Referrals Follow up/Referrals: Ezequiel Olivier [Primary Care Provider] - See instructions Clinical Impressions Clinical Impression: Abscess Instructions Patient Instructions: DI for Skin Abscess Discharge ED Provider: Greg ([facility])Angela [facility] [place] HPI General Stated complaint: poss cyst under right arm Mode of Arrival: Ambulatory Source of Information: Patient Limitations: No Limitations Time Seen by Provider: 04/16/23 17:48 Description of Symptoms (Recalled from Triage Doc. by RN): PATIENT C/O CYST UNDER RIGHT ARMPIT X 3 WEEKS HEENT Symptoms (Recalled from RN notes): No Resp Symptoms (Recalled from RN notes): No Skin Symptoms (Recalled from RN notes): Yes MS Symptoms (Recalled from RN notes): No Functional Status (Recalled from RN notes): WNL History of Present Illness Provider Complaint: 47 yr old female presents for abscess under rt armpit for 3 weeks and draining Related Data Home Medications Medication Instructions Recorded Confirmed venlafaxine 150 mg 150 mg PO DAILY mood 05/05/21 10/15/22 capsule,extended release 24 hr Previous Rx's Medication Instructions Recorded cholecalciferol (vitamin D3) 25 25 mcg PO DAILY #90 caps 01/23/21 mcg (1,000 unit) capsule metoprolol succinate 100 mg 100 mg PO BID #60 tabs 05/05/21 tablet,extended release 24 hr (Toprol XL) albuterol sulfate 90 mcg/actuation 2 puff inhalation Q6H PRN 10/23/21 aerosol inhaler shortness of breath or wheezing #8.5 grams loratadine 10 mg tablet (Claritin) 10 mg PO DAILY #90 tabs 01/15/22 cholecalciferol (vitamin D3) 1,250 See Rx Instructions .Route 01/25/22 mcg (50,000 unit) capsule .COMPLEX #10 caps bupropion HCl 150 mg tablet,12 hr 150 mg PO BID #60 ea 04/09/22 sustained-release bupropion HCl 75 mg tablet 75 mg PO BID #60 tabs 04/09/22 atorvastatin 10 mg tablet See Rx Instructions .Route 04/30/22 .COMPLEX #90 tabs lisinopril 10 mg tablet See Rx Instructions .Route 05/13/22 .COMPLEX #90 tabs clonazepam 0.5 mg tablet (Klonopin) 0.5 mg PO BID #60 tabs 08/11/22 tramadol 50 mg tablet 50 mg PO BID pain #60 tabs 08/11/22 pro
[2023-04-16 18:01] VITALS: BP 141/85; PULSE 76; RESP 19; TEMP 36.7; O2SAT 98
== END 2023-04-16 18:05 | disposition home or self-care (01) ==
PROVIDERS: Emergency Provider Nurse Practitioner Family; PCP Family Medicine
DX: L02.411 Cutaneous abscess of right axilla (principal); F17.210 Nicotine dependence, cigarettes, uncomplicated; I10 Essential (primary) hypertension; E78.5 Hyperlipidemia, unspecified; F41.9 Anxiety disorder, unspecified; J45.909 Unspecified asthma, uncomplicated; G25.81 Restless legs syndrome; E55.9 Vitamin D deficiency, unspecified
CPT/HCPCS: 87070; 87077; 87205; 99212; 99214; G0463

== ENCOUNTER 2023-04-18 08:44 | Day surgery (SDC) | payer MEDICARE, MEDICAID, SELFPAY ==
[2023-04-18] VITALS (10 sets, daily range): BP systolic 120–166; BP diastolic 71–90; PULSE 70–82; RESP 12–18; TEMP 36.3–36.5; O2SAT 91–99; BMI 33.6
--- NOTE | 2023-04-18 09:20 | P.PNANES_ITS ---
[facility] Disclaimer: The information contained in this section may have been updated after the patient was seen, as this information can be updated by other users. 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) Smoking Status: Current every day smoker tobacco type: cigarettes packs per day: 1 second hand exposure: No alcohol intake: never substance use type: denies use current occupational status: unemployed Travel in the last 8 weeks: None housing: house 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 current occupational exposures/hazards: No caffeine: Yes [facility] Anesthesia Checklist Patient Identification Patient Identification: Arm Band Structural Data Admitted From: Home Planned Operative Procedure/s: I&D Right Axilla Consent for Planned Operative Procedure(s) Verified: Yes Verified Documents: Surgical Consent and History and Physical NPO Status Verified Time NPO: 00:00 Additional verifications Anesthesia Reactions: No Hx Blood Transfusions: No Blood Transfusion Reaction: No Airway Assessment C-Spine Mobility Assessed: Yes TMJ Mobility Assessed: Yes Dentition: Good Dentition Neurological Assessment Level of Consciousness: Awake and Alert Anesthesia Plan Anesthesia Risk discussed: Yes Anesthesia Plan: Verified ASA Class: II Anesthesia Type: General
[2023-04-18 09:23] LABS: Urine Pregnancy, HCG Qual. Negative (Negative)
--- NOTE | 2023-04-18 10:02 | P.OP_ITS ---
Date of procedure: 04/18/23 Pre-op Diagnosis:: Abscessed right axillary sebaceous cyst Post-op Diagnosis:: Same Procedure performed:: Excision of 4 cm right axillary abscessed sebaceous cyst and small satellite abscessed cyst Surgeon:: Chun Coronel MD Anesthesia: local and LMA Estimated blood loss (mL): 15 Operative findings:: 4 cm abscessed cyst and small satellite cyst excised in toto Operative note:: After informed consent was obtained the patient was taken to the operating room and placed in the supine position. General anesthesia with laryngeal mask airway was achieved. Her right axilla was prepped and draped in a sterile [facility] ion. The small satellite abscessed cyst in the posterior axilla was excised with electrocautery in an elliptical fashion. The larger 4 cm abscessed cyst was excised in a similar manner. The dissection was taken into the deeper subcutaneous tissue but not to any fascial margin. Electrocautery was utilized to achieve hemostasis. Wounds were packed open after infiltration local anesthetic. Dressings were applied and the patient was transferred to recovery in stable condition. Condition: stable Disposition: PACU Specimens:: Abscessed right axillary cysts Complications:: No immediate
--- NOTE | 2023-04-18 10:11 | P.PNANES_ITS ---
[facility] Anesthesia Record Part I Anesthesia Record I Intake, IV Amount: 350 Estimated blood loss (mL): 5 Urine output (mL): 0 Blood Pressure: 123/79 SaO2: 93 Pulse Rate: 76 Respiratory Rate: 12 Temperature: 97.6 F Patient is:: Drowsy and Stable Stable to PACU at:: 10:09
--- NOTE | 2023-04-18 10:58 | P.PNANES_ITS ---
[facility] Anesthesia Record Part II Anesthesia Record Part II Discharge Time: 10:29 Destination: Surgical Day Care (OP Surgery) PACU nurse assessment reviewed?: Yes Patient Condition:: Good Anesthesia Complications:: None Swallowing reflex intact?: Yes Cyanosis?: No Blood Pressure: 129/87 Pulse Rate: 70 Temperature: 97.7 F Mental Status: Alert & Oriented Pain level:: 0 Nausea and/or vomitting:: None Intake, IV Amount: 0
--- NOTE | 2023-04-18 11:00 | PC.NURSE ---
MD has been notified about pt's pain and are waiting for a return call.
--- NOTE | 2023-04-18 11:14 | SUR.PHASEII ---
still no response from Dr. Coronel.
== END 2023-04-18 11:38 | disposition home or self-care (01) ==
PROVIDERS: PCP Family Medicine; Visit Provider Surgery
PROC: (CPT 11404; principal; 2023-04-18 08:45)
DX: L72.0 Epidermal cyst (principal); L02.411 Cutaneous abscess of right axilla
CPT/HCPCS: 11404; 81025; 96374; J2405

== ENCOUNTER 2023-04-24 13:31 | Emergency (ER) | payer MEDICARE, MEDICAID, SELFPAY ==
[2023-04-24 13:33] VITALS: BP 117/86; PULSE 83; RESP 16; TEMP 36.6; O2SAT 98; BMI 35.6
[2023-04-24 14:00] VITALS: BP 128/63; PULSE 80; O2SAT 97
--- NOTE | 2023-04-24 14:16 | CT_ITS ---
PROCEDURE INFORMATION: Exam: CT Chest With Contrast; Diagnostic Exam date and time: 04/24/2023 3:21 PM Age: 47 years old Clinical indication: Pain; Right-sided; Prior surgery; Surgery date: Post-operative (0-2 days); Surgery type: Cyst removed right axilla, ; additional info: Recent R axilla surgery, drainage and pain TECHNIQUE: Imaging protocol: Diagnostic computed tomography of the chest with contrast. Radiation optimization: All CT scans at this facility use at least one of these dose optimization techniques: automated exposure control; mA and/or kV adjustment per patient size (includes targeted exams where dose is matched to clinical indication); or iterative reconstruction. Contrast material: ISOVUE; Contrast volume: 75 ml; Contrast route: IV; REPORTING DATA: Count of CT and Cardiac NM exams in prior 12 months: This patient has received 0 known CTs and 0 known cardiac nuclear medicine studies in the 12 months prior to the current study. COMPARISON: CHESTW CT chest w con 01/05/2018 10:38 AM FINDINGS: Lungs: Few scattered small pulmonary nodules left lower lobe measuring up to 5 mm, stable. No new nodules identified. Mild hypoventilatory changes present posteriorly lower lung zones. Scattered granulomatous calcifications in the mediastinum and left hilum. Pleural spaces: Unremarkable. No pneumothorax. No pleural effusion. Heart: Heart is not significantly enlarged. No significant coronary artery calcifications. No significant pericardial effusion. Lymph nodes: No significant mediastinal, hilar or axillary lymphadenopathy. Vasculature: Unremarkable. No aortic aneurysm. Liver: Fatty infiltration of the liver which is partially visualized. Bones/joints: Unremarkable. No acute fracture. Soft tissues: Postsurgical defect of present old along the superficial soft tissues right axilla. No underlying mass, abscess or fluid collection. IMPRESSION: 1. Mild postop changes present superficially right axilla. No underlying inflammatory changes or abscess collection detected. 2. Additional nonemergent findings as above.
--- NOTE | 2023-04-24 14:18 | CT_ITS ---
PROCEDURE INFORMATION: Exam: CT Right Upper Extremity With Contrast, Upper Arm Exam date and time: 04/24/2023 3:13 PM Age: 47 years old Clinical indication: Pain; Other: Under her arm; Additional info: Recent axilla surgery, drainage and pain TECHNIQUE: Imaging protocol: Computed tomography of the right upper extremity with contrast. Exam focused on the upper arm. Radiation optimization: All CT scans at this facility use at least one of these dose optimization techniques: automated exposure control; mA and/or kV adjustment per patient size (includes targeted exams where dose is matched to clinical indication); or iterative reconstruction. Contrast material: ISOVUE; Contrast volume: 50 ml; Contrast route: IV; REPORTING DATA: Count of CT and Cardiac NM exams in prior 12 months: This patient has received 0 known CTs and 0 known cardiac nuclear medicine studies in the 12 months prior to the current study. COMPARISON: CT CERVICAL SPINE WO CON 11/11/2019 1:54 PM FINDINGS: Bones/joints: Osseous structures are unremarkable. No osteolytic or destructive bone changes. Soft tissues: Well-demarcated defect involving the superficial soft tissues right axilla presumed postsurgical in nature. Minimal adjacent fat stranding believed postoperative in nature. No mass abscess collection or fluid collection detected. Deeper fat planes are preserved. No significant axillary lymphadenopathy. IMPRESSION: Mild postop changes present within the superficial soft tissues right axilla. No underlying mass or abscess collection.
--- NOTE | 2023-04-24 14:18 | HMH.EDGENADL ---
Discharge Plan Disposition Chief Complaint: Skin/Abscess/Foreign Body Prescriptions Prescriptions: No Action venlafaxine 150 mg capsule,extended release 24hr 150 mg PO DAILY albuterol sulfate 90 mcg/actuation HFA aerosol inhaler 2 puff INHALATION Q6H PRN (Reason: shortness of breath or wheezing) Qty: 8.5 2RF atorvastatin 10 mg tablet 10 mg PO DAILY Rx Instructions: TAKE 1 TABLET BY MOUTH AT BEDTIME FOR HIGH CHOLESTEROL metoprolol succinate [Toprol XL] 100 mg tablet extended release 24 hr 100 mg PO BID sulfamethoxazole-trimethoprim [Bactrim DS] 800-160 mg tablet 1 tab PO Q12H lisinopril 10 mg tablet 10 mg PO DAILY Rx Instructions: TAKE 1 TABLET BY MOUTH ONCE DAILY FOR HYPERTENSION Referrals Follow up/Referrals: Provider,Referral, MD [Primary Care Provider] - See instructions Instructions Patient Instructions: DI for Skin Abscess Discharge ED Provider: Jaquan Cheatham General Adult HPI General Chief complaint: Skin/Abscess/Foreign Body Stated complaint: post surgery under arm possibly infected Time Seen by Provider: 04/24/23 14:08 Mode of Arrival: Ambulatory Limitations: No Limitations Description of Symptoms (Recalled from ER Triage Doc. by RN): Pt reports sugery tuesday to have an abscessed cyst removed. pt reports increased drainage that started lastnight History of Present Illness HPI narrative: Patient is a 47-year-old female with past medical history of recurrent cysts previously requiring excision, recent cyst excision in her right axilla x2 who presents emergency department for evaluation of pain and swelling. History is obtained by patient at bedside and per chart review. Patient recently had 2 cysts which were excised in her right axilla without complication. She had some achiness throughout the week however over the last 24 hours she has had increased drainage in her packings, pain that is spreading up into her medial proximal right upper extremity and around the surgical site causing her to be concerned and present here for continued evaluation. Patient denies fevers, other acute complaints at this time. Related Data Home Medications Medication Instructions Recorded Confirmed venlafaxine 150 mg 150 mg PO DAILY mood 05/05/21 04/24/23 capsule,extended release 24 hr atorvastatin 10 mg tablet 10 mg PO DAILY Cholesterol 04/18/23 04/24/23 lisinopril 10 mg tablet 10 mg PO DAILY BP 04/18/23 04/24/23 metoprolol succinate 100 mg 100 mg PO BID HR 04/18/23 04/24/23 tablet,extended release 24 hr (Toprol XL) sulfamethoxazole 800 1 tab PO Q12H INFECTION 04/18/23 04/24/23 mg-trimethoprim 160 mg tablet (Bactrim DS) Previous Rx's Medication Instructions Recorded albuterol sulfate 90 mcg/actuation 2 puff inhalation Q6H PRN 10/23/21 aerosol inhaler shortness of breath or wheezing #8.5 grams Allergies Allergy/AdvReac Type Severity Reaction Status Date / Time No Known Allergies Allergy Verified 04/18/23 09:12 [facility] Disclaimer: The information contained in this section may have been updated after the patient was seen, as this information can be updated by other users. 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 (Updated 04/24/23 @ 13:47 by Delilah Hernández RN) Anxiety Asthma Axillary abscess Chronic cough Depression Foot pain, left Herpes labialis History of anemia Hyperlipidemia Hypertension Mass of soft tissue of left lower extremity Overweight PTSD (post-traumatic stress disorder) Restless leg syndrome Retinopathy SVT (supraventricular tachycardia) Toenail fungus Vitamin D deficiency Surgical History (Updated 04/18/23 @ 09:24 by Kimberlee Finch, STEVAN) History of loop recorder History of surgery Hx of section Hx of tonsillectomy Hx of tubal ligation S/P ACL repair Family History (Updated 04/18/23 @ 09:24 by Kimberlee Finch, STEVAN) Other No significant family history Social History (Updated 04/18/23 @ 09:25 by Kimberlee
[2023-04-24 14:30] VITALS: BP 120/62; PULSE 74; O2SAT 97
[2023-04-24 14:52] LABS: Basophils % 0.4 % (0.1-2.0); Eosinophils # 0.2 K/mm3 (0.0-0.4); Eosinophils % 1.8 % (0.1-12.0); Hemoglobin 11.1 g/dL (12.2-16.2); Lymphocytes # 2.2 K/mm3 (0.7-4.5); Lymphocytes % 23.1 % (10-50); Mean Corpuscular HGB Conc 31.7 g/dL (31.8-35.4); Mean Corpuscular Hemoglobin 24.2 pg (27.0-31.2); Mean Corpuscular Volume 76.4 fl (81-99); Mean Platelet Volume 7.6 fl (7.4-10.4); Monocytes # 0.5 K/mm3 (0.1-1.0); Monocytes % 5.6 % (1.7-9.3); Neutrophils # 6.6 K/mm3 (1.8-7.8); Neutrophils % 69.1 % (37.0-80.0); Platelet Count 409 K/mm3 (142-424); Red Blood Count 4.58 M/mm3 (4.20-5.40); Red Cell Distribution Width 15.9 % (11.5-17.5); White Blood Count 9.5 K/mm3 (4.8-10.8)
[2023-04-24 14:54] LABS: Chloride 104 mmol/L (98-107); Potassium 3.5 mmoL/L (3.5-5.1); Sodium 136 mmol/L (136-145)
[2023-04-24 14:56] LABS: Blood Urea Nitrogen 6 mg/dl (7-17); Creatinine Clearance Estimated 139 mL/min (50-200); Estimated Glomerular Filt Rate 90 ml/min (>60); GFR (African American) 109 ML/MIN (>60)
[2023-04-24 14:57] LABS: Alanine Aminotransferase 27 U/L (12-78); Albumin/Globulin Ratio 1.3 (1.1-1.8); Alkaline Phosphatase 92 U/L (38-126); Anion Gap 10.5 mEq/L (5-15); Aspartate Amino Transferase 25 U/L (14-36); Bilirubin,Total 0.7 mg/dl (0.2-1.3); Calcium 8.8 mg/dl (8.4-10.2); Carbon Dioxide 25 mmol/L (22.0-30.0); Globulin 3.1 g/dL (1.3-3.2); Glucose 105 mg/dl (74-100); Total Protein,Serum 7.1 g/dl (6.3-8.2)
[2023-04-24 15:00] VITALS: BP 126/66; O2SAT 95
[2023-04-24 15:02] LABS: C-Reactive Protein 8.8 mg/L (0-4)
[2023-04-24 15:16] LABS: Erythrocyte Sedimentation Rate 49 mm/hr (0-20)
--- NOTE | 2023-04-24 15:25 | PC.NURSE ---
Patient back from CT
--- NOTE | 2023-04-24 15:45 | PC.NURSE ---
Applied wet to dry dressing to wound.
[2023-04-24 16:01] VITALS: BP 128/71; PULSE 75; O2SAT 97
--- NOTE | 2023-04-24 17:56 | PC.NURSE ---
Wet to Dry Dressing applied. Pt tolerated well.
[2023-04-24 17:57] VITALS: BP 142/82; PULSE 74; RESP 16; TEMP 36.6; O2SAT 97
== END 2023-04-24 18:00 | disposition home or self-care (01) ==
PROVIDERS: Emergency Provider Emergency Medicine
DX: G89.18 Other acute postprocedural pain (principal); R22.31 Localized swelling, mass and lump, right upper limb; Y83.8 Other surgical procedures as the cause of abnormal reaction of the patient, or of later complication, without mention of misadventure at the time of the procedure; F41.9 Anxiety disorder, unspecified; J45.909 Unspecified asthma, uncomplicated; E78.5 Hyperlipidemia, unspecified; I10 Essential (primary) hypertension; I47.1 Supraventricular tachycardia; F43.10 Post-traumatic stress disorder, unspecified; F17.210 Nicotine dependence, cigarettes, uncomplicated
CPT/HCPCS: 71260; 73201; 80053; 85025; 85651; 86140; 99285; Q9967

== ENCOUNTER → 2023-05-16 15:17 | Outpatient (CLI) | payer MEDICARE, MEDICAID, SELFPAY ==
[2023-05-16 13:34] LABS: Alanine Aminotransferase 25 U/L (12-78); Albumin Level 4.3 g/dl (3.5-5.0); Albumin/Globulin Ratio 1.3 (1.1-1.8); Alkaline Phosphatase 96 U/L (38-126); Anion Gap 11.2 mEq/L (5-15); Aspartate Amino Transferase 32 U/L (14-36); Blood Urea Nitrogen 11 mg/dl (7-17); Carbon Dioxide 22 mmol/L (22.0-30.0); Chloride 106 mmol/L (98-107); Chol/HDL Ratio 5.3 (1-3.5); Cholesterol 227 mg/dl (140-200); Estimated Glomerular Filt Rate 107 ml/min (>60); GFR (African American) 130 ML/MIN (>60); Globulin 3.3 g/dL (1.3-3.2); Glucose 59 mg/dl (74-100); HDL Cholesterol 43 mg/dl (40-60); Potassium 4.2 mmoL/L (3.5-5.1); Sodium 135 mmol/L (136-145); Total Protein,Serum 7.6 g/dl (6.3-8.2); Triglycerides 195 mg/dl (30-150); VLDL Cholesterol 39 mg/dL (0-40)
[2023-05-16 13:47] LABS: Direct LDL Cholesterol 140.35 mg/dL (100-129)
[2023-05-16 13:51] LABS: 25-OH Vitamin D, Total 48.5 ng/mL (30-100); T4 (Thyroxine) 11.3 ug/dl (5.53-11.0)
[2023-05-16 14:05] LABS: Thyroid Stimulating Hormone 1.37 uIU/mL (0.465-4.68)
== END ==
LOC: LAB.DROPOF 15:17
PROVIDERS: PCP Emergency Medicine; Visit Provider Emergency Medicine
DX: E66.9 Obesity, unspecified (principal); I10 Essential (primary) hypertension; E55.9 Vitamin D deficiency, unspecified; Z68.35 Body mass index [BMI] 35.0-35.9, adult
CPT/HCPCS: 80053; 80061; 82306; 84436; 84443

== ENCOUNTER 2023-10-06 19:33 | Outpatient (CLI) | payer MEDICARE, MEDICAID, SELFPAY ==
[2023-10-06 22:12] LABS: Amphetamine/Metha Screen,Urine Negative ng/ml (<1000); Barbiturates Screen,Urine Negative ng/ml (<200); Benzodiazepines Screen,Urine Negative ng/ml (<200); Cannabinoid Screen,Urine Negative ng/ml (<50); Cocaine Screen,Urine Negative ng/ml (<300); Methadone Screen,Urine Negative ng/ml (<300); Opiate Screen,Urine Negative ng/ml (<300); Phencyclidine Screen,Urine Negative ng/ml (<25)
[2023-10-12 10:34] LABS: Alprazolam Negative (Cutoff=100); Benzodiazepines Negative ng/mL (Cutoff=100); Clonazepam Negative (Cutoff=100); Flurazepam Negative (Cutoff=100); Lorazepam Negative (Cutoff=100); Midazolam Negative (Cutoff=100); Temazepam Negative (Cutoff=100); Triazolam Negative (Cutoff=100)
== END 2023-10-06 23:59 ==
LOC: LAB.DROPOF 19:34
PROVIDERS: Visit Provider Family Medicine
DX: Z79.899 Other long term (current) drug therapy (principal)
CPT/HCPCS: 80307; 80346

== ENCOUNTER 2023-11-16 22:23 | Outpatient (CLI) | payer MEDICARE, MEDICAID, SELFPAY ==
[2023-11-16 18:55] LABS: Basophils % 0.3 % (0.1-2.0); Eosinophils # 0.2 K/mm3 (0.0-0.4); Hematocrit 38.4 % (37.0-47.0); Hemoglobin 12.1 g/dL (12.2-16.2); Lymphocytes # 2.5 K/mm3 (0.7-4.5); Lymphocytes % 27.7 % (10-50); Mean Corpuscular HGB Conc 31.5 g/dL (31.8-35.4); Mean Corpuscular Hemoglobin 25.8 pg (27.0-31.2); Mean Corpuscular Volume 81.8 fl (81-99); Monocytes # 0.5 K/mm3 (0.1-1.0); Monocytes % 5.5 % (1.7-9.3); Neutrophils # 5.9 K/mm3 (1.8-7.8); Neutrophils % 64.5 % (37.0-80.0); Platelet Count 371 K/mm3 (142-424); Red Cell Distribution Width 16.3 % (11.5-17.5); White Blood Count 9.1 K/mm3 (4.8-10.8)
[2023-11-16 19:06] LABS: Chloride 108 mmol/L (98-107)
[2023-11-16 19:07] LABS: Potassium 3.9 mmoL/L (3.5-5.1); Sodium 136 mmol/L (136-145)
[2023-11-16 19:09] LABS: Alanine Aminotransferase 25 U/L (12-78); Alkaline Phosphatase 89 U/L (38-126); Anion Gap 6.9 mEq/L (5-15); Aspartate Amino Transferase 28 U/L (14-36); Bilirubin,Direct 0.2 mg/dl (0.0-0.4); Bilirubin,Total 1.2 mg/dl (0.2-1.3); Blood Urea Nitrogen 7 mg/dl (7-17); Carbon Dioxide 25 mmol/L (22.0-30.0); Cholesterol 191 mg/dl (140-200); Estimated Glomerular Filt Rate 89 ml/min (>60); GFR (African American) 108 ML/MIN (>60); Triglycerides 255 mg/dl (30-150); VLDL Cholesterol 51 mg/dL (0-40)
[2023-11-16 19:10] LABS: Albumin Level 3.9 g/dl (3.5-5.0); Albumin/Globulin Ratio 1.4 (1.1-1.8); Calcium 9.1 mg/dl (8.4-10.2); Globulin 2.8 g/dL (1.3-3.2); Glucose 89 mg/dl (74-100); HDL Cholesterol 32 mg/dl (40-60); Total Protein,Serum 6.7 g/dl (6.3-8.2)
[2023-11-16 19:26] LABS: Direct LDL Cholesterol 113.12 mg/dL (100-129)
[2023-11-16 19:44] LABS: Triiodothryronine (T3) Uptake 29 % (23.5-40.5)
[2023-11-16 19:45] LABS: Free Thyroxine Index 3.2 ug/dL (5.93-13.13)
[2023-11-16 19:52] LABS: 25-OH Vitamin D, Total 36.6 ng/mL (30-100)
[2023-11-16 19:58] LABS: Thyroid Stimulating Hormone 2.48 uIU/mL (0.465-4.68)
== END 2023-11-16 23:59 ==
LOC: LAB.DROPOF 22:24
PROVIDERS: PCP Family Medicine; Visit Provider Family Medicine
DX: E04.1 Nontoxic single thyroid nodule (principal); E78.5 Hyperlipidemia, unspecified; E55.9 Vitamin D deficiency, unspecified; I10 Essential (primary) hypertension; E66.3 Overweight; Z68.36 Body mass index [BMI] 36.0-36.9, adult; F17.210 Nicotine dependence, cigarettes, uncomplicated
CPT/HCPCS: 80053; 80061; 80076; 82306; 84436; 84443; 84479; 85025

== ENCOUNTER 2023-12-28 08:25 | Outpatient (CLI) | payer MEDICARE, MEDICAID, SELFPAY ==
--- NOTE | 2023-12-28 08:32 | XR_ITS ---
FINAL REPORT CLINICAL HISTORY: Lt Knee Pain - h/o ACL surgery COMPARISON: 11/03/2022 FINDINGS: Left knee Three views were obtained. There is no acute fracture or dislocation. There are postoperative changes from prior ACL repair, stable. No acute soft tissue abnormality is identified. IMPRESSION: No acute process. Reviewed, Interpreted and Dictated by Mian Agrawal III, MD Transcribed by Huong Roger Authenticated and [facility]
== END 2023-12-28 23:59 ==
LOC: RAD 08:27
PROVIDERS: PCP Physician Assistant; Visit Provider Orthopaedic Surgery
DX: M25.562 Pain in left knee (principal)
CPT/HCPCS: 73562

== ENCOUNTER 2024-01-18 18:00 | Outpatient (CLI) | payer MEDICARE, MEDICAID, SELFPAY ==
[2024-01-18 18:47] LABS: Basophils % 0.5 % (0.1-2.0); Eosinophils # 0.1 K/mm3 (0.0-0.4); Eosinophils % 0.9 % (0.1-12.0); Hematocrit 42.5 % (37.0-47.0); Hemoglobin 13.3 g/dL (12.2-16.2); Lymphocytes # 1.9 K/mm3 (0.7-4.5); Lymphocytes % 20.4 % (10-50); Mean Corpuscular HGB Conc 31.3 g/dL (31.8-35.4); Mean Corpuscular Hemoglobin 26.7 pg (27.0-31.2); Mean Corpuscular Volume 85.4 fl (81-99); Mean Platelet Volume 8.4 fl (7.4-10.4); Monocytes # 0.5 K/mm3 (0.1-1.0); Monocytes % 5.1 % (1.7-9.3); Neutrophils # 6.8 K/mm3 (1.8-7.8); Neutrophils % 73.1 % (37.0-80.0); Platelet Count 343 K/mm3 (142-424); Red Blood Count 4.98 M/mm3 (4.20-5.40); Red Cell Distribution Width 18.3 % (11.5-17.5); White Blood Count 9.3 K/mm3 (4.8-10.8)
[2024-01-18 19:02] LABS: Chloride 104 mmol/L (98-107); Sodium 136 mmol/L (136-145)
[2024-01-18 19:05] LABS: Alanine Aminotransferase 23 U/L (12-78); Alkaline Phosphatase 89 U/L (38-126); Aspartate Amino Transferase 25 U/L (14-36); Bilirubin,Direct 0.4 mg/dl (0.0-0.4); Bilirubin,Indirect 1.1 mg/dL (0.0-0.9); Bilirubin,Total 1.5 mg/dl (0.2-1.3); Bilirubin,Unconjugated 1.1 mg/dL (0.0-1.1); Blood Urea Nitrogen 7 mg/dl (7-17); Calcium 9.2 mg/dl (8.4-10.2); Carbon Dioxide 23 mmol/L (22.0-30.0); Estimated Glomerular Filt Rate 89 ml/min (>60); GFR (African American) 108 ML/MIN (>60); Glucose 78 mg/dl (74-100)
[2024-01-18 19:06] LABS: Albumin Level 3.9 g/dl (3.5-5.0); Albumin/Globulin Ratio 1.4 (1.1-1.8); Globulin 2.7 g/dL (1.3-3.2); Iron 57 ug/dL (37-170); Total Protein,Serum 6.6 g/dl (6.3-8.2)
[2024-01-18 19:09] LABS: 25-OH Vitamin D, Total 27.7 ng/mL (30-100)
[2024-01-18 19:16] LABS: Total Iron Binding Capacity 448 ug/dL (265-497)
[2024-01-18 19:41] LABS: Ferritin 11.1 ng/ml (6.24-137)
== END 2024-01-18 23:59 | disposition home or self-care (01) ==
LOC: LAB.DROPOF 01-19 10:07
PROVIDERS: PCP Family Medicine; Visit Provider Family Medicine
DX: E66.3 Overweight (principal); I10 Essential (primary) hypertension; E55.9 Vitamin D deficiency, unspecified; D50.9 Iron deficiency anemia, unspecified; Z68.36 Body mass index [BMI] 36.0-36.9, adult; Z79.899 Other long term (current) drug therapy
CPT/HCPCS: 80053; 80076; 82306; 82728; 83540; 83550; 85025

== ENCOUNTER 2024-05-04 15:23 | Outpatient (CLI) | payer MEDICARE, MEDICAID, SELFPAY ==
--- NOTE | 2024-05-04 15:24 | US_ITS ---
FINAL REPORT CLINICAL HISTORY: thyroid nodule FINDINGS: Sonographic images of the thyroid gland were obtained. The right thyroid lobe measures 48 mm. in length. The left thyroid lobe measures 44 mm. in length. The thyroid isthmus measures 4 mm. The echogenicity is normal. There is a 3 mm nodule in the right isthmus which is solid and hypoechoic consistent with TI-RADS category 4. There is a 3 mm nodule in the left thyroid lobe which is solid and hypoechoic consistent with TI-RADS category 4. IMPRESSION: Unremarkable thyroid ultrasound. Reviewed, Interpreted and Dictated by Mian Agrawal III, MD Transcribed by Huong Roger Authenticated and [facility]
--- NOTE | 2024-05-04 15:24 | MM_ITS ---
PROCEDURE INFORMATION: Exam: MG Bilateral Screening 3D Mammography Exam date and time: 05/04/2024 3:21 PM Age: 48 years old Clinical indication: Screening examination TECHNIQUE: Imaging protocol: Bilateral Screening tomosynthesis and 2D mammography including computer-aided detection (CAD) when performed. COMPARISON: 1. MG MM DIG SCREENING MAMM BI W/CAD 09/22/2022 10:53 AM 2. MG MM DIG MAMM DX UNILAT RT CAD 09/21/2019 1:35 PM FINDINGS: MAMMOGRAPHY: Breast composition: The breasts are heterogeneously dense, which may obscure small masses. Mass: None. Architectural distortion: None. Calcifications: No suspicious calcifications. Asymmetric density: None. Skin thickening: None. Axillary adenopathy: None. IMPRESSION: No mammographic evidence of malignancy. Annual screening is recommended unless otherwise clinically indicated. ASSESSMENT: BI-RADS Category 1: Negative
== END 2024-05-04 23:59 | disposition home or self-care (01) ==
LOC: RAD 15:24
PROVIDERS: PCP Family Medicine; Visit Provider Family Medicine
DX: Z12.31 Encounter for screening mammogram for malignant neoplasm of breast (principal); E04.1 Nontoxic single thyroid nodule
CPT/HCPCS: 76536; 77063; 77067

== ENCOUNTER 2024-09-05 09:46 | Outpatient (CLI) | payer MEDICARE, MEDICAID, SELFPAY ==
--- NOTE | 2024-09-05 09:51 | CA_ITS ---
APPROVED REPORT EXAM: Comprehensive 2D, Doppler, and color-flow Echocardiogram Health Informatics Specialist: Nenita White RVT Ht: 5 ft 2 in Wt: 189lbs BSA: 1.87 BP: 134/88 mmHg Indications: MONTEJO,PRIOR ABLATION,LOOP RECORDER,HTN,HLD,SMOKER 2D Dimensions LA Volume 29.90 mL LA Volume Index 15.99 mL/m2 (M/F) 16-34 M-Mode Dimensions RVDd 2.53 cm (0.9-2.6) LA Diam 3.49 cm (1.9-4.0) LVDd 3.81 cm (3.5-5.7) LVDs 1.81 cm (3.5-5.7) IVSd 0.76 cm (0.6-1.1) PWd 0.60 cm (0.6-1.1) EF (Teich) 84.10% FS 52.50% EDV (Teich) 62.30 mL TAPSE 2.25 (<1.7) ESV (Teich) 9.90 mL LV Diastology E Decel Time 270 (160-240 msec) E/A Ratio 0.8 Aortic Valve HARRY Index 1.94 cm2/m2 AoV Peak Pritesh. 128.0 (50-130 cm/s) AO Peak GR. 6.50 mmHg AO Mean GR. 3.30 (<5 mmHg) AO VTI 20.6 (18-25 cm) HARRY (VTI) 3.70 (2.5-4.5 cm2) Mitral Valve MV E Max Pritesh. 62.0 (40-130 cm/s) MV A Velocity 80.0 (40-130 cm/s) E/A Ratio 0.77 MV PHT 79.0 ms Pulmonary Valve PV Peak Velocity 101.0 (50-150 cm/s) Tricuspid Valve TR P. Velocity 177.00 cm/s RAP Estimate 10.00 mmHg RVSP 22.50 mmHg Left Ventricle The left ventricle is normal size. The left ventricular systolic function is normal. The left ventricular ejection fraction is within the normal range. There is increased LV wall thickness. There is normal LV segmental wall motion. Transmitral Doppler flow pattern suggests impaired LV relaxation. LVEF is 55%. Right Ventricle The right ventricle is normal size. The right ventricular systolic function is normal. Atria The left atrium size is normal. The right atrium size is normal. There is no Doppler evidence of interatrial shunt. Aortic Valve Aortic valve opens well. There is no aortic valvular stenosis. No aortic regurgitation is present. Mitral Valve The mitral valve is normal in structure. No evidence of mitral valve stenosis. Trace mitral regurgitation. Tricuspid Valve Tricuspid valve is grossly normal in structure and function. Mild tricuspid regurgitation. RVSP is normal. Pulmonic Valve The pulmonary valve is normal in structure. Trace pulmonic regurgitation. Great Vessels The aortic root is normal in size. The ascending aorta is not well-visualized. IVC is normal in size and collapses >50% with inspiration. Pericardium There is no pericardial effusion. Other Information Study Quality: Fair Conclusion Normal biventricular systolic function. Mild TR. Electronically signed by : Sarah Merino MD 09/12/2024 10:33:11
== END 2024-09-05 23:59 | disposition home or self-care (01) ==
LOC: RT 09:48
PROVIDERS: PCP Family Medicine; Visit Provider Family Medicine
DX: I36.1 Nonrheumatic tricuspid (valve) insufficiency (principal); R06.09 Other forms of dyspnea; R00.2 Palpitations; R06.00 Dyspnea, unspecified; I47.10 Supraventricular tachycardia, unspecified; I10 Essential (primary) hypertension; E78.2 Mixed hyperlipidemia
CPT/HCPCS: 93306

== ENCOUNTER 2024-09-21 18:19 | Emergency (ER) | payer MEDICARE, MEDICAID, SELFPAY ==
[2024-09-21 19:40] VITALS: BP 140/75; PULSE 76; RESP 19; TEMP 36.7; O2SAT 98; BMI 35.0
[2024-09-21 19:58] LABS: UTC Influenza A Antigen Negative (Negative); UTC Influenza B Antigen Negative (Negative)
--- NOTE | 2024-09-21 20:04 | EXP.UTC ---
Discharge Plan Disposition Patient Disposition: Home, Self-Care Condition: Good Prescriptions Prescriptions: New guaifenesin [Mucinex] 1,200 mg tablet extended release 12hr 1,200 mg PO Q12H PRN (Reason: congestion) Qty: 30 0RF azithromycin [Zithromax Z-Paul] 250 mg tablet See Rx Instructions .ROUTE .COMPLEX 5 Days Qty: 6 0RF Rx Instructions: For 250 mg dose pack: take 500 mg today (day 1), then 250 mg for 4 days (days 2-5) prednisone 20 mg tablet 20 mg PO BID 5 Days Qty: 10 0RF No Action atorvastatin 20 mg tablet 20 mg PO HS Patient Comments: TAKE 1 TABLET BY MOUTH AT BEDTIME NIGHTLY FOR HIGH CHOLESTEROL venlafaxine 150 mg capsule,extended release 24hr 150 mg PO DAILY Patient Comments: TAKE 1 CAPSULE BY MOUTH ONCE DAILY FOR MOOD tramadol 50 mg tablet 50 mg PO DAILY Patient Comments: TAKE 1 TABLET BY MOUTH TWICE DAILY NEEDED FOR PAIN ferrous sulfate [FeroSul] 325 mg (65 mg iron) tablet 325 mg PO DAILY Patient Comments: TAKE 1 TABLET BY MOUTH ONCE DAILY lisinopril 10 mg tablet 10 mg PO DAILY Patient Comments: TAKE 1 TABLET BY MOUTH ONCE DAILY Referrals Follow up/Referrals: Andie Quintero APRN [Primary Care Provider] - See instructions Activity Restrictions/Add. Instructions Additional Instructions/Restrictions: Start antibiotic today. Be sure to complete entire prescription even if feeling better Monitor temp. Tylenol every 4 hours as needed and / or ibuprofen every 6 hours as needed ( As long as your primary care physician has told you that it ok to take both. For fever/aches/pains ER if no less than 101 despite Tylenol or Motrin Humidifier/vaporizer or hot steamy shower Inhaler every 4-6 hours as needed like we discussed. If unsure how to use it, ask pharmacist to demonstrate how. Should help open airways and improve cough, wheezing, and shortness of breath Mucinex for your cough Be sure to drink lots of water. *Start steroid tomorrow. Helps with inflammation therefore, cough and wheezing. Follow directions on the package. Reviewed side effects. Patient reports taking them before. Follow up IMMEDIATELY for new or worsening of symptoms OR no noticeable improvement over the next 48-72 hours. 911 immediately for any life threatening symptoms such as chest pain or difficulty breathing Clinical Impressions Clinical Impression: Bronchitis Sinusitis Qualifiers: Sinusitis location: unspecified location Chronicity: unspecified Qualified Code(s): J32.9 - Chronic sinusitis, unspecified Instructions Patient Instructions: Acute Bronchitis, DI for Sinusitis Print Language Print Language: Afghan Discharge ED Provider: Batsheva Leonard [facility] HPI General Stated complaint: cough, SOA, bilateral ear pain Mode of Arrival: Ambulatory Source of Information: Patient Limitations: No Limitations Time Seen by Provider: 09/21/24 20:04 Description of Symptoms (Recalled from Triage Doc. by RN): PATIENT C/O COUGH, CONGESTION, AND BODY ACHES HEENT Symptoms (Recalled from RN notes): Yes Resp Symptoms (Recalled from RN notes): Yes Skin Symptoms (Recalled from RN notes): No MS Symptoms (Recalled from RN notes): No Functional Status (Recalled from RN notes): WNL History of Present Illness Provider Complaint: Patient states that she has been having sinus congestion and pressure, cough, bilateral ear pain and pressure and thinks she may bronchitis again States that she has asthma and this has triggered it a little Related Data Home Medications ?Medication ?Instructions ?Recorded ?Confirmed atorvastatin 20 mg tablet 20 mg PO HS 09/21/24 09/21/24 ferrous sulfate 325 mg (65 mg 325 mg PO DAILY 09/21/24 09/21/24 iron) tablet (FeroSul) lisinopril 10 mg tablet 10 mg PO DAILY 09/21/24 09/21/24 tramadol 50 mg tablet 50 mg PO DAILY 09/21/24 09/21/24 venlafaxine 150 mg 150 mg PO DAILY 09/21/24 09/21/24 capsule,extended release 24 hr Previous Rx's ?Medication ?Instructions ?Recorded azithromycin 250 mg tablet See Rx Instructions PO .COMPLEX 5 09/21/24 (Zithromax Z-Paul) days #6 tabs guaifenesin 1,200 mg tablet, 1,200 mg PO Q12H PRN congestion 09/21/24 extended release 12 hr (Mucinex) #30 tabs prednisone 20 mg tablet 20 mg PO BID 5 days #10 tabs 09/21/24 Allergies Allergy/AdvReac Type Severity Reaction Status Date / Time No Known Allergies Allergy Verified 08/27/24 15:45 Worker's Comp Is this a Worker's Comp case?: No [facility] Disclaimer: The information contained in this section may have been updated after the patient was seen, as this information can be updated by other users. 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 Stress incontinence Postoperative pain Axillary abscess Chronic cough Depression History of anemia Abscess Foot pain, left Mass of soft tissue of left lower extremity Pharyngitis Bronchitis Tachycardia Hypertensive urgency Scalp abrasion Abrasion of right foot or toe Abrasion of right ankle Sacral contusion Otitis media SVT (supraventricular tachycardia) Dehydration PTSD (post-traumatic stress disorder) Anxiety SVT (supraventricular tachycardia) Overweight Chest pain Hyperlipidemia Lymphadenopathy Antibiotics and steroids; ENT f/u Hypokalemia Recheck labs PSVT (paroxysmal supraventricular tachycardia) Hypertension Vitamin D deficiency Herpes labialis Toenail fungus Asthma Retinopathy Sees retinal specialist Dr Osmani Christensen tomorrow Restless leg syndrome Surgical History History of loop recorder History of surgery HEART ABLATION Hx of tubal ligation Hx of section S/P ACL repair Hx of tonsillectomy Family History Other No significant family history Social History Smoking Status: Current every day smoker tobacco type: cigarettes packs per day: 1 years smoked: 25 second hand exposure: No alcohol intake: never substance use type: denies use current occupational status: disabled Travel in the last 8 weeks: None housing: house 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 current occupational exposures/hazards: No caffeine: Yes Have you lived/traveled outside US in past 30 days?: No Contact w/someone who lives/traveled outside US past 30 days?: No Exposure to someone with infectious disease in past 14 days?: No Do you have a fever (greater than 100.4 F or 38 C)?: No Have you tested positive for COVID-19: No Exposed to someone with COVID-19 in past 14 days?: No Do you have a sore throat?: No Do you have a cough?: Yes Do you have any weakness?: No Do you have any diarrhea?: No Are you experiencing any unusual bleeding?: No Do you have any muscle aches/pain?: No Do you have any abdominal pain?: No Are you experiencing loss of taste or smell?: No ROS Obtained: Yes All systems reviewed & no additional complaints except as documented and Yes Systems reviewed as appropriate & no additional complaints except as documented Constitutional Constitutional: Reports system reviewed and no additional complaints, except as documented, Reports as per HPI and Reports headache(s) ENT Ears, Nose, Mouth, and Throat: Reports system reviewed and no additional complaints, except as documented, Reports as per HPI, Reports otalgia, Reports headache(s), Reports nasal congestion and Reports sinus pressure Cardiovascular Cardiovascular: Reports system reviewed and no additional complaints, except as documented and Reports as per HPI Respiratory Respiratory: Reports system reviewed and no additional complaints, except as documented, Reports as per HPI, Reports chest congestion and Reports cough Gastrointestinal Gastrointestingal: Reports system reviewed and no additional complaints, except as documented and as per HPI Genitourinary Female Genitourinary: Reports system reviewed and no additional complaints, except as documented and Reports as per HPI Neurologic Neurologic: Reports headache(s) Physical Exam General General appearance: alert and in no apparent distress ENT ENT exam: Present mucous membranes moist Expanded ENT Exam TM/Canal exam: Bilateral TM: bulging Nose exam: Present sinus tenderness Throat exam: Present other (PND noted) Respiratory Respiratory exam: Present normal lung sounds bilaterally; Absent respiratory distress or wheezes Cardiovascular Cardiovascular exam: Present regular rate, normal rhythm and normal heart sounds Abdominal Exam Abdominal exam: Present soft and normal bowel sounds; Absent distention or tenderness Neurological Exam Neurological exam: Present alert, oriented X3 and normal gait Medical Decision Making Medical Records Screening: Per USPSTF and CDC recommendations, given the prevalence of disease in our region, it is our hospital?s policy to screen for HIV and viral Hepatitis for all patients aged 18 and over and those with ongoing risk factors. Ezequiel Inquiry Pt receiving controlled substance: No Ezequiel was queried for this patient: No Vital Signs: 09/21/24 19:40 Temperature 98.1 F Temperature Source Oral Pulse Rate [Left Brachial] 76 Respiratory Rate 19 Blood Pressure [Left Arm] 140/75 Blood Pressure Mean [Left Arm] 96 Blood Pressure Source [Left Arm] Automatic Cuff Blood Pressure Position [Left Arm] Sitting 02 Sat by Pulse Oximetry 98 Oxygen Delivery Method Room Air Lab Data Lab results reviewed: Yes I reviewed the patient's lab results. Lab Results 09/21/24 19:37: Influenza Type A Ag Negative, Influenza Type B Ag Negative
[2024-09-21] MEDS: cefTRIAXone 1GM VIAL 1 GM IM (20:20)
[2024-09-21] MEDS: METHYLPREDNISOLONE SOD SUCC 125MG VIAL 125 MG IM (20:20)
[2024-09-21] MEDS: LIDOCAINE 1% 5ML PF VIAL IM (20:20)
[2024-09-21 20:21] VITALS: BP 140/75; PULSE 76; RESP 19; TEMP 36.7; O2SAT 98
== END 2024-09-21 20:30 | disposition home or self-care (01) ==
PROVIDERS: Emergency Provider Nurse Practitioner; PCP Family Medicine
DX: J20.9 Acute bronchitis, unspecified (principal); J32.9 Chronic sinusitis, unspecified
CPT/HCPCS: 87804; 96372; 99213; G0381; J0696; J2919

== ENCOUNTER 2024-12-21 15:15 | Outpatient (CLI) | payer MEDICARE, MEDICAID, SELFPAY ==
[2024-12-21 18:39] LABS: Basophils % 0.4 % (0.1-2.0); Eosinophils # 0.2 K/mm3 (0.0-0.4); Eosinophils % 1.8 % (0.1-12.0); Hematocrit 43.6 % (37.0-47.0); Hemoglobin 14.9 g/dL (12.2-16.2); Lymphocytes # 1.6 K/mm3 (0.7-4.5); Lymphocytes % 16.8 % (10-50); Mean Corpuscular HGB Conc 34.2 g/dL (31.8-35.4); Mean Corpuscular Hemoglobin 30.9 pg (27.0-31.2); Mean Corpuscular Volume 90.5 fl (81-99); Mean Platelet Volume 10.1 fl (7.4-10.4); Monocytes # 0.6 K/mm3 (0.1-1.0); Monocytes % 6.7 % (1.7-9.3); Platelet Count 283 K/mm3 (142-424); Red Blood Count 4.82 M/mm3 (4.20-5.40); Red Cell Distribution Width 12.7 % (11.5-17.5); White Blood Count 9.4 K/mm3 (4.8-10.8)
[2024-12-21 18:57] LABS: Alanine Aminotransferase 28 U/L (12-78); Albumin Level 4.3 g/dl (3.5-5.0); Albumin/Globulin Ratio 1.7 (1.1-1.8); Alkaline Phosphatase 77 U/L (38-126); Anion Gap 14.9 mEq/L (5-15); Aspartate Amino Transferase 28 U/L (14-36); Bilirubin,Total 1.5 mg/dl (0.2-1.3); Blood Urea Nitrogen 7 mg/dl (7-17); Calcium 9.4 mg/dl (8.4-10.2); Carbon Dioxide 22 mmol/L (22.0-30.0); Chloride 102 mmol/L (98-107); Chol/HDL Ratio 4.6 (1-3.5); Cholesterol 144 mg/dl (140-200); Estimated Glomerular Filt Rate 89 ml/min (>60); GFR (African American) 108 ML/MIN (>60); Globulin 2.5 g/dL (1.3-3.2); Glucose 97 mg/dl (74-100); HDL Cholesterol 31 mg/dl (40-60); Potassium 3.9 mmoL/L (3.5-5.1); Sodium 135 mmol/L (136-145); Total Protein,Serum 6.8 g/dl (6.3-8.2); Triglycerides 186 mg/dl (30-150); VLDL Cholesterol 37 mg/dL (0-40)
[2024-12-21 19:08] LABS: Direct LDL Cholesterol 85.64 mg/dL (100-129)
[2024-12-21 19:13] LABS: Hemoglobin A1C 5.5 % (4.0-6.0)
[2024-12-21 19:30] LABS: Thyroid Stimulating Hormone 1.98 uIU/mL (0.465-4.68)
[2024-12-21 19:37] LABS: Iron 134 ug/dL (37-170)
[2024-12-21 19:50] LABS: Total Iron Binding Capacity 472 ug/dL (265-497)
[2024-12-21 20:15] LABS: Ferritin 12.8 ng/ml (6.24-137)
== END 2024-12-21 23:59 | disposition home or self-care (01) ==
LOC: LAB.DROPOF 12-22 11:24
PROVIDERS: PCP Family Medicine; Visit Provider Family Medicine
DX: R53.83 Other fatigue (principal); E04.1 Nontoxic single thyroid nodule; E66.811 Obesity, class 1; E78.2 Mixed hyperlipidemia; I10 Essential (primary) hypertension; E55.9 Vitamin D deficiency, unspecified; Z13.1 Encounter for screening for diabetes mellitus; D64.9 Anemia, unspecified
CPT/HCPCS: 80053; 80061; 82306; 82728; 83036; 83540; 83550; 84443; 85025

== ENCOUNTER 2025-03-05 10:04 | Outpatient (CLI) | payer MEDICARE, MEDICAID, SELFPAY ==
--- NOTE | 2025-03-05 10:08 | XR_ITS ---
FINAL REPORT TECHNIQUE: 3 views CLINICAL HISTORY: back pain COMPARISON: None FINDINGS: AP, lateral and odontoid views of the cervical spine were obtained. There is no prior exam for comparison. There is no acute fracture or malalignment. Vertebral body height is preserved. Moderate anterior osteophytes are noted at the C5-6 and C6-7 levels. There is reversal of lordosis of the cervical spine. The precervical soft tissues are normal. IMPRESSION: Degenerative changes as described, with no acute process. Reviewed, Interpreted and Dictated by Joel Goel MD Transcribed by Marylin Banks Authenticated and [facility]
--- NOTE | 2025-03-05 10:08 | XR_ITS ---
FINAL REPORT TECHNIQUE: Lumbar spine 3 views CLINICAL HISTORY: low back pain COMPARISON: None FINDINGS: AP and lateral views of the lumbar spine were obtained. There is no prior exam for comparison. There is no acute fracture. There is minimal degenerative spondylolisthesis of L4 on L5. Vertebral body height is preserved. There is moderate disc space narrowing at the L4-5 and L5-S1 levels. Prominent facet sclerosis is noted in the lower lumbar spine. No acute paraspinal abnormality. IMPRESSION: Degenerative change as described, without acute bony abnormality. Reviewed, Interpreted and Dictated by Joel Goel MD Transcribed by Marylin Banks Authenticated and [facility]
--- NOTE | 2025-03-05 10:08 | XR_ITS ---
FINAL REPORT CLINICAL HISTORY: hip pain COMPARISON: None FINDINGS: RIGHT HIP 3 views of the right hip demonstrate no acute fracture or dislocation. There is mild hypertrophic change of the acetabular margin. A small osteophyte is present projecting from the femoral head. The visualized bony structures are well aligned. No soft tissue abnormality is seen. IMPRESSION: Mild degenerative change, with no acute bony abnormality. Reviewed, Interpreted and Dictated by Joel Goel MD Transcribed by Marylin Banks Authenticated and [facility]
--- NOTE | 2025-03-05 10:08 | XR_ITS ---
FINAL REPORT CLINICAL HISTORY: hip pain COMPARISON: None FINDINGS: RIGHT HIP Two views of the right hip demonstrate no acute fracture or dislocation. The joint spaces appear normal. There are mild hypertrophic changes at the acetabular margin. A small osteophyte is noted on the femoral head. The visualized bony structures are well aligned. No soft tissue abnormality is seen. IMPRESSION: Degenerative change, with no acute bony abnormality. Reviewed, Interpreted and Dictated by Joel Goel MD Transcribed by Marylin Banks Authenticated and [facility]
--- OUTSIDE RECORDS SUMMARY | 2025-03-05 10:08 | XMS_ITS | Encounter Summary ---
Author Organization Healthcare Address [address] [place] [address] Care Team Providers Care Deer Farmer Name Role Phone Nitin Rose OD Primary Care Provider [phone] Encounter Details Date Type Department Care Team (Late st Contact Info) Description 04/13/2021 Ophth Exam [facility] [address] [place] [address] Kody Brewer MD [address] [address] Social History Tobacco Use Types Packs/Day Years Used Date Smoking Tobacco: Every Day Comments Unknown Sex and Gender Information Value Date Recorded Sex Assigned at Not on file Legal Sex Female 8:01 PM EDT Gender Identity Not on file Sexual Orientation Not on file COVID-19 Exposure Response Date Recorded In the last month, have you been in contact with someone who was confirmed or suspected to have Coronavirus / COVID-19? No / Unsure 04/13/2021 8:07 PM EDT documented as of this encounter Functional Status * Calculated C-SSRS Risk Score (Lifetime/Recent) Answer Date of Assessment Author No Risk Indicated 04/14/2021 7:20 AM EDT Jayne Schneider * Question Answer Date of Assessment Author 1. Wish to be (Past 1 Month) No 021 7:20 AM EDT Jayne Schneider 2. Non-Specific Active Suici yoan Thoughts (Past 1 Month) No 04/14/2021 7:20 AM EDT Idris Schneider 6. Suicidal Behavior (Lifetime) No 07/20/202 1 7:20 AM EDT Jayne Schneider documented as of this encounter Plan of Treatment Not on file documented as of this encounter Visit Diagnoses Not on filedocumented in this encounter Care Teams Deer Farmer Relationship Specialty Start Date End Date Nitin Rose OD [address] [place] [address] PCP - General 02/06/21 documented as of this encounter
--- OUTSIDE RECORDS SUMMARY | 2025-03-05 10:08 | XMS_ITS | Clinical Summary ---
Author Organization Healthcare Address [address] 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 Do not crush or chew. Active atorvastatin (Lipitor) 10 MG tablet Take 10 mg by mouth 1 (one) time each day in the morning. Active pantoprazole (ProtoNix) 40 MG EC tablet Take 40 mg by mouth 1 (one) time each day before breakfast. Do not crush, chew, or split. Active venlafaxine XR (Effoxor-XR) 150 MG 24 hr capsule Take 150 mg by mouth 1 (one) time each day in the morning. Do not crush or chew. Active traMADol (Ultram) 50 MG tablet Take 50 mg by mouth 2 (two) times a day if needed for severe pain. Active phentermine (Adipex-P) 37.5 MG tablet Take 1 tablet by mouth 1 (one) time each day. 02/17/2021 Active albuterol 108 (90 Base) MCG/ACT inhaler Inhale 2 puffs every 6 (six) hours if needed for wheezing. Active Active Problems Problem Noted Date Diagnosed Date Vision changes 04/14/2021 Essential hypertension 04/14/2021 Other hyperlipidemia 04/14/2021 Depression 04/14/2021 Family History 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 Relation Name Comments Diabetes Mother Relation Name Status Comments Mother Social History Tobacco Use Types Packs/Day Years Used Date Smoking Tobacco: Every Day Cigarettes Smokeless Tobacco: Never Alcohol Use Standard Drinks/Week Comments Not Currently 0 (1 standard drink = 0.6 oz pur e alcohol) Comments Unknown Sex and Gender Information Value Date Recorded Sex Assigned at Not on file Legal Sex Female 8:01 PM EDT Gender Identity Not on file Sexual Orientation Not on file Last Filed Vital Signs Vital Sign Reading Time Taken Comments Blood Pressure 121/85 04/14/2021 4:54 PM EDT Pulse 65 04/14/2021 4:54 PM EDT Temperature 36.3 C (97.4 F) 04/14/2021 4:54 PM EDT Respiratory Rate 18 04/14/2021 4:54 PM EDT Oxygen Saturation 99% 04/14/2021 4:54 PM EDT Inhaled Oxygen Concentration - - Weight 77.1 kg (170 lb) 04/14/2021 6:13 AM EDT Height 165.1 cm (5' 5 ) 04/14/2021 6:13 AM EDT Body Mass Index 28.29 04/14/2021 6:13 AM EDT Plan of Treatment Health Maintenance Due Date Last Done Comments [facility]-Depression Screening 1975 [facility]-/Child/Adol SDOH Screenings 1975 [facility]- SDOH Screenings 1993 [facility]-Adult SDOH Screenings 1993 [facility]-DTaP,Tdap,and Td Vaccines (1 - Tdap) 1994 [facility]-Hepatitis B Vaccines (1 of 3 - 19+ 3-dose series) 1994 [facility]-Pap Smear 12/24/2007 12/23/2004, 04/2001, 12/09/1998, Additional history exists [facility]-Cervical Cancer Screening 12/23/2009 [facility]-HPV/Cotest 12/23/2009 12/23/2004, 04/2001, 12/09/1998, Additional history exists CT Colonography 2020 Colonoscopy 2020 FIT-DNA 2020 FIT 2020 FOBT 2020 Sigmoidoscopy 2020 [facility]-Colorectal Cancer Screening 2020 [id number] Vaccine (1 - season) 2024 [facility]-Influenza Vaccine (Season Ended) 2025 [facility]-Zoster Vaccines (1 of 2) 2025 HPV Vaccines Aged Out No longer eligi ble based on patient's age to complete this topic [facility]-HIB Vaccines Aged Out No longer e ligible based on patient's age to complete this topic [facility]-Hepatitis A Vaccines Aged Out No longer eligible based on patient's age to complete this topic [facility]-IPV Vaccines Aged Out No longer e ligible based on patient's age to complete this topic [facility]-Pneumococcal Vaccine: Pediatrics (0 to 5 Years) and At-Risk Patients (6 to 49 Years) Aged Out No longer eligible based on patient's age to complete this topic [facility]-Rotavirus Vaccines Aged Out No lo nger eligible based on patient's age to complete this topic Procedures Procedure Name Priority Date/Time Associated Diagnosis Comments CYTO DATA CONVERSION Routine 12/23/2004 12:00 AM EST from Last 3 Months or Most Recently Relevant to Health Maintenance Results * Cytology (12/23/2004 12:00 AM EST) 12/23/2004 12/25/2004 12: 49 PM EST Narrative SUNQUEST - 12/30/2004 1:44 PM EDT [facility] MR #: [id number] [facility] NENITA SANCHEZ [place] [id number] 1975 (Age: 29) FW Collect Date: 12/23/2004 00:00 Receipt Date: 12/25/2004 12:49 Page 1 DEPARTMENT OF PATHOLOGY AND LABORATORY MEDICINE CYTOPATHOLOGY REPORT Email: [email or web address] ATTENDING MD/Practitioner: Batsheva Espana MD Service: PAT Location: OUTS Reported: 12/30/2004 13:44 Collected: 12/23/2004 00:00 INTERPRETATION THIN PREP (CERVICAL/VAGINAL): NEGATIVE FOR INTRAEPITHELIAL LESION OR MALIGNANCY. SATISFACTORY FOR EVALUATION; ENDOCERVICAL/ TRANSFORMATION ZONE COMPONENT PRESENT. Slide scanned and imaged by [employer] ThinPrep Imaging System with manual review of all selected francis. Electronically Signed Out By CHUNG Leslie (ASCP) CHUNG Leslie (ASCP) Cervical cytology is a screening test primarily for squamous cancers and precursors and has associated false negative and positive results. New technologies such as liquid based sampling may decrease but will not eliminate all false negative results. Regular screening and follow-up of unexplained clinical signs and symptoms are recommended to minimize false negative results. Please see the ASCCP website (www.asccp.org) for followup recommendations. If HPV testing was requested, correlation with the results is suggested (please call Microbiology at [phone] for results). CLINICAL INFORMATION: Menstrual History: Date of Last Menstrual Period: {Not Provided} SPECIMEN DESCRIPTION: A: THIN PREP (CERVICAL/VAGINAL) THIN PREP PROCESS CELLULAR ENHANCEMENT ICD: V76.2 CERVIX, SPECIAL SCREENING FOR MALIGNANT NEOPLASM F: A; RT IMAGE [id number] SNOMED CODES: A; [id number] In cases where a pathologist has signed out the report, the service has been rendered in part by a resident. The signing pathologist has performed and is responsible for the reported pathologic evaluation. us Historical Provider MD LAB PATHOLOGY ORDERABLES Final Result SUNQUEST from Last 3 Months or Most Recently Relevant to Health Maintenance Insurance MEDICARE [place]ICA[place] Care Teams Electric Tripper Machine Operator Relationship Specialty Start Date End Date Nitin Rose OD [address] [place] [address] PCP - General 02/06/21
[2025-03-05 10:42] LABS: Basophils % 0.5 % (0.1-2.0); Eosinophils # 0.1 Kmm3 (0.0-0.4); Eosinophils % 1.6 % (0.1-12.0); Hematocrit 38.4 % (37.0-47.0); Hemoglobin 12.6 g/dL (12.2-16.2); Immature Granulocytes # 0.02 10^3uL; Immature Granulocytes % 0.2 %; Lymphocytes % 24.2 % (10-50); Mean Corpuscular HGB Conc 32.8 g/dL (31.8-35.4); Mean Corpuscular Hemoglobin 27.7 pg (27.0-31.2); Mean Corpuscular Volume 84.4 fl (81-99); Mean Platelet Volume 9.4 fl (7.4-10.4); Monocytes # 0.6 K/mm3 (0.1-1.0); Monocytes % 7.5 % (1.7-9.3); Neutrophils # 5.4 K/mm3 (1.8-7.8); Nucleated Red Blood Cells # 0 10^3/uL; Nucleated Red Blood Cells % 0 %; Platelet Count 367 K/mm3 (142-424); Red Blood Count 4.55 M/mm3 (4.20-5.40); Red Cell Distribution Width 12.8 % (11.5-17.5); Red Cell Distribution Width-SD 39.1 fL; White Blood Count 8.2 K/mm3 (4.8-10.8)
[2025-03-05 11:09] LABS: Erythrocyte Sedimentation Rate 16 mm/hr (0-20)
[2025-03-05 11:31] LABS: Albumin Level 4.2 g/dl (3.5-5.0); Anion Gap 6.2 mEq/L (5-15); Calcium 9.3 mg/dl (8.4-10.2); Carbon Dioxide 28 mmol/L (22.0-30.0); Chloride 103 mmol/L (98-107); Glucose 79 mg/dl (74-100); Potassium 4.2 mmoL/L (3.5-5.1); Sodium 133 mmol/L (136-145)
[2025-03-05 12:04] LABS: Alanine Aminotransferase 20 U/L (12-78); Albumin/Globulin Ratio 1.6 (1.1-1.8); Alkaline Phosphatase 78 U/L (38-126); Aspartate Amino Transferase 25 U/L (14-36); Blood Urea Nitrogen 8 mg/dl (7-17); Estimated Glomerular Filt Rate 76 ml/min (>60); GFR (African American) 92 ML/MIN (>60); Globulin 2.7 g/dL (1.3-3.2); Total Protein,Serum 6.9 g/dl (6.3-8.2)
[2025-03-05 12:39] LABS: Ferritin 6.29 ng/ml (6.24-137)
[2025-03-05 13:39] LABS: Iron 56 ug/dL (37-170)
[2025-03-05 13:48] LABS: Total Iron Binding Capacity 478 ug/dL (265-497)
[2025-03-06 14:14] LABS: Anti-Centromere B Antibodies <0.2 AI (0.0-0.9); Anti-DNA (DS) Ab Qn 1 IU/mL (0-9); Anti-Jo-1 <0.2 AI (0.0-0.9); Anti-Smith Antibody <0.2 AI (0.0-0.9); Antichromatin Antibodies <0.2 AI (0.0-0.9); Antiscleroderma-70 Antibodies <0.2 AI (0.0-0.9); RNP Antibodies 0.4 AI (0.0-0.9); Sjogren's Anti-SS-A <0.2 AI (0.0-0.9); Sjogren's Anti-SS-B <0.2 AI (0.0-0.9)
[2025-03-10 18:09] LABS: PTH Related Peptide < 2.0 pmol/L (.)
== END 2025-03-05 23:59 | disposition home or self-care (01) ==
LOC: LAB 10:06
PROVIDERS: PCP Family Medicine; Visit Provider Family Medicine
DX: Z00.00 Encounter for general adult medical examination without abnormal findings (principal); M47.816 Spondylosis without myelopathy or radiculopathy, lumbar region; M16.0 Bilateral primary osteoarthritis of hip; M47.812 Spondylosis without myelopathy or radiculopathy, cervical region; E61.1 Iron deficiency; R22.0 Localized swelling, mass and lump, head
CPT/HCPCS: 36415; 72040; 72100; 73502; 80053; 82397; 82728; 83540; 83550; 85025; 85651; 86225; 86235

== ENCOUNTER 2025-04-09 13:56 | Emergency (ER) | payer MEDICARE, MEDICAID, SELFPAY ==
[2025-04-09 14:40] VITALS: BP 145/74; PULSE 90; RESP 17; TEMP 37.4; O2SAT 97; BMI 38.0
[2025-04-09 14:43] LABS: Coronavirus 19, PCR Not Detected (NotDetected); Influenza A, PCR Not Detected (NotDetected); Influenza B, PCR Not Detected (NotDetected)
--- NOTE | 2025-04-09 14:44 | XR_ITS ---
PROCEDURE INFORMATION: Exam: XR Chest Exam date and time: 04/09/2025 3:56 PM Age: 49 years old Clinical indication: Shortness of breath; Additional info: SOA TECHNIQUE: Imaging protocol: Radiologic exam of the chest. Views: 1 view. COMPARISON: CT CHEST W CON 04/24/2023 3:21 PM FINDINGS: Tubes, catheters and devices: Loop recorder projects over the left medial mid hemithorax. Lungs: No acute infiltrates.. Pleural spaces: There is no evidence for pneumothorax. Heart/Mediastinum: The heart size is within normal limits. Bones/joints: Unremarkable. IMPRESSION: 1. No acute infiltrates.. 2. There is no evidence for pneumothorax.
[2025-04-09 14:54] VITALS: BP 154/78; PULSE 92; TEMP 37.4
--- OUTSIDE RECORDS SUMMARY | 2025-04-09 14:55 | XMS_ITS | Clinical Summary ---
Author Organization [facility] [place] Address [address] [place] [address] Phone Care Team Providers Care Cereal Maker Name Role Phone Osmani Valladares MD Unavailable [phone] Allergies No known active allergies Medications atorvastatin calcium (ATORVASTATIN ORAL) Take by mouth daily. Active cholecalciferol, vitamin D3, 10 mcg (400 unit) Oral Tablet Take 1 Tablet by mouth daily. Active lisinopriL (PRINIVIL;ZESTRI L) 10 mg Oral Tablet Take 10 mg by mouth daily. Active metoprolol succinate ER (TOPROL-XL) 100 mg Oral Tablet Sustained Release 24 hr Take 100 mg by mouth daily. Active pantoprazole (PROTONIX) 40 mg Oral Tablet, Delayed Release (E.C.) Take 40 mg by mouth daily. Active phentermine (ADIPEX-P) 37.5 mg Oral Tablet Take 37.5 mg by mouth as needed. Active traMADoL (ULTRAM) 50 mg Oral Tablet Take by mouth every 6 hours as needed for Pain. Active valacyclovir HCl (VALACYCLOVIR ORAL) Take 1,000 mg by mouth as needed. Active venlafaxine (EFFEXOR-XR) 150 mg Oral Capsule, Sust. Release 24 hr Take 150 mg by mouth daily. Active venlafaxine (EFFEXOR-XR) 75 mg Oral Capsule, Sust. Release 24 hr Take 75 mg by mouth daily. Active Active Problems Problem Noted Date Diagnosed Date Status post placement of implantable loop record er 05/19/2021 Overview (05/19/2021): [employer] LUX-Dx ILR implanted by Fuad Roper @ [facility] on 01/01/21 Heart palpitations 05/13/2021 Essential hypertension 04/14/2021 Other hyperlipidemia 04/14/2021 Depression 04/14/2021 SVT (supraventricular tachycardia) 03/16/2018 Overview (08/25/2021): SVT ablation 06/08/2021- Dr. Valladares Surgical History Surgery Date Site/Laterality Comments ABLATION OF DYSRHYTHMIC FOCUS 06/08/2021 SVT ablation- Dr. Valladares 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 Date Comments PSVT (paroxysmal supraventricular tachycardia) Heart palpitations Social History Tobacco Use Types Packs/Day Years Used Date Smoking Tobacco: Every Day Cigarettes 1 24.5 Started: 2000 Smokeless Tobacco: Never Comments Unknown Sex and Gender Information Value Date Recorded Sex Assigned at Not on file Legal Sex Female 3:01 PM EDT Gender Identity Not on file Sexual Orientation Not on file Obstetrics History Last Filed Vital Signs Vital Sign Reading Time Taken Comments Blood Pressure 110/74 06/08/2021 5:00 PM EDT Pulse 64 06/08/2021 5:00 PM EDT Temperature 36.6 C (97.8 F) 06/08/2021 12:14 PM EDT Respiratory Rate 15 06/08/2021 5:00 PM EDT Oxygen Saturation 94% 06/08/2021 5:00 PM EDT Inhaled Oxygen Concentration - - Weight 80.5 kg (177 lb 7 oz) 06/08/2021 12:14 PM EDT Height 160 cm (5' 3 ) 06/08/2021 12:14 PM EDT Body Mass Index 31.43 06/08/2021 12:14 PM EDT Plan of Treatment Health Maintenance Due Date Last Done Comments Wellness Exam Medicare 1978 DTaP/TDaP/Td (1 - Tdap) 1994 Hepatitis B Vaccine (1 of 3 - 19+ 3-dose series) 1994 Cervical Cancer Screening 1996 Pap Smear 1996 HPV/Pap Cotest 2005 Breast Cancer Screening 2015 Cologuard 2020 Colon Cancer Screening 2020 Colonoscopy 2020 FIT 2020 Sigmoidoscopy 2020 Virtual Colonography 2020 COVID-19 Vaccine (2023-2 5 season) 2024 Influenza Vaccine (#1) 2025 Meningococcal B Vaccine Aged Out No l onger eligible based on patient's age to complete this topic Pneumococcal Vaccine 0-49 Aged Out No longer eligible based on patient's age to complete this topic Medical Devices Implanted Type Area Pig Farm Manager Device Identifier Shelf Expiration Date Model / Serial / Lot Loop [employer] Lux DX / [id number] / Insurance [place] [address] MEDICAID [place] [address] MEDICAID [place] Care Teams Cereal Maker Relationship Specialty Start Date End Date Osmani Valladares MD [address] [place] [address] [place] [address] Consulting Physician Internal Medicine - Clinical Cardiac Electrophysiology 03/07/18
--- OUTSIDE RECORDS SUMMARY | 2025-04-09 14:56 | XMS_ITS | Data Portability ---
Author Organization [facility] Address [address] [place] [address] Assessment No assessment recorded. Plan of Treatment Reminders Order Date Submit Date Provider Last Modified By Organization Details Last Modified Time Details Appointments None recorded. Lab CMP, serum or plasma 2022 023 [email or web address] [facility] (Laboratory), [address] [place], [address], 3 10:47:48 CBC w/ auto diff 2022 023 [email or web address] 0 [facility] (Laboratory), [address] [place], [address], 3 08:27:25 TSH, serum or plasma 2022 023 [email or web address] 0 [facility] (Laboratory), [address] [place], [address], 3 10:47:04 lipid panel, serum 2022 023 [email or web address] 0 [facility] (Laboratory), [address] [place], [address], 3 08:27:26 Referral pain management referral 2022 023 [email or web address] 0 Not available 10:08:12 Procedures None recorded. Surgeries None recorded. Imaging XR, lumbar spine 2022 023 [email or web address] 0 [facility] (X-Ray), [address], [place], [address], 3 08:12:22 Medication Orders Lexapro 10 mg tablet [email or web address] [facility] [address] [place], [address], 3 09:55:50 Effexor XR 75 mg capsule,ext ended release 2022 023 [facility] [address] [place], [address], 3 09:52:14 Patient TargetsNo targets recorded. Patient InstructionsNo instructions recorded. Reason for Referral Pain Management Referral for Chronic low back pain Referring Physician: Adrian Vazquez, Family Medicine, Encounter Date: 12/30/2022 Medical Equipment None Reported. Allergies No known drug allergies Medications Name Sig Start Date Stop Date Status Note LastModified by Organization Details LastModified Time venlafaxine ER 75 mg capsule,exte nded release 24 hr TAKE 1 CAPSULE BY MOUTH ONCE DAILY active Not Available Not Available No t Available atorvastatin 10 mg tablet TAKE 1 TABLET BY MOUTH AT BEDTIME FOR HIGH CHOLESTEROL active Not Available Not Available Not Available azithromycin 250 mg tablet TAKE 2 TABLETS BY MOUTH ON DAY 1, AND THEN TAKE 1 TABLET BY MOUTH ONCE A DAY ON DAY 2 THROUGH DAY 5 active Not Available Not Available No t Available clonazepam 0.5 mg tablet TAKE 1 TABLET BY MOUTH TWICE DAILY active Not Available Not Available No t Available tramadol 50 mg tablet TAKE 1 TABLET BY MOUTH TWICE DAILY FOR PAIN active Not Available Not Available No t Available lisinopril 10 mg tablet TAKE 1 TABLET BY MOUTH ONCE DAILY FOR HIGH BLOOD PRESSURE active Not Available Not Available No t Available methylpredni solone 4 mg tablets in a dose pack TAKE DIRECTED active Not Available Not Available No t Available albuterol sulfate HFA 90 mcg/actuatio n aerosol inhaler INHALE 2 PUFFS BY MOUTH EVERY 6 HOURS NEEDED FOR SHORTNESS OF BREATH OR WHEEZING active Not Available Not Available Not Available amoxicillin 875 mg-potassium clavulanate 125 mg tablet active Not Available Not Available Not Available escitalopram 10 mg tablet TAKE 1 TABLET BY MOUTH ONCE DAILY active Not Available Not Available No t Available cholecalcife rol (vitamin D3) 1,250 mcg (50,000 unit) capsule TAKE 1 CAPSULE BY MOUTH ONCE A WEEK active Not Available Not Available No t Available Vitals Date Recorded Body height Body temperature Oxygen saturation Oxygen saturation in Arterial blood by Pulse oximetry Heart rate Respiratory rate Systolic And Diastolic Provider Name and Address Organization Details Last Updated DateTime 3 162.56 cm 97.8 [degF] 95 % 95 % 80 /min 18 /min 148/84 mm[Hg] Eric Boyce [place] [facility] - [place] & [place] 3 09:23:34 Social History None recorded. Functional Status None recorded. Mental Status None recorded. Family History Nothing Reported. 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 No medical history recorded. Gynecological HistoryNo gynecological history recorded. Obstetrics History GPAL:G 0 P 0 0 0 0 Past Encounters Encounter ID Performer Location Encounter Start Date Encounter Closed Date Diagnosis/Indication Diagnosis SNOMED-CT Code Diagnosis ICD10 Code Diagnosis Note [id number] Adrian Vazquez MD [facility] [address] [address] 12/30/2022 09:03:56 12/30/2022 16:21:37 Essential hypertension 00441081 I10 Blood pressure slightly elevated today patient does have cuff and recommend she take it at home after resting. Continue lisinopril . We will check blood work. See back in 2 months. Hyperlipidemia 79456655 E78.5 Continue atorvastat in. We will check blood work. Chronic low back pain 27 1389041 M54.50 Recommend repeat lumbar spine x-rays and referral to pain management . Patient is agreeable Mixed anxi ety and depressive disorder [id number] F41.8 Patient has been without medicines for about a week and a half. She states these medicines were well for her. She has been on Klonopin. I explained that this was a controlled substance and would not be able to prescribe this. We will refer to chronic pain management for treatment of pain issues. Legal blindness [id number] H54.8 Patient reports vision is 20/400-20/ 500. She has history of optic neuritis. She sees Ophthalmol ogy for this. Supraventr icular tachycardia 0239441 I47.1 patient has had an ablation and is followed by cardiologi at [facility]. She states she is on lisinopril to help her blood pressure control. Recommend continuing follow-up with them. She is not had any recent episodes. Health Concerns Section Related Observation LastModified by Organization Detai ls LastModified Time None Recorded Concern Status LastModified by Organization Details LastModified Time None Recorded Advance Directives Directive None Recorded Payers Insurance Date Sequence Insurance Name Policy Number Policy Castaneda Covered Member ID Castaneda Member ID Guarantor Name 12/30/2022 1 [employer] (MEDICARE REPLACEMENT/A DVANTAGE - HMO) Nenita Sanchez [id number] Nenita Sanchez Notes Date Note Type Note Provider Name and Address Organization Details Recorded Time 12/30/2022 text/html 47-year-old femaddie canchola new patient. Patient is here to become established. 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 Vision is 20/400.Patient also has hypertension, hyperlipidemia, chronic anxiety and depression, chronic low back pain. She brings in medical records for review.Patient has been on tramadol and clonazepam. We discussed the need for pain specialist management with these medications.Patient also has a history of SVT she is had an ablation. Apparently did not completely resolve the issue she is had intermittent episodes. But they have not been frequent. She is followed by Cardiology and Renata Pace.Patient has a history of asthma and is on an albuterol inhaler. She has a 30 pack smoking history. She is not been told she has COPD.Patient has no overt symptoms. She has been out of her Lexapro and Effexor for about a week and half and needs prescriptions for these. Adrian Vazquez MD [address] [place] [address], [phone], [facility] [place] [facility] [place] 12/30/2022 10:23:31 OBGyn Episode No OBEpisode recorded.
--- OUTSIDE RECORDS SUMMARY | 2025-04-09 14:56 | XMS_ITS | Encounter Summary ---
Author Organization Healthcare Address [address] [place] [address] Care Team Providers Care Insulation Estimator Name Role Phone Nitin Rose OD Primary Care Provider [phone] Encounter Details Date Type Department Care Team (Late st Contact Info) Description 04/13/2021 Ophth Exam [facility] [address] [place] [address] Kody Brewer MD [address] [address] Social History Tobacco Use Types [...] (Lifetime) No 07/20/202 1 7:20 AM EDT Jyane Schneider documented as of this encounter Plan of Treatment Not on file documented as of this encounter Visit Diagnoses Not on filedocumented in this encounter Care Teams Insulation Estimator Relationship Specialty Start Date End Date Nitin Rose OD [address] [place] [address] PCP - General 02/06/21 documented as of this encounter
--- OUTSIDE RECORDS SUMMARY | 2025-04-09 14:56 | XMS_ITS | Clinical Summary ---
Author Organization Healthcare Address [address] [place] [address] Care Team Providers Care Clinical Services Consultant Name Role Phone Nitin Rose OD Primary Care Provider [phone] Allergies No known active allergies Medications metoprolol [...] 2020 Sigmoidoscopy 2020 [facility]-Colorectal Cancer Screening 2020 IFL-DIQUU-24 Vaccine (1 - season) 2024 [facility]-Influenza Vaccine (#1) 2025 [facility]-Zoster Vaccines (1 of 2) 2025 [...] Narrative SUNQUEST - 12/30/2004 1:44 PM EDT [facility] MR #: [id number] [facility] NENITA [place] [id number] 1975 (Age: 29) FW Collect Date: 12/23/2004 00:00 Receipt Date: 12/25/2004 12:49 Page 1 DEPARTMENT OF PATHOLOGY AND LABORATORY MEDICINE CYTOPATHOLOGY REPORT Email: [email or web address] [phone] ATTENDING MD/Practitioner: Batsheva Espana MD Service: PAT Location: OUTS Reported: 12/30/2004 13:44 Collected: 12/23/2004 00:00 INTERPRETATION THIN PREP (CERVICAL/VAGINAL): NEGATIVE FOR INTRAEPITHELIAL LESION OR MALIGNANCY. SATISFACTORY FOR EVALUATION; ENDOCERVICAL/ TRANSFORMATION ZONE COMPONENT PRESENT. Slide scanned and imaged by [employer] ThinPrep Imaging System with manual review of [...] results is suggested (please call Microbiology at [phone] for results). CLINICAL INFORMATION: Menstrual History: Date of Last Menstrual Period: {Not Provided} SPECIMEN DESCRIPTION: A: THIN PREP (CERVICAL/VAGINAL) THIN PREP PROCESS CELLULAR ENHANCEMENT ICD: V76.2 CERVIX, SPECIAL SCREENING FOR MALIGNANT NEOPLASM F: A; RT IMAGE [id number] SNOMED CODES: A; [id number] In cases where a pathologist has signed out the report, the service has been rendered in part by a resident. The signing pathologist has performed and is responsible for the reported pathologic evaluation. us Historical Provider MD LAB PATHOLOGY ORDERABLES Final Result SUNQUEST from Last 3 Months or Most Recently Relevant to Health Maintenance Insurance MEDICARE [place]ICAID-[place] Care Teams Clinical Services Consultant Relationship Specialty Start Date End Date Nitin Rose OD [address] [place] [address] PCP - General 02/06/21
--- OUTSIDE RECORDS SUMMARY | 2025-04-09 14:57 | XMS_ITS | Encounter Summary ---
Author Organization [place] [address] Care Team Providers Care Oxygen Equipment Technician Name Role Phone Osmani Valladares MD Unavailable Encounter Details Date Type Department Care Team (Late st Contact Info) Description 06/08/2021 Orders Only [facility] [address] [place] [address] Osmani Valladares MD [address] [place] [address] Social History Tobacco Use Types Packs/Day Years [...] have Coronavirus / COVID-19? No / Unsure 05/19/2021 2:41 PM EDT documented as of this encounter Plan of Treatment Not on file documented as of this encounter Procedures Procedure Name Priority Date/Time Associated Diagnosis Comments EP LAB RECORDINGS Routine 06/08/2021 1:13 PM EDT documented in this encounter Results * EP LAB RECORDINGS (06/08/2021 1:13 PM EDT) 06/08/2021 1:13 PM EDT us Osmani Valladares MD CARDIAC CATH ORDERABLES Final Result [facility] [address] [place] [address] documented in this encounter Visit Diagnoses Not on filedocumented in this encounter Care Teams Oxygen Equipment Technician Relationship Specialty Start Date End Date Osmani Valladares MD [address] [place] [address] Consulting Physician Internal Medicine - Clinical Cardiac Electrophysiology 03/07/18 documented as of this encounter
--- OUTSIDE RECORDS SUMMARY | 2025-04-09 14:57 | XMS_ITS ---
Laboratory report Created on: March 12, 2025 SAMARA HUGO : 1975 Sex: Female Author Organization Unknown PROBLEMS Problems List Code Description RESULTS Laboratory Orders Date Order Code Test 2025-03-05 [id number] ANTINUCLEAR AB 9 BY MULTIPLEX 2025-03-05 [id number] PTHRP (PTH-RELAT ED PEPTIDE) Laboratory Results Date LOINC Test Value Unit Reference Range Interpre tation 2025-03-05 5130-0 ANTI-DNA (DS) AB QN 1 IU/ML 0-9 2025-03-05 96173-1 BILLING SPEC ANTIBODIES .4 AI 0.0-0.9 2025-03-05 12254-9 TAY ANTIBODIES <0.2 AI 0.0-0.9 2025-03-05 92487-5 ANTISCLERODERMA- 70 ANTIBODIES <0.2 AI 0.0-0.9 2025-03-05 65601-4 SJOGREN'S ANTI-SS-A <0.2 AI 0.0-0.9 2025-03-05 97305-1 SJOGREN'S ANTI-SS-B <0.2 AI 0.0-0.9 2025-03-05 62865-1 ANTICHROMATIN ANTIBODIES <0.2 AI 0.0-0.9 2025-03-05 39694-9 ANTI-RACHELLE-1 <0.2 AI 0.0-0.9 2025-03-05 40906-2 ANTI-CENTROMERE B ANTIBODIES <0.2 AI 0.0-0.9 2025-03-05 25722-0 PTHRP (PTH-RELAT ED PEPTIDE) <2.0 PMOL/L
--- NOTE | 2025-04-09 14:59 | ECG_ITS ---
APPROVED REPORT Exam: Resting ECG HR:87 bpm ECG Measurements Heart Rate 87 AXES WV 141 P 58 QRSd 82 QRS 71 QT 292 T 74 QTc 337 Conclusion SINUS RHYTHM NONSPECIFIC T-WAVE ABNORMALITY BORDERLINE ECG UNCONFIRMED REPORT Electronically signed by : Celestino Peterson, 04/09/2025 23:29:39
--- NOTE | 2025-04-09 15:14 | ED_ITS ---
<Statement entered by Klaudia Parker DO - 04/10/25 08:51> I was consulted by the STORM, and we discussed the complexity of problems being addressed. I approve the treatment and management plan for this patient's care in the emergency department, thus performing a substantial portion of the medical decision making. Klaudia Parker DO Discharge Plan Disposition Patient Disposition: Home, Self-Care Prescriptions Prescriptions: New Spiriva Respimat 2.5 mcg/actuation mist 2 inh inhalation DAILY Qty: 4 0RF prednisone 20 mg tablet 20 mg PO BID 5 Days Qty: 10 0RF doxycycline hyclate 100 mg tablet 100 mg PO BID 7 Days Qty: 14 0RF No Action ergocalciferol (vitamin D2) 1,250 mcg (50,000 unit) capsule PO Patient Comments: TAKE 1 CAPSULE BY MOUTH ONCE A WEEK albuterol sulfate 90 mcg/actuation HFA aerosol inhaler inhalation Patient Comments: INHALE 2 PUFFS BY MOUTH EVERY 6 HOURS NEEDED FOR SHORTNESS OF BREATH FOR WHEEZING Vraylar 3 mg capsule PO Patient Comments: TAKE 1 CAPSULE BY MOUTH ONCE DAILY omeprazole 40 mg capsule,delayed release(DR/EC) 40 mg PO DAILY Qty: 30 2RF venlafaxine 150 mg capsule,extended release 24hr 150 mg PO DAILY Qty: 90 2RF valacyclovir [Valtrex] 1 gram tablet 1,000 mg PO BID Qty: 30 2RF atorvastatin 20 mg tablet 20 mg PO HS Qty: 90 2RF tramadol 50 mg tablet 50 mg PO DAILY Qty: 30 0RF ferrous sulfate [FeroSul] 325 mg (65 mg iron) tablet 325 mg PO DAILY Patient Comments: TAKE 1 TABLET BY MOUTH ONCE DAILY lisinopril 10 mg tablet 10 mg PO DAILY Patient Comments: TAKE 1 TABLET BY MOUTH ONCE DAILY Referrals Follow up/Referrals: Provider,Referral, MD [Primary Care Provider, Medical] - See instructions Clinical Impressions Clinical Impression: Acute lower respiratory tract infection Instructions Patient Instructions: DI for Chronic Bronchitis Print Language Print Language: Surinamese Discharge ED Provider: Pradeep Peterson [facility] General Chief Complaint: Shortness of Breath/Dyspnea Stated Complaint: possible covid and pneumonia Time Seen by Provider: 04/09/25 14:55 Mode of Arrival: Ambulatory Source of Information: Patient Description of Symptoms (Recalled from ER Triage Doc. by RN): PATIENT REPORTS SHE WANTED TO BE TESTED FOR COVID. PATIENT REPORTS SHE IS SOA AND FEELS LIKE HER LUNGS ARE TIGHT. PATIENT REPORTS PRODUCTIVE BROWN COUGH. REPORTS SYMPTOMS HAVE BEEN GOING ON FOR ABOUT 4 DAYS. REPORTS FEVER AND CHILLS. History of Present Illness HPI narrative: 49-year-old female presents to the ED today for complaint of shortness of breath and feels like his lungs are tight, fever, cough, thick sputum, fever and chills. Symptoms have been going on for 4 days. She does want swab for COVID and flu. Patient is wheezing and says her inhaler that is her rescue inhaler does not work. She wants a daily inhaler. Patient has long history of health problems. Related Data Home Medications ?Medication ?Instructions ?Recorded ?Confirmed ferrous sulfate 325 mg (65 mg 325 mg PO DAILY 09/21/24 03/12/25 iron) tablet (FeroSul) lisinopril 10 mg tablet 10 mg PO DAILY 09/21/2402/24 albuterol sulfate 90 mcg/actuation inhalation 03/12/25 03/12/25 aerosol inhaler cariprazine 3 mg capsule (Vraylar) mg PO 03/12/2502/24 ergocalciferol (vitamin D2) 1,250 PO 03/12/25 03/12/25 mcg (50,000 unit) capsule Previous Rx's ?Medication ?Instructions ?Recorded valacyclovir 1 gram tablet 1,000 mg PO BID #30 tabs (Valtrex) venlafaxine 150 mg 150 mg PO DAILY #90 caps capsule,extended release 24 hr atorvastatin 20 mg tablet 20 mg PO HS #90 tabs 5 omeprazole 40 mg capsule,delayed 40 mg PO DAILY #30 ca ps 03/12/25 release doxycycline hyclate 100 mg tablet 100 mg PO BID 7 days #14 tabs 04/09/25 prednisone 20 mg tablet 20 mg PO BID 5 days #10 tabs 04/09/25 tiotropium bromide 2.5 2 inh inhalation DAILY #4 gr ams 04/09/25 mcg/actuation mist for inhalation (Spiriva Respimat) tramadol 50 mg tablet 50 mg PO DAILY #30 tabs 03/26 02/17 Allergies Allergy/AdvReac Type Severity Reaction Status Date / Time No Known Allergies Allergy Verified 03/12/25 13:45 [facility] Disclaimer: The information contained in this section may have been updated after the patient was seen, as this information can be updated by other users. 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 (Updated 04/09/25 @ 17:33 by Shandra Cabral (ED), ASSISTANT STORE DIRECTOR) Vocal cord edema Hoarseness Sinusitis Bronchitis Stress incontinence Postoperative pain Axillary abscess Chronic cough Depression History of anemia Abscess Foot pain, left Mass of soft tissue of left lower extremity Pharyngitis Bronchitis Tachycardia Hypertensive urgency Scalp abrasion Abrasion of right foot or toe Abrasion of right ankle Sacral contusion Otitis media SVT (supraventricular tachycardia) Dehydration PTSD (post-traumatic stress disorder) Anxiety SVT (supraventricular tachycardia) Overweight Chest pain Hyperlipidemia Lymphadenopathy Hypokalemia PSVT (paroxysmal supraventricular tachycardia) Hypertension Vitamin D deficiency Herpes labialis Toenail fungus Asthma Retinopathy Restless leg syndrome Surgical History History of loop recorder History of surgery Hx of tubal ligation Hx of section S/P ACL repair Hx of tonsillectomy Family History Other No significant family history Social History Smoking Status: Current every day smoker tobacco type: cigarettes packs per day: 1 years smoked: 25 second hand exposure: No alcohol intake: never substance use type: denies use current occupational status: disabled Travel in the last 8 weeks?: None housing: house 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 current occupational exposures/hazards: No caffeine: Yes Have you lived/traveled outside US in past 30 days?: No Contact w/someone who lives/traveled outside US past 30 days?: No Exposure to someone with infectious disease in past 14 days?: No Do you have a fever (greater than 100.4 F or 38 C)?: No Have you tested positive for COVID-19?: No Exposed to someone with COVID-19 in past 14 days?: No Do you have a sore throat?: No Do you have a cough?: No Do you have any weakness?: Yes Do you have any diarrhea?: No Are you experiencing any unusual bleeding?: No Do you have any muscle aches/pain?: Yes Do you have any abdominal pain?: No Are you experiencing loss of taste or smell?: Yes Other 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 Have you received the Flu Vaccine for this season: No Have you received the Pneumonia Vaccine: No ROS Obtained: Yes Systems reviewed as appropriate & no additional complaints except as documented Constitutional Constitutional: Reports as per HPI Physical Exam General General appearance: alert and in distress Head Head exam: normocephalic Eye Eye exam: Present normal appearance, PERRL and EOMI ENT ENT exam: Present normal oropharynx and mucous membranes moist Neck Neck exam: Present full ROM and trachea midline Respiratory Respiratory exam: Present wheezes Cardiovascular Cardiovascular exam: Present regular rate, normal rhythm, normal heart sounds, +S1 and +S2 Abdominal Exam Abdominal exam: Present soft and normal bowel sounds Extremities Exam Extremities exam: Present normal inspection, full ROM and normal capillary refill Neurological Exam Neurological exam: Present alert, oriented X3 and normal gait Skin Skin exam: Present warm, dry and intact HEART Score HEART Score HEART Score assessment performed?: Yes History (anamnesis): Slightly suspicious ECG: Normal Age: 45-65 years Risk factors: No known risk factors Troponin: </= normal limit HEART Score: 1 Critical Care Critical Care Time Critical Care Time: No Medical Decision Making Ezequiel Inquiry Pt receiving controlled substance: No Ezequiel was queried for this patient: No Vital Signs Vital Signs: 04/09/25 14:40 04/09/25 14:54 04/09/25 15:44 Temperature 99.3 F 99.3 F Temperature Source Oral Oral Pulse Rate 92 H 86 Pulse Rate [Left Brachial] 90 Respiratory Rate 17 Blood Pressure 154/78 H Blood Pressure [Left Arm] 145/74 H Blood Pressure Mean [Left Arm] 97 Blood Pressure Source Blood Pressure Source [Left Arm] Automatic Cuff Blood Pressure Position Blood Pressure Position [Left Arm] Sitting 02 Sat by Pulse Oximetry 97 Oxygen Delivery Method Room Air 04/09/25 15:44 04/09/25 17:45 Temperature 98.3 F Temperature Source Oral Pulse Rate 82 80 Pulse Rate [Left Brachial] Respiratory Rate 18 Blood Pressure 148/70 H Blood Pressure [Left Arm] Blood Pressure Mean [Left Arm] Blood Pressure Source Automatic Cuff Blood Pressure Source [Left Arm] Blood Pressure Position Sitting Blood Pressure Position [Left Arm] 02 Sat by Pulse Oximetry Oxygen Delivery Method Room Air Lab Data Labs: Lab Results 04/09/25 14:40: SARS-CoV-2 (PCR) Not detected, Influenza A Untype (PCR) Not detected, Influenza Type B (PCR) Not detected 04/09/25 15:27: WBC 9.5, RBC 4.70, Hgb 12.2, Hct 38.0, MCV 80.9 L, MCH 26.0 L, MCHC 32.1, RDW 14.4, Plt Count 358, MPV 9.5, Neut % (Auto) 79.4, Lymph % (Auto) 13.9, [place] % (Auto) 4.7, Eos % (Auto) 1.3, Baso % (Auto) 0.4, Neut # (Auto) 7.5, Lymph # (Auto) 1.3, [place] # (Auto) 0.5, Eos # (Auto) 0.1, Baso # (Auto) 0.0, S odium 135 L, Potassium 4.1, Chloride 100, Carbon Dioxide 22, Anion Gap 17.1 H, B UN 3 L, Creatinine 0.60, Estimated Creat Clear 169, Estimated GFR 106, Est GFR ( Amer) 129, Glucose 115 H, Calcium 9.7, Total Bilirubin 0.9, AST 29, ALT 24, Alkaline Phosphatase 124, Troponin I < 0.01, Total Protein 8.0, Albumin 4.4, Globulin 3.6 H, Albumin/Globulin Ratio 1.2, HCV Ab RAINA w/Rflx PCR Qn Negative, HIV Ag/Ab Combo Qual Negative 04/09/25 15:27 04/09/25 15:27 Response Orders (Tests/Meds): ED MEDICATIONS Discontinued Medications Generic Name Dose Route Start Last Admin Trade Name Freq PRN Reason Stop Dose Admin Albuterol/Ipratropium 3 ml 04/09/25 14:44 04/09/25 15:39 Ipratropium/Albuterol 3 Ml [facility] 04/09/25 14:45 3 ml ONCE ONE Administration Albuterol/Ipratropium 9 ml 04/09/25 15:12 Ipratropium/Albuterol 3 Ml Neb 04/09/25 15:13 ONCE ONE Dexamethasone Sodium Phosphate 8 mg 04/09/25 15:12 04/09/25 15:37 Dexamethasone 4mg/Ml 1ml Vial IV 04/09/25 15:13 8 mg ONCE ONE Administration Magnesium Sulfate 2 gm in 50 mls @ 50 mls/hr 04/09/25 15:12 04/09/25 15:37 Magnesium Sulfate 2gm/50ml Premix IV 04/09/25 16:11 50 mls/hr ONCE ONE Administration Sodium Chloride 10 ml 04/09/25 14:48 Sodium Chloride 0.9% 10ml Flush Syringe IV 05/09/25 14:47 NEEDED PRN Maintain IV Site ORDERS Category Date Time Status XR chest portable Stat Exams 04/09/25 14:44 Completed Complete Blood Count Auto Diff Stat Lab 04/09/25 15:27 Completed Comprehensive Metabolic Panel Stat Lab 04/09/25 15:27 Completed HIV Combo Routine Lab 04/09/25 15:27 Completed Hepatitis C Ab Qual. W/ RFX Routine Lab 04/09/25 15:27 Completed Rapid PCR Covid and Flu A/B Stat Lab 04/09/25 14:40 Completed Troponin I Stat Lab 04/09/25 15:27 Completed MDM Narrative Medical Decision Narrative: patient is a 49-year-old female presenting to the emergency department for evaluation of shortness of breath, fever, body aches and thick sputum for the past 4 days. Patient is hemodynamically stable and nontoxic-appearing upon arrival, afebrile. Differential diagnosis includes bronchitis, pneumonia, COVID or flu, COPD among others. Workup will be conducted with hematologic labs, specific imaging. Initial inventions include crystalloid bolus, analgesics. Initial workup reviewed by me hematologic labs are remarkable for nothing acute. Imaging informally interpreted by me and remarkable for nothing acute. Formal imaging read remarkable for no infiltrates. Upon repeat evaluation patient's pain is improved. Patient will be discharged with medication for cough if and nausea. And a daily inhaler. Patient safe for discharge home. Discussed with Dr. Peterson.
[2025-04-09 15:34] LABS: Hematocrit 38.0 % (37.0-47.0); Hemoglobin 12.2 g/dL (12.2-16.2); Immature Granulocytes % 0.3 %; Mean Corpuscular HGB Conc 32.1 g/dL (31.8-35.4); Mean Corpuscular Hemoglobin 26.0 pg (27.0-31.2); Mean Corpuscular Volume 80.9 fl (81-99); Nucleated Red Blood Cells % 0 %; Platelet Count 358 K/mm3 (142-424); Red Blood Count 4.70 M/mm3 (4.20-5.40); Red Cell Distribution Width-SD 41.2 fL; White Blood Count 9.5 K/mm3 (4.8-10.8)
[2025-04-09] MEDS: DEXAMETHASONE 4MG/ML 1ML VIAL 8 MG IV (15:37)
[2025-04-09] MEDS: MAGNESIUM SULFATE IN WATER 2 GM/50 ML PIGGYBACK IV (15:37)
[2025-04-09] MEDS: IPRATROPIUM/ALBUTEROL 3 ML NEB IH (15:39)
[2025-04-09 15:43] LABS: Alanine Aminotransferase 24 U/L (12-78); Albumin Level 4.4 g/dl (3.5-5.0); Albumin/Globulin Ratio 1.2 (1.1-1.8); Alkaline Phosphatase 124 U/L (38-126); Anion Gap 17.1 mEq/L (5-15); Aspartate Amino Transferase 29 U/L (14-36); Bilirubin,Total 0.9 mg/dl (0.2-1.3); Blood Urea Nitrogen 3 mg/dl (7-17); Calcium 9.7 mg/dl (8.4-10.2); Carbon Dioxide 22 mmol/L (22.0-30.0); Chloride 100 mmol/L (98-107); Creatinine Clearance Estimated 169 mL/min (50-200); Creatinine,Serum 0.60 mg/dl (0.52-1.04); Estimated Glomerular Filt Rate 106 ml/min (>60); GFR (African American) 129 ML/MIN (>60); Globulin 3.6 g/dL (1.3-3.2); Glucose 115 mg/dl (74-100); Potassium 4.1 mmoL/L (3.5-5.1); Sodium 135 mmol/L (136-145); Total Protein,Serum 8.0 g/dl (6.3-8.2)
[2025-04-09 15:44] VITALS: PULSE 82; PULSE 86
[2025-04-09 16:01] LABS: Troponin I < 0.01 ng/ml (0.00-0.034)
[2025-04-09 17:17] LABS: Hepatitis C Ab Qual. W/ RFX NEGATIVE (Negative)
[2025-04-09 17:45] VITALS: BP 148/70; PULSE 80; RESP 18; TEMP 36.8; O2SAT 97
== END 2025-04-09 17:45 | disposition home or self-care (01) ==
PROVIDERS: Student in an Organized Health Care Education/Training Program; Emergency Provider Student in an Organized Health Care Education/Training Program
DX: R06.02 Shortness of breath (principal); J22 Unspecified acute lower respiratory infection; F17.210 Nicotine dependence, cigarettes, uncomplicated; I10 Essential (primary) hypertension; E78.5 Hyperlipidemia, unspecified
CPT/HCPCS: 71045; 80053; 84484; 85025; 86803; 87389; 87636; 93005; 96365; 96375; 99284; J1100; J3475

== ENCOUNTER 2025-05-17 14:49 | Outpatient (CLI) | payer MEDICARE, MEDICAID, SELFPAY ==
--- OUTSIDE RECORDS SUMMARY | 2025-05-17 14:52 | XMS_ITS | Clinical Summary ---
[facility] Organization [facility] Address [address] [place] [address] Care Team Providers Care Openstack Cloud Consulting Architect Name Role Phone Provider, No Known Primary Care Provider Unavail able Allergies No known active allergies Medications No known medications Family History 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 Relation Name Comments Breast cancer Maternal Aunt Relation Name Status Comments Maternal Aunt Social History Tobacco Use Types Packs/Day Years Used Date Smoking Tobacco: Every Day Alcohol Use Standard Drinks/Week Comments No 0 (1 standard drink = 0.6 oz pur e alcohol) Abuse Screen Answer Date Recorded Unsafe at Home or Work/School Not on file Feels Threatened by Someone? Not on file 05/2023 Does Anyone Keep You from Co ntacting Others or Doint Things Outside the Home? Not on file 07/04/2023 Physical Sign of Abuse Present Not on file 1 Housing Stability Answer Date Recorded Current Living Arrangements Not on file 05/2023 Potentially Unsafe Housing Conditions Not on anne e 07/04/2023 Family and Community Support Answer Gino e Recorded Help with Day-to-Day Activities Not on file 07/04/2023 Lonely or Isolated Not on file 07/04/2023 Employment Answer Date Recorded Do you want help finding or keeping work or a juancho b? Not on file 07/04/2023 Disabilities Answer Date Recorded Concentrating, Remembering, or Making Decisions Difficulty Not on file 07/04/2023 Doing Errands Independently Difficulty Not on fi le 07/04/2023 Education Answer Date Recorded Help with school or training? Not on file Preferred Language Not on file 07/04/2023 Comments Unknown Sex and Gender Information Value Date Recorded Sex Assigned at Not on file Legal Sex Female 1:24 PM EDT Gender Identity Not on file Sexual Orientation Not on file Last Filed Vital Signs Vital Sign Reading Time Taken Comments Blood Pressure 110/74 07/13/2016 11:20 AM EDT Pulse - - Temperature - - Respiratory Rate 14 07/13/2016 11:20 AM EDT Oxygen Saturation - - Inhaled Oxygen Concentration - - Weight 83.9 kg (185 lb) 07/13/2016 11:20 AM EDT Height 157.5 cm (5' 2 ) 07/13/2016 11:20 AM EDT Body Mass Index 33.84 07/13/2016 11:20 AM EDT Plan of Treatment Health Maintenance Due Date Last Done Comments Annual Gynecologic Pelvic an d Breast Exam 1975 TDAP/TD VACCINES (1 - Tdap) 1994 MAMMOGRAM 2015 ANNUAL PHYSICAL 07/13/2016 HEPATITIS C SCREENING 07/13/2016 COLOGUARD 2020 COLON CANCER SCREENING 5 YEA R SIGMOIDOSCOPY 2020 COLONOSCOPY [address] CANCER SCREENING 2020 CT COLONOGRAPHY 2020 FECAL OCCULT BLOOD TEST 2020 FIT Testing (1 year) 2020 COVID-19 Vaccine (2023-2 5 season) 2024 INFLUENZA VACCINE 06/26/2025 Pneumococcal Vaccine 0-49 Aged Out No longer eligible based on patient's age to complete this topic Insurance MEDICARE A & B MEDICAID [place] Care Teams Openstack Cloud Consulting Architect Relationship Specialty Start Date End Date Provider, [place] [address] PCP - General 11/21/18
--- OUTSIDE RECORDS SUMMARY | 2025-05-17 14:52 | XMS_ITS | Encounter Summary ---
Author Organization [facility] [place] [address] Care Team Providers Care Marble Installation Helper Name Role Phone Osmani Valladares MD Unavailable Encounter Details Date Type Department Care Team (Late st Contact Info) Description 06/08/2021 Orders Only [facility] [address] [facility] [address] [place] [address] Osmani Valladares MD [address] [place] [address] Social History Tobacco Use Types Packs/Day Years Used Date Smoking Tobacco: Every Day Cigarettes 1 24.6 Started: 2000 Smokeless Tobacco: Never Comments Unknown [...] CATH ORDERABLES Final Result [facility] [address] [place] [address] documented in this encounter Visit Diagnoses Not on filedocumented in this encounter Care Teams Marble Installation Helper Relationship Specialty Start Date End Date Osmani Valladares MD [address] [place] [address] Consulting Physician Internal Medicine - Clinical Cardiac Electrophysiology 03/07/18 documented as of this encounter
--- OUTSIDE RECORDS SUMMARY | 2025-05-17 14:52 | XMS_ITS | Clinical Summary ---
Author Organization [facility] [place] Address [address] [place] [address] Phone Care Team Providers Care Link Wire Fabric Machine Operator Name Role Phone Osmani Valladares MD Unavailable [phone] Allergies No known active allergies Medications atorvastatin [...] implantable loop record er 05/19/2021 Overview (05/19/2021): [employer] LUX-Dx ILR implanted by Fuad Roper @ [facility] on 01/01/21 Heart palpitations 05/13/2021 Essential hypertension [...] Sigmoidoscopy 2020 Virtual Colonography 2020 COVID-19 Vaccine ( - 2023-2 5 season) 2024 Influenza Vaccine (#1) 2025 Meningococcal B Vaccine Aged Out No l onger eligible based on patient's age to complete this topic Pneumococcal Vaccine 0-49 Aged Out No longer eligible based on patient's age to complete this topic Medical Devices Implanted Type Area Silicator Device Identifier Shelf Expiration Date Model / Serial / Lot Loop [employer] Lux DX / [id number] / Insurance [place] [address] MEDICAID [place] [address] MEDICA[id number] Care Teams Link Wire Fabric Machine Operator Relationship Specialty Start Date End Date Osmani Valladares MD [address] [place] [address] [place] [address] Consulting Physician Internal Medicine - Clinical Cardiac Electrophysiology 03/07/18
--- OUTSIDE RECORDS SUMMARY | 2025-05-17 14:52 | XMS_ITS | Encounter Summary ---
Author Organization [facility] Address [address] [place] [address] Care Team Providers Care Electronics Technician Name Role Phone Nitin Rose OD Primary Care Provider [phone] Encounter Details Date Type Department Care Team (Late st Contact Info) Description 04/13/2021 Ophth Exam [facility] [address] [place] [address] Kody Brewer MD [address] [address] Social History Tobacco Use Types [...] on filedocumented in this encounter Care Teams Electronics Technician Relationship Specialty Start Date End Date Nitin Rose OD [address] [place] [address] PCP - General 02/06/21 documented as of this encounter
--- OUTSIDE RECORDS SUMMARY | 2025-05-17 14:52 | XMS_ITS ---
Laboratory report Created on: May 07, 2025 SAMARA HUGO : 1975 Sex: Female Author Name USHA MARTINEZ Unknown PROBLEMS Problems List Code Description M54.41 M54.42 G89.29 Z11.59 Z11.4 F41.1 E78.2 Z13.1 RESULTS Laboratory Orders Date Order Code Test 2025-05-03 532357 HEMOGLOBIN A1C 2025-05-03 373802 CBC WITH DIFFERE NTIAL/PLATELET 2025-05-03 [id number] COMP. METABOLIC PANEL (14) 2025-05-03 469822 HCV ANTIBODY MURIEL MALCOLM(PCR/JOSETTE) 2025-05-03 [id number] LIPID PANEL Laboratory Results Date LOINC Test Value Unit Reference Range Interpre tation 2025-05-03 4548-4 HEMOGLOBIN A1C 5.9 % 4.8-5.6 H 2025-05-03 6690-2 WBC 8.2 X10E3/UL 3.4-10.8 2025-05-03 789-8 RBC 4.64 X10E6/UL 3.77-5.28 2025-05-03 718-7 HEMOGLOBIN 11.7 G/DL 11.1-15.9 2025-05-03 4544-3 HEMATOCRIT 38.5 % 34.0-46.6 2025-05-03 787-2 MCV 83 FL 79-97 2025-05-03 785-6 MCH 25.2 PG 26.6-33.0 L 2025-05-03 786-4 MCHC 30.4 G/DL 31.5-35.7 L 2025-05-03 788-0 RDW 15.1 % 11.7-15.4 2025-05-03 777-3 PLATELETS 347 X10E3/UL 563-291 2518-08-08 770-8 NEUTROPHILS 70 % 2025-05-03 736-9 LYMPHS 22 % 2025-05-03 5905-5 MONOCYTES 5 % 2025-05-03 713-8 EOS 2 % 2025-05-03 706-2 BASOS 1 % 2025-05-03 751-8 NEUTROPHILS (ABSOLUTE) 5.7 X10E3/UL 1.4-7.0 2025-05-03 731-0 LYMPHS (ABSOLUTE) 1.8 X10E3/UL 0.7-3.1 2025-05-03 742-7 MONOCYTES(ABSOLUTE) .4 X10E3/UL 0.1-0.9 2025-05-03 711-2 EOS (ABSOLUTE) .2 X10E3/UL 0.0-0.4 2025-05-03 704-7 BASO (ABSOLUTE) .1 X10E3/UL 0.0-0.2 2025-05-03 79958-6 IMMATURE GRANULOCYTES 0 % 2025-05-03 56373-0 IMMATURE GRANS (ABS) 0 X10E3/UL 0.0-0.1 2025-05-03 2345-7 GLUCOSE 89 MG/DL 70-99 2025-05-03 3094-0 BUN 5 MG/DL 6-24 L 2025-05-03 2160-0 CREATININE .87 MG/DL 0.57-1.00 2025-05-03 83493-9 EGFR 82 ML/MIN/1.7 3 >59 2025-05-03 3097-3 BUN/CREATININE RATIO 6 9-23 L 2025-05-03 2951-2 SODIUM 135 MMOL/L 872-107 0277-08-08 2823-3 POTASSIUM 4.2 MMOL/L 3.5-5.2 2025-05-03 2075-0 CHLORIDE 101 MMOL/L 96-106 2025-05-03 2028-9 CARBON DIOXIDE, TOTAL 21 MMOL/L 20-29 2025-05-03 10626-9 CALCIUM 9.1 MG/DL 8.7-10.2 2025-05-03 2885-2 PROTEIN, TOTAL 6.6 G/DL 6.0-8.5 2025-05-03 1751-7 ALBUMIN 4.2 G/DL 3.9-4.9 2025-05-03 13099-3 GLOBULIN, TOTAL 2.4 G/DL 1.5-4.5 2025-05-03 1975-2 BILIRUBIN, TOTAL .8 MG/DL 0.0-1.2 2025-05-03 6768-6 ALKALINE PHOSPHATASE 102 IU/L 44-121 2025-05-03 1920-8 AST (SGOT) 24 IU/L 0-40 2025-05-03 1742-6 ALT (SGPT) 30 IU/L 0-32 2025-05-03 28807-1 HCV AB NR NON REACTIVE 2025-05-03 2093-3 CHOLESTEROL, TOTAL 178 MG/DL 226-670 1019-08-08 2571-8 TRIGLYCERIDES 162 MG/DL 0-149 H 2025-05-03 2085-9 HDL CHOLESTEROL 31 MG/DL >39 L 2025-05-03 04211-5 VLDL CHOLESTEROL FAVIOLA 29 MG/DL 5-40 2025-05-03 82381-7 LDL CHOL CALC ([facility]) 118 MG/DL 0-99 H
--- OUTSIDE RECORDS SUMMARY | 2025-05-17 14:52 | XMS_ITS | Clinical Summary ---
Author Organization [facility] Address [address] [place] [address] Care Team Providers Care Commercial Painter Name Role Phone Nitin Rose OD Primary Care Provider [phone] Allergies No known active allergies Medications metoprolol [...] Date Last Done Comments [facility]-Depression Screening 1975 [facility]-Infant/Child/Adol SDOH Screenings 1975 [facility]- SDOH Screenings 1993 [...] 2020 Sigmoidoscopy 2020 [facility]-Colorectal Cancer Screening 2020 [id number] Vaccine (1 - season) 2024 [facility]-Influenza Vaccine [...] Narrative SUNQUEST - 12/30/2004 1:44 PM EDT [facility] MR #: [id number] [facility] [address] [place] [address] 1975 (Age: 29) FW Collect Date: 12/23/2004 00:00 Receipt Date: 12/25/2004 12:49 Page 1 DEPARTMENT OF PATHOLOGY AND LABORATORY MEDICINE CYTOPATHOLOGY REPORT Email: [email or web address] [phone] ATTENDING MD/Practitioner: Batsheva Espana MD Service: PAT Location: OUTS Reported: 12/30/2004 13:44 Collected: 12/23/2004 00:00 INTERPRETATION THIN PREP (CERVICAL/VAGINAL): NEGATIVE FOR INTRAEPITHELIAL LESION OR MALIGNANCY. SATISFACTORY FOR EVALUATION; ENDOCERVICAL/ TRANSFORMATION ZONE COMPONENT PRESENT. Slide scanned and imaged by TV2 Holding ThinPrep Imaging System with manual review of [...] results is suggested (please call Microbiology at [phone] for results). CLINICAL INFORMATION: Menstrual History: Date of Last Menstrual Period: {Not Provided} SPECIMEN DESCRIPTION: A: THIN PREP (CERVICAL/VAGINAL) THIN PREP PROCESS CELLULAR ENHANCEMENT ICD: V76.2 CERVIX, SPECIAL SCREENING FOR MALIGNANT NEOPLASM F: A; RT IMAGE [id number] SNOMED CODES: A; [id number] [id number] [id number] In cases where a pathologist has signed out the report, the service has been rendered in part by a resident. The signing pathologist has performed and is responsible for the reported pathologic evaluation. us Historical Provider LAB PATHOLOGY ORDERABLES Fin al Result SUNQUEST from Last 3 Months or Most Recently Relevant to Health Maintenance Insurance MEDICARE [place]ICAID[place] Care Teams Commercial Painter Relationship Specialty Start Date End Date Nitin Rose OD [address] [place] [address] PCP - General 02/06/21
== END 2025-05-17 23:59 | disposition home or self-care (01) ==
LOC: RT 14:50
PROVIDERS: Visit Provider Nurse Practitioner Family
DX: R06.2 Wheezing (principal); R06.02 Shortness of breath
CPT/HCPCS: 94060; 94726; 94729